=== PATIENT | male | born 1940 | race Caucasian/White ===

== ENCOUNTER 2017-03-20 13:59 | Emergency (ER) | payer MEDICARE ==
[~2017-03-20] VITALS: Ht 172.7 cm; Wt 65.0 kg
[~2017-03-20 13:59] MED LIST: ACET1CAP18 PO; ALLE10TA10 PO; ATOR20TA15 PO; CLON.1 PO; COLL30T TOPICAL; DILA100C PO; FERR325T PO; HYDR25TA35 PO; KEPP10002 PO; LISI-515 PO; LORA-392 PO; MAGN400T2 PO; MAGNSOL PO; METO50TA PO; SERT-129 PO; TRIPOIN TOPICAL
[2017-03-20 14:00] VITALS: BP 192/86; PULSE 89; RESP 16; TEMP 98.1; O2SAT 98
--- NOTE | 2017-03-20 14:49 | PD ---
HPI Chief Complaint: Fall Time Seen by Provider: 14:34 Travel History International Travel<30 days: No Contact w/Intl Traveler<30days: No Traveled to known affect area: No History of Present Illness HPI 76-year-old male here for evaluation for right ankle pain status post fall prior to arrival. The injury occurred when the patient was transferring from his wheelchair to a bed and fell from a seated position to the floor because the wheelchair was not locked. Patient denies head injury. He denies loss of consciousness. He does have a history of dementia and is on Plavix. He is reporting right ankle pain. He denies headache, visual changes, chest pain, shortness of breath, abdominal pain. Symptom severity is mild. No alleviating factors PFSH Past Medical History Hx Anticoagulant Therapy: Yes (Plavix 75mg Daily) Arthritis: Yes (bilateral hands) Asthma: No Autoimmune Disease: No Anxiety: Yes Depression: Yes Heart Rhythm Problems: No Cancer: No Cardiovascular Problems: Yes High Cholesterol: Yes Chemotherapy: No Chest Pain: No Congestive Heart Failure: No COPD: No Cerebrovascular Accident: No Diabetes: Yes Diminished Hearing: Yes Endocrine: Yes GERD: Yes Genitourinary: No Headaches: Yes Hiatal Hernia: No Hypertension: Yes Immune Disorder: No Implanted Vascular Access Dvce: Yes Kidney Stones: No Musculoskeletal: No Neurologic: Yes Psychiatric: No Reproductive: No Respiratory: No Migraines: No Radiation Therapy: No Renal Failure: No Seizures: Yes ( st in 2011) Sickle Cell Disease: No Sleep Apnea: Yes Thyroid Disease: No Ulcer: No Past Surgical History Abdominal Surgery: Yes (appendectomy) AICD: No Appendectomy: Yes Arteriovenous Shunt: No Body Medical Devices: cardiac stents Cardiac Surgery: Yes (stent) Coronary Stent: Yes (X1) Ear Surgery: No Endocrine Surgery: No Eye Surgery: No Genitourinary Surgery: No Gynecologic Surgery: No Insulin Pump: No Joint Replacement: No Neurologic Surgery: Yes (CRANIOTOMY WITH SHUNT ) Oral Surgery: No Pacemaker: No Thoracic Surgery: No Tonsillectomy: Yes Other Surgery: Yes Social History Alcohol Use: No Tobacco Use: No Substance Use: No Allergies-Medications (Allergen,Severity, Reaction): Coded Allergies: Sulfa (Sulfonamide Antibiotics) (Unverified Allergy, Severe, 03/20/17) penicillin G (Unverified Allergy, Severe, RASHES, 11/3/17) Reported Meds & Prescriptions Reported Meds & Active Scripts Active Reported Plavix (Clopidogrel Bisulfate) 75 Mg Tab 75 Mg PO DAILY Sertraline (Sertraline HCl) 100 Mg Tab 100 Mg PO BID Metoprolol Tartrate 50 Mg Tab 50 Mg PO BID Magnesium Oxide 400 Mg Tab 400 Mg PO DIRECTED Allergy (Loratadine) 10 Mg Tab 10 Mg PO HS PRN Lisinopril 20 Mg Tab 20 Mg PO BID Keppra (Levetiracetam) 1,000 Mg Tab 1,000 Mg PO Q8HR PRN Dilantin (Phenytoin Extended) 100 Mg Cap 200 Mg PO BID Eq Magnesium Citrate (Magnesium Citrate) 1.745 Gm/30 Ml Lizzette 1.745 Gm PO PRN PRN Atorvastatin (Atorvastatin Calcium) 20 Mg Tab 20 Mg PO HS Review of Systems Except as stated in HPI: all other systems reviewed are Neg Physical Exam Narrative GENERAL: Well-nourished, well-developed patient. SKIN: Focused skin assessment warm/dry. No areas of ecchymosis HEAD: Normocephalic. Atraumatic EYES: No scleral icterus. No injection or drainage. NECK: Supple, trachea midline. No JVD or lymphadenopathy. No midline cervical spine tenderness CARDIOVASCULAR: Regular rate and rhythm without murmurs, gallops, or rubs. RESPIRATORY: Breath sounds equal bilaterally. No accessory muscle use. GASTROINTESTINAL: Abdomen soft, non-tender, nondistended. MUSCULOSKELETAL: No cyanosis, or edema. Right lower extremity: Tenderness to the lateral medial aspect. No swelling. No deformity. No areas of ecchymosis. 2+ distal pulses. Brisk cap refill. Full range of motion of the hip, knee. Reported tenderness with range of motion of the ankle BACK: Nontender without obvious deformity. No CVA tenderness. Data Data Last Documented VS Vital Signs Date Time Temp Pulse Resp B/P (MAP) Pulse Ox O2 Delivery O2 Flow Rate FiO2 03/20/17 15:10 59 18 172/77 (108) 96 Room Air 03/20/17 14:[address] Brain W/O Iv Contrast(Rout) (03/20/17 ) Ankle, Complete ([id number]) (03/20/17 ) MDM Medical Decision Making Medical Screen Exam Complete: Yes Emergency Medical Condition: Yes Differential Diagnosis Ankle fracture versus sprain versus ICH Narrative Course 76-year-old male here for evaluation of right ankle pain status post fall while transferring from his wheelchair to his bed. He reports no head injury or loss of consciousness. Patient does have a history of dementia and is on Plavix. CT scan of the brain, x-ray of the right ankle ordered and pending CT brain: Negative for acute findings X-ray right ankle: Negative for fracture dislocation Diagnostic studies discussed with patient and family. Return precautions discussed. Patient and family verbalizes understanding and agrees to plan Diagnosis Primary Impression: Ankle sprain Qualified Codes: S93.401A - Sprain of unspecified ligament of right ankle, initial encounter Referrals: Primary Care Physician Additional Instructions: Take [id number] Tylenol as needed for pain. Follow-up with her primary doctor. Return to emergency department if he developed new or worsening symptoms Disposition: 01 DISCHARGE HOME Condition: Stable Fabiola Hobbs Mar 20, 2017 14:49
[2017-03-20 15:10] VITALS: BP 172/77; PULSE 59; RESP 18; O2SAT 96
[2017-03-20] MEDS ORDERED: PLAV75TA29 PO (15:21)
--- NOTE | 2017-03-20 15:27 | RADRPT ---
EXAM DATE/TIME: 03/20/2017 15:07 [facility] COMPARISON: CT BRAIN W/O CONTRAST, March 31, 2016, 20:02. INDICATIONS : Trauma. Fall. RADIATION DOSE: 62.67 CTDIvol (mGy) MEDICAL HISTORY : Seizures. Diabetes mellitus type 2. Cardiovascular diseaseHypertension. SURGICAL HISTORY : Craniotomy. Coronary artery stent.Appendectomy. ENCOUNTER: Initial ACUITY: 1 day PAIN SCALE: 0/10 LOCATION: cranial TECHNIQUE: Multiple contiguous axial images were obtained of the head. Using automated exposure control and adj ustment of the mA and/or kV according to patient size, radiation dose was kept as low as reasonably a chievable to obtain optimal diagnostic quality images. DICOM format image data is available electro nically for review and comparison. FINDINGS: CEREBRUM: Mild central cerebral atrophy is stable. No evidence of midline shift, mass lesion, hemorrhage or acu te infarction. No extra-axial fluid collections are seen. POSTERIOR FOSSA: Encephalomalacia is again noted within the right cerebellar hemisphere. The brainstem is intact. The 4th ventricle is midline. The cerebellopontine angle is unremarkable. EXTRACRANIAL: The visualized portion of the orbits is intact. SKULL: Right occipital craniectomy is stable. No evidence of skull fracture. CONCLUSION: 1. Stable encephalomalacia involving the right cerebellar hemisphere. 2. Mild stable central cerebral atrophy. 3. No acute infarct, acute hemorrhage, mass effect or extra-axial fluid collections. Edmond Kauffman MD on March 20, 2017 at 15:23 Board Certified Radiologist. This report was verified electronically.
--- NOTE | 2017-03-20 15:38 | RADRPT ---
EXAM DATE/TIME: 03/20/2017 15:17 [facility] COMPARISON: No previous studies available for comparison. INDICATIONS : Right ankle pain after patient fell from wheelchair today MEDICAL HISTORY : None. SURGICAL HISTORY : None. ENCOUNTER: Initial ACUITY: 1 day PAIN SCORE: 5/10 LOCATION: Right entire ankle FINDINGS: Moderate vascular calcifications are evident. There is disuse osteopenia. There is no evidence for fracture. CONCLUSION: Negative for fracture. Mike Grimes MD FACR on March 20, 2017 at 15:36 Board Certified Radiologist. This report was verified electronically.
[2017-03-20 17:59] VITALS: BP 162/74
== END 2017-03-20 18:00 | disposition home or self-care (01) ==
LOC: PHEFT 13:59
DX: S93.401A Sprain of unspecified ligament of right ankle, initial encounter (principal); I10 Essential (primary) hypertension; W05.0XXA Fall from non-moving wheelchair, initial encounter; Y93.89 Activity, other specified
CPT/HCPCS: 70450; 73610; 99284

== ENCOUNTER 2018-03-04 13:52 | Inpatient (IN) ==
[2018-03-04] MEDS ORDERED: Sodium Chlor 0.9% Inj 500 ML IV.SIG SCH ×2 (16:00→17:00)
--- NOTE | 2018-03-04 16:00 | ED ---
HPI General Chief complaint: Nausea/Vomiting/Diarrhea Stated complaint: fever x thursday-n/v/d dark urine Time Seen by Provider: 03/04/18 15:15 Source: patient Mode of arrival: ambulatory Limitations: no limitations History of Present Illness HPI narrative: Patient is a 77-year-old male brought in by due to concerns for nausea and vomiting. Per , patient was running a fever over the weekend , as high as 101. She says that is improved, but he continued to vomit. She says that she is concerned he may be dehydrated. She reports that he has become more weak and less responsive, so she brought him in. Patient is awake, he has no complaints. Per , he never complains about anything. Severity is moderate. Related Data Home Medications Medication Instructions Recorded Confirmed atorvastatin 20 mg PO DAILY 03/04/18 03/04/18 clopidogrel 75 mg PO DAILY 03/04/18 03/04/18 levetiracetam 1,000 mg PO TID 03/04/18 03/04/18 lisinopril 20 mg PO BID 03/04/18 03/04/18 metoprolol tartrate 50 mg PO BID 03/04/18 03/04/18 phenytoin sodium extended 100 mg PO DAILY 03/04/18 03/04/18 sertraline 100 mg PO BID 03/04/18 03/04/18 Allergies Allergy/AdvReac Type Severity Reaction Status Date / Time penicillin G Allergy Severe RASHES Verified 03/04/18 14:00 Sulfa (Sulfonamide Allergy Severe Rash Verified 03/04/18 14:00 Antibiotics) Review of Systems ROS Unobtainable ROS Unobtainable: unobtainable due to mental status PMFSH Medical History Medical History AVM (arteriovenous malformation) (Acute) CAD (coronary artery disease) (Acute) Depression (Acute) HTN (hypertension) (Acute) High cholesterol (Acute) History of brain tumor (Acute) History of seizure (Acute) Surgical History Surgical History History of appendectomy (Acute) History of coronary artery stent placement (Acute) History of tonsillectomy (Acute) Family History Family History Mother Family history of heart disease Social History Social History Substance History: No History of Abuse Smoking Status: Unknown if ever smoked How Often Do You Have a Drink Containing Alcohol: Never Recent Travel in [facility] within the Last 8 Weeks: No Recent Out of Country Travel within the Last 8 Weeks: No Immunization History Tetanus Immunization: Unsure Exam Narrative Exam Narrative: GENERAL: Awake and alert, no acute distress. SKIN: Focused skin assessment warm/dry. No wounds or signs of infection. HEAD: Atraumatic. Normocephalic. EYES: Pupils equal and round. No scleral icterus. ENT: Mucous membranes pink and moist. NECK: Trachea midline. No JVD. CARDIOVASCULAR: Regular rate and rhythm. No murmur appreciated. RESPIRATORY: No accessory muscle use. Clear to auscultation. Breath sounds equal bilaterally. GASTROINTESTINAL: Abdomen soft, non-tender, nondistended. MUSCULOSKELETAL: No obvious deformities. No clubbing. No cyanosis. No edema. NEUROLOGICAL: Awake and alert. No obvious cranial nerve deficits. Motor grossly within normal limits. Course Initial Documented Vital Signs Temperature 99.6 F 03/04/18 13:56 Pulse Rate 70 03/04/18 13:56 Respiratory Rate 18 03/04/18 13:56 Blood Pressure 171/77 H 03/04/18 13:56 Pulse Oximetry 96 03/04/18 13:56 Last Documented Vital Signs Temperature 98.2 F 03/07/18 04:40 Pulse Rate 81 03/07/18 05:08 Respiratory Rate 18 03/07/18 04:40 Blood Pressure 189/81 H 03/07/18 05:08 Pulse Oximetry 96 03/07/18 05:08 Medical Decision Making [facility] Narrative Medical decision making narrative: Patient is a 77-year-old male who comes in due to vomiting and diarrhea. reports fever over the weekend, currently is afebrile. IV established, labs sent. Labs concerning for elevated lipase, AST, ALT, bilirubin. CT abdomen pelvis performed shows possible cholecystitis. Patient given antibiotics. Given IV fluids. Given Zofran. Patient did become more alert with medications. Concern is patient may need ERCP, he will be transferred to the main hospital for admission. Medical Screen Exam Complete: Yes Emergency Medical Condition: Yes Differential Diagnosis Differential Diagnosis: Cholecystitis versus pancreatitis versus dehydration versus obstruction versus electrolyte abnormality Medical Records Medical records reviewed: Yes I reviewed the patient's medical records. Lab Data Lab results reviewed: Yes I reviewed the patient's lab results. Result diagrams: 03/07/18 05:45 03/07/18 05:45 Lab Results 03/04/18 03/04/18 03/04/18 Range/Units 16:17 16:17 16:17 CBC w Diff WBC (4.0-11.0) th/mm3 RBC (4.50-5.90) mil/mm3 Hgb (13.0-17.0) gm/dL Hct (39.0-51.0) % MCV (80.0-100.0) fL MCH (27.0-34.0) pg MCHC (32.0-36.0) % RDW (11.6-17.2) % Plt Count (150-450) th/mm3 MPV (7.0-11.0) fL Prelim Diff (Auto) Neut % (Auto) (16.0-70.0) % Lymph % (Auto) (9.0-44.0) % [place] % (Auto) (0.0-8.0) % Eos % (Auto) (0.0-4.0) % Baso % (Auto) (0.0-2.0) % Neut # (Auto) (1.8-7.7) th/mm3 Lymph # (Auto) (1.0-4.8) th/mm3 [place] # (Auto) (0.0-0.9) th/mm3 Eos # (Auto) (0.0-0.4) th/mm3 Baso # (Auto) (0.0-0.2) th/mm3 WBC Differential Diff Scan Differential Comment Platelet Estimate (Normal) Platelet Morphology (Normal) PT 13.2 H (9.8-11.6) sec INR 1.3 Ratio APTT 38.5 H (24.3-30.1) sec Sodium (136-145) meq/L Potassium (3.5-5.1) meq/L Chloride (98-107) meq/L Carbon Dioxide (21.0-32.0) meq/L Anion Gap (5-15) meq/L BUN (7-18) mg/dL Creatinine (0.60-1.30) mg/dL Estimated GFR (>89) mL/min POC Glucose (68-110) mg/dl Random Glucose (74-106) mg/dL Lactic Acid 0.9 (0.4-2.0) mmol/L Calcium (8.5-10.1) mg/dL Magnesium (1.5-2.5) mg/dL Total Bilirubin (0.2-1.0) mg/dL AST (15-37) U/L ALT (12-78) U/L Alkaline Phosphatase (45-117) U/L Ammonia (11-32) mcmol/L Total Creatine Kinase 64 (39-308) U/L Troponin I 0.02 (0.02-0.05) ng/mL Total Protein (6.4-8.2) g/dL Albumin (3.4-5.0) g/dL Lipase (73-393) U/L CA 19-9 Antigen (0.0-35.0) U/mL Urine Color (Yellw/Straw) Urine Clarity (Clear) Urine pH (5.0-8.5) Ur Specific [place] (1.002-1.035) Urine Protein (Neg-Trace) mg/dL Urine Glucose (UA) (Negative) mg/dL Urine Ketones (Negative) mg/dL Urine Occult Blood (Negative) Urine Nitrate (Negative) Urine Bilirubin (Negative) Urine Ictotest (Negative) Urine Urobilinogen (Less than 2) mg/dL Ur Leukocyte Esterase (Negative) Urine RBC (0-3) /hpf Urine WBC (0-5) /hpf Urine Bacteria (None) /hpf Hyaline Casts (0-3) /lpf Urine Mucus (Occasional) /lpf Micro UA Comment Ur Microscopic Review Urine Culture Comments Phenytoin (10.0-20.0) mcg/mL 03/04/18 03/04/18 03/04/18 Range/Units 16:17 16:17 16:30 CBC w Diff Slide review pending WBC 9.5 (4.0-11.0) th/mm3 RBC 3.59 L (4.50-5.90) mil/mm3 Hgb 10.3 L (13.0-17.0) gm/dL Hct 31.0 L (39.0-51.0) % MCV 86.4 (80.0-100.0) fL MCH 28.8 (27.0-34.0) pg MCHC 33.4 (32.0-36.0) % RDW 14.1 (11.6-17.2) % Plt Count 209 (150-450) th/mm3 MPV 8.9 (7.0-11.0) fL Prelim Diff (Auto) Neut % (Auto) 82.5 H (16.0-70.0) % Lymph % (Auto) 9.4 (9.0-44.0) % [place] % (Auto) 6.9 (0.0-8.0) % Eos % (Auto) 0.9 (0.0-4.0) % Baso % (Auto) 0.3 (0.0-2.0) % Neut # (Auto) 7.8 H (1.8-7.7) th/mm3 Lymph # (Auto) 0.9 L (1.0-4.8) th/mm3 [place] # (Auto) 0.7 (0.0-0.9) th/mm3 Eos # (Auto) 0.1 (0.0-0.4) th/mm3 Baso # (Auto) 0.0 (0.0-0.2) th/mm3 WBC Differential . Diff Scan Auto diff confirmed Differential Comment . Platelet Estimate Normal (Normal) Platelet Morphology Normal (Normal) PT (9.8-11.6) sec INR Ratio APTT (24.3-30.1) sec Sodium 135 L (136-145) meq/L Potassium 3.2 L (3.5-5.1) meq/L Chloride 99 (98-107) meq/L Carbon Dioxide 26.7 (21.0-32.0) meq/L Anion Gap 9 (5-15) meq/L BUN 14 (7-18) mg/dL Creatinine 0.93 (0.60-1.30) mg/dL Estimated GFR 79 L (>89) mL/min POC Glucose (68-110) mg/dl Random Glucose 416 H (74-106) mg/dL Lactic Acid (0.4-2.0) mmol/L Calcium 7.9 L (8.5-10.1) mg/dL Magnesium 2.0 (1.5-2.5) mg/dL Total Bilirubin 1.9 H (0.2-1.0) mg/dL AST 130 H (15-37) U/L ALT 154 H (12-78) U/L Alkaline Phosphatase 872 H (45-117) U/L Ammonia (11-32) mcmol/L Total Creatine Kinase (39-308) U/L Troponin I (0.02-0.05) ng/mL Total Protein 6.4 (6.4-8.2) g/dL Albumin 1.9 L (3.4-5.0) g/dL Lipase 1635 H (73-393) U/L CA 19-9 Antigen (0.0-35.0) U/mL Urine Color Dark-yellow (Yellw/Straw) Urine Clarity Clear (Clear) Urine pH 6.5 (5.0-8.5) Ur Specific [place] 1.025 (1.002-1.035) Urine Protein 300 or greater H (Neg-Trace) mg/dL Urine Glucose (UA) 1000 or greater H (Negative) mg/dL Urine Ketones Negative (Negative) mg/dL Urine Occult Blood Moderate H (Negative) Urine Nitrate Negative (Negative) Urine Bilirubin Moderate H (Negative) Urine Ictotest Positive H (Negative) Urine Urobilinogen 1.0 (Less than 2) mg/dL Ur Leukocyte Esterase Negative (Negative) Urine RBC 4-15 H (0-3) /hpf Urine WBC 0-5 (0-5) /hpf Urine Bacteria Few H (None) /hpf Hyaline Casts 0-3 (0-3) /lpf Urine Mucus Few H (Occasional) /lpf Micro UA Comment Cath-culture ind Ur Microscopic Review Microscopic reviewed Urine Culture Comments Cath-cult indicated Phenytoin (10.0-20.0) mcg/mL 03/04/18 03/05/18 03/05/18 Range/Units 19:10 06:00 06:00 CBC w Diff WBC 8.6 (4.0-11.0) th/mm3 RBC 3.33 L (4.50-5.90) mil/mm3 Hgb 9.6 L (13.0-17.0) gm/dL Hct 29.7 L (39.0-51.0) % MCV 89.1 (80.0-100.0) fL MCH 28.9 (27.0-34.0) pg MCHC 32.4 (32.0-36.0) % RDW 14.4 (11.6-17.2) % Plt Count 175 (150-450) th/mm3 MPV 8.4 (7.0-11.0) fL Prelim Diff (Auto) Neut % (Auto) 81.0 H (16.0-70.0) % Lymph % (Auto) 10.5 (9.0-44.0) % [place] % (Auto) 7.2 (0.0-8.0) % Eos % (Auto) 1.0 (0.0-4.0) % Baso % (Auto) 0.3 (0.0-2.0) % Neut # (Auto) 7.0 (1.8-7.7) th/mm3 Lymph # (Auto) 0.9 L (1.0-4.8) th/mm3 [place] # (Auto) 0.6 (0.0-0.9) th/mm3 Eos # (Auto) 0.1 (0.0-0.4) th/mm3 Baso # (Auto) 0.0 (0.0-0.2) th/mm3 WBC Differential . Diff Scan Differential Comment Auto diff final Platelet Estimate (Normal) Platelet Morphology (Normal) PT (9.8-11.6) sec INR Ratio APTT (24.3-30.1) sec Sodium 141 (136-145) meq/L Potassium 3.3 L (3.5-5.1) meq/L Chloride 106 (98-107) meq/L Carbon Dioxide 29.9 (21.0-32.0) meq/L Anion Gap 5 (5-15) meq/L BUN 10 (7-18) mg/dL Creatinine 0.67 (0.60-1.30) mg/dL Estimated GFR Greater than 89 (>89) mL/min POC Glucose 307 H (68-110) mg/dl Random Glucose 215 H D (74-106) mg/dL Lactic Acid (0.4-2.0) mmol/L Calcium 7.9 L (8.5-10.1) mg/dL Magnesium (1.5-2.5) mg/dL Total Bilirubin 1.5 H (0.2-1.0) mg/dL AST 94 H (15-37) U/L ALT 122 H (12-78) U/L Alkaline Phosphatase 755 H (45-117) U/L Ammonia (11-32) mcmol/L Total Creatine Kinase (39-308) U/L Troponin I (0.02-0.05) ng/mL Total Protein 5.7 L D (6.4-8.2) g/dL Albumin 1.8 L (3.4-5.0) g/dL Lipase (73-393) U/L CA 19-9 Antigen (0.0-35.0) U/mL Urine Color (Yellw/Straw) Urine Clarity (Clear) Urine pH (5.0-8.5) Ur Specific [place] (1.002-1.035) Urine Protein (Neg-Trace) mg/dL Urine Glucose (UA) (Negative) mg/dL Urine Ketones (Negative) mg/dL Urine Occult Blood (Negative) Urine Nitrate (Negative) Urine Bilirubin (Negative) Urine Ictotest (Negative) Urine Urobilinogen (Less than 2) mg/dL Ur Leukocyte Esterase (Negative) Urine RBC (0-3) /hpf Urine WBC (0-5) /hpf Urine Bacteria (None) /hpf Hyaline Casts (0-3) /lpf Urine Mucus (Occasional) /lpf Micro UA Comment Ur Microscopic Review Urine Culture Comments Phenytoin (10.0-20.0) mcg/mL 03/06/18 03/06/18 03/06/18 Range/Units 07:32 07:32 19:13 CBC w Diff WBC 10.5 (4.0-11.0) th/mm3 RBC 3.18 L (4.50-5.90) mil/mm3 Hgb 9.4 L (13.0-17.0) gm/dL Hct 28.2 L (39.0-51.0) % MCV 88.9 (80.0-100.0) fL MCH 29.5 (27.0-34.0) pg MCHC 33.2 (32.0-36.0) % RDW 14.5 (11.6-17.2) % Plt Count 194 (150-450) th/mm3 MPV 8.3 (7.0-11.0) fL Prelim Diff (Auto) Neut % (Auto) (16.0-70.0) % Lymph % (Auto) (9.0-44.0) % [place] % (Auto) (0.0-8.0) % Eos % (Auto) (0.0-4.0) % Baso % (Auto) (0.0-2.0) % Neut # (Auto) (1.8-7.7) th/mm3 Lymph # (Auto) (1.0-4.8) th/mm3 [place] # (Auto) (0.0-0.9) th/mm3 Eos # (Auto) (0.0-0.4) th/mm3 Baso # (Auto) (0.0-0.2) th/mm3 WBC Differential Diff Scan Differential Comment Platelet Estimate (Normal) Platelet Morphology (Normal) PT (9.8-11.6) sec INR Ratio APTT (24.3-30.1) sec Sodium 142 (136-145) meq/L Potassium 2.9 L* (3.5-5.1) meq/L Chloride 107 (98-107) meq/L Carbon Dioxide 24.8 (21.0-32.0) meq/L Anion Gap 10 (5-15) meq/L BUN 8 (7-18) mg/dL Creatinine 0.49 L (0.60-1.30) mg/dL Estimated GFR Greater than 89 (>89) mL/min POC Glucose (68-110) mg/dl Random Glucose 145 H (74-106) mg/dL Lactic Acid (0.4-2.0) mmol/L Calcium 7.7 L (8.5-10.1) mg/dL Magnesium (1.5-2.5) mg/dL Total Bilirubin 1.3 H (0.2-1.0) mg/dL AST 93 H (15-37) U/L ALT 110 H (12-78) U/L Alkaline Phosphatase 892 H (45-117) U/L Ammonia (11-32) mcmol/L Total Creatine Kinase (39-308) U/L Troponin I (0.02-0.05) ng/mL Total Protein 5.7 L (6.4-8.2) g/dL Albumin 1.7 L (3.4-5.0) g/dL Lipase 503 H (73-393) U/L CA 19-9 Antigen 173.5 H (0.0-35.0) U/mL Urine Color (Yellw/Straw) Urine Clarity (Clear) Urine pH (5.0-8.5) Ur Specific [place] (1.002-1.035) Urine Protein (Neg-Trace) mg/dL Urine Glucose (UA) (Negative) mg/dL Urine Ketones (Negative) mg/dL Urine Occult Blood (Negative) Urine Nitrate (Negative) Urine Bilirubin (Negative) Urine Ictotest (Negative) Urine Urobilinogen (Less than 2) mg/dL Ur Leukocyte Esterase (Negative) Urine RBC (0-3) /hpf Urine WBC (0-5) /hpf Urine Bacteria (None) /hpf Hyaline Casts (0-3) /lpf Urine Mucus (Occasional) /lpf Micro UA Comment Ur Microscopic Review Urine Culture Comments Phenytoin (10.0-20.0) mcg/mL 03/07/18 03/07/18 03/07/18 Range/Units 04:55 05:45 05:45 CBC w Diff WBC 7.4 (4.0-11.0) th/mm3 RBC 3.22 L (4.50-5.90) mil/mm3 Hgb 9.5 L (13.0-17.0) gm/dL Hct 28.7 L (39.0-51.0) % MCV 89.1 (80.0-100.0) fL MCH 29.4 (27.0-34.0) pg MCHC 33.0 (32.0-36.0) % RDW 14.2 (11.6-17.2) % Plt Count 200 (150-450) th/mm3 MPV 8.0 (7.0-11.0) fL Prelim Diff (Auto) Slide review pending Neut % (Auto) 80.2 H (16.0-70.0) % Lymph % (Auto) 10.2 (9.0-44.0) % [place] % (Auto) 7.3 (0.0-8.0) % Eos % (Auto) 2.0 (0.0-4.0) % Baso % (Auto) 0.3 (0.0-2.0) % Neut # (Auto) 5.9 (1.8-7.7) th/mm3 Lymph # (Auto) 0.8 L (1.0-4.8) th/mm3 [place] # (Auto) 0.5 (0.0-0.9) th/mm3 Eos # (Auto) 0.2 (0.0-0.4) th/mm3 Baso # (Auto) 0.0 (0.0-0.2) th/mm3 WBC Differential . Diff Scan Auto diff confirmed Differential Comment . Platelet Estimate Normal (Normal) Platelet Morphology Normal (Normal) PT (9.8-11.6) sec INR Ratio APTT (24.3-30.1) sec Sodium 141 (136-145) meq/L Potassium 2.9 L* (3.5-5.1) meq/L Chloride 107 (98-107) meq/L Carbon Dioxide 23.2 (21.0-32.0) meq/L Anion Gap 11 (5-15) meq/L BUN 8 (7-18) mg/dL Creatinine 0.75 (0.60-1.30) mg/dL Estimated GFR Greater than 89 (>89) mL/min POC Glucose 207 H (68-110) mg/dl Random Glucose 225 H (74-106) mg/dL Lactic Acid (0.4-2.0) mmol/L Calcium 7.5 L (8.5-10.1) mg/dL Magnesium 1.7 (1.5-2.5) mg/dL Total Bilirubin 1.0 (0.2-1.0) mg/dL AST 95 H (15-37) U/L ALT 100 H (12-78) U/L Alkaline Phosphatase 950 H (45-117) U/L Ammonia (11-32) mcmol/L Total Creatine Kinase 40 (39-308) U/L Troponin I (0.02-0.05) ng/mL Total Protein 5.6 L (6.4-8.2) g/dL Albumin 1.7 L (3.4-5.0) g/dL Lipase (73-393) U/L CA 19-9 Antigen (0.0-35.0) U/mL Urine Color (Yellw/Straw) Urine Clarity (Clear) Urine pH (5.0-8.5) Ur Specific [place] (1.002-1.035) Urine Protein (Neg-Trace) mg/dL Urine Glucose (UA) (Negative) mg/dL Urine Ketones (Negative) mg/dL Urine Occult Blood (Negative) Urine Nitrate (Negative) Urine Bilirubin (Negative) Urine Ictotest (Negative) Urine Urobilinogen (Less than 2) mg/dL Ur Leukocyte Esterase (Negative) Urine RBC (0-3) /hpf Urine WBC (0-5) /hpf Urine Bacteria (None) /hpf Hyaline Casts (0-3) /lpf Urine Mucus (Occasional) /lpf Micro UA Comment Ur Microscopic Review Urine Culture Comments Phenytoin 3.0 L (10.0-20.0) mcg/mL 03/07/18 Range/Units 05:45 CBC w Diff WBC (4.0-11.0) th/mm3 RBC (4.50-5.90) mil/mm3 Hgb (13.0-17.0) gm/dL Hct (39.0-51.0) % MCV (80.0-100.0) fL MCH (27.0-34.0) pg MCHC (32.0-36.0) % RDW (11.6-17.2) % Plt Count (150-450) th/mm3 MPV (7.0-11.0) fL Prelim Diff (Auto) Neut % (Auto) (16.0-70.0) % Lymph % (Auto) (9.0-44.0) % [place] % (Auto) (0.0-8.0) % Eos % (Auto) (0.0-4.0) % Baso % (Auto) (0.0-2.0) % Neut # (Auto) (1.8-7.7) th/mm3 Lymph # (Auto) (1.0-4.8) th/mm3 [place] # (Auto) (0.0-0.9) th/mm3 Eos # (Auto) (0.0-0.4) th/mm3 Baso # (Auto) (0.0-0.2) th/mm3 WBC Differential Diff Scan Differential Comment Platelet Estimate (Normal) Platelet Morphology (Normal) PT (9.8-11.6) sec INR Ratio APTT (24.3-30.1) sec Sodium (136-145) meq/L Potassium (3.5-5.1) meq/L Chloride (98-107) meq/L Carbon Dioxide (21.0-32.0) meq/L Anion Gap (5-15) meq/L BUN (7-18) mg/dL Creatinine (0.60-1.30) mg/dL Estimated GFR (>89) mL/min POC Glucose (68-110) mg/dl Random Glucose (74-106) mg/dL Lactic Acid (0.4-2.0) mmol/L Calcium (8.5-10.1) mg/dL Magnesium (1.5-2.5) mg/dL Total Bilirubin (0.2-1.0) mg/dL AST (15-37) U/L ALT (12-78) U/L Alkaline Phosphatase (45-117) U/L Ammonia 44 H (11-32) mcmol/L Total Creatine Kinase (39-308) U/L Troponin I (0.02-0.05) ng/mL Total Protein (6.4-8.2) g/dL Albumin (3.4-5.0) g/dL Lipase (73-393) U/L CA 19-9 Antigen (0.0-35.0) U/mL Urine Color (Yellw/Straw) Urine Clarity (Clear) Urine pH (5.0-8.5) Ur Specific [place] (1.002-1.035) Urine Protein (Neg-Trace) mg/dL Urine Glucose (UA) (Negative) mg/dL Urine Ketones (Negative) mg/dL Urine Occult Blood (Negative) Urine Nitrate (Negative) Urine Bilirubin (Negative) Urine Ictotest (Negative) Urine Urobilinogen (Less than 2) mg/dL Ur Leukocyte Esterase (Negative) Urine RBC (0-3) /hpf Urine WBC (0-5) /hpf Urine Bacteria (None) /hpf Hyaline Casts (0-3) /lpf Urine Mucus (Occasional) /lpf Micro UA Comment Ur Microscopic Review Urine Culture Comments Phenytoin (10.0-20.0) mcg/mL Imaging Data Radiologist's impression: Chest X-Ray 03/04/18 15:28 CONCLUSION: Negative examination. Head CT 03/04/18 15:28 CONCLUSION: 1. No acute findings. . Abdomen/Pelvis CT 03/04/18 16:53 CONCLUSION: 1. Mural thickening of the gallbladder. Questionable mild inflammatory changes around the gallbladder and pancreas. 2. Small hiatal hernia. 3. No bowel obstruction, free fluid or free air. Byrd catheter in bladder. Cholangiopancreatography MRI 03/05/18 00:00 CONCLUSION: 1. Abnormal gallbladder with wall thickening, pericholecystic inflammation, and possibly trace pericholecystic fluid, findings concerning for cholecystitis. There is sludge within the gallbladder. 2. Acute pancreatitis. Discharge Plan Discharge Disposition Patient Disposition: 30 Still Patient Discharge Condition Condition: Stable Discharge Details Diagnosis: Gallstone pancreatitis Physicians Team ED Provider: Maranda Millan Primary Care Provider: Dada Mazariegos Attending Provider: Gerald Wilson Other Providers: Tamra Piña ; Mayo Martinez ; [facility],Insurance ; Albaro Coley Discharge Interventions Interventions: ED Discharge Assessment Last Done: 03/04/18 23:30 Vital Signs Last Done: 03/04/18 23:30 Status ED Status: Left Department Discharge Information Discharge Date/Time: 03/04/18 23:31
[2018-03-04 16:39] LABS: Chloride 99 meq/L (98-107); Potassium 3.2 meq/L (3.5-5.1); Sodium 135 meq/L (136-145)
[2018-03-04 16:41] LABS: Baso % (Auto) 0.3 % (0.0-2.0); Eos # (Auto) 0.1 th/mm3 (0.0-0.4); Eos % (Auto) 0.9 % (0.0-4.0); Hemoglobin 10.3 gm/dL (13.0-17.0); Lymph # (Auto) 0.9 th/mm3 (1.0-4.8); Lymph % (Auto) 9.4 % (9.0-44.0); Mean Corpuscular HGB Conc 33.4 % (32.0-36.0); Mean Corpuscular Hemoglobin 28.8 pg (27.0-34.0); Mean Corpuscular Volume 86.4 fL (80.0-100.0); Mean Platelet Volume 8.9 fL (7.0-11.0); Mono # (Auto) 0.7 th/mm3 (0.0-0.9); Mono % (Auto) 6.9 % (0.0-8.0); Neut # (Auto) 7.8 th/mm3 (1.8-7.7); Neut % (Auto) 82.5 % (16.0-70.0); Platelet Count 209 th/mm3 (150-450); Red Blood Count 3.59 mil/mm3 (4.50-5.90); Red Cell Distribution Width 14.1 % (11.6-17.2); White Blood Count 9.5 th/mm3 (4.0-11.0)
--- NOTE | 2018-03-04 16:41 | CT ---
EXAM DATE: 03/04/2018 3:50 PM EDT AGE/SEX: 77 years / Male INDICATIONS: Altered mental status today. General weakness, fever, nausea, vomiting and diarrhea x 1 week. CLINICAL DATA: This is the patient's initial encounter. Patient reports that signs and symptoms have been present for 1 week and indicates a pain score of 0/10. MEDICAL/SURGICAL HISTORY: Seizures. Hypertension. Cardiovascular disease. Brain tumor. Coronary artery stent. Appendectomy. Brain tumor removed. RADIATION DOSE: 56.87 CTDI (mGy) COMPARISON: [facility], CT BRAIN W/O CONTRAST, 03/20/2017. . TECHNIQUE: CT of the head without contrast. Using automated exposure control and adjustment of the mA and/or kV according to patient size, radiation dose was kept as low as reasonably achievable to ob tain optimal diagnostic quality images. DICOM format image data is available electronically for revi ew and comparison. FINDINGS: Patient has had previous right occipital craniectomy with encephalomalacia and dystrophic calcificati on of the right cerebellar hemisphere. There is no evidence of intracranial hemorrhage, acute infarct , or mass. Remote right frontal insult with encephalomalacia seen. There is mild prominence of the CS F spaces. No fractures. CONCLUSION: 1. No acute findings. . Electronically signed by: Ehsan Canseco MD 03/04/2018 4:40 PM EDT
[2018-03-04 16:42] LABS: Albumin 1.9 g/dL (3.4-5.0); Anion Gap 9 meq/L (5-15); Calcium 7.9 mg/dL (8.5-10.1); Carbon Dioxide 26.7 meq/L (21.0-32.0)
[2018-03-04 16:44] LABS: Activated Partial Thrombo Time 38.5 sec (24.3-30.1); INR 1.3 Ratio; Prothrombin Time 13.2 sec (9.8-11.6)
[2018-03-04 16:46] LABS: Alanine Aminotransferase 154 U/L (12-78); Aspartate Aminotransferase 130 U/L (15-37); Blood Urea Nitrogen 14 mg/dL (7-18); Glomerular Filtration Rate 79 mL/min (>89); Glucose,Random 416 mg/dL (74-106)
[2018-03-04 16:46] LABS: Bilirubin,Urine Moderate (Negative); Clarity,Urine Clear (Clear); Leukocyte Esterase,Urine Negative (Negative); Nitrite,Urine Negative (Negative); PH,Urine 6.5 (5.0-8.5); Specific Gravity,Urine 1.025 (1.002-1.035)
[2018-03-04 16:48] LABS: Troponin I 0.02 ng/mL (0.02-0.05)
[2018-03-04 16:49] LABS: Color,Urine Dark-Yellow (Yellw/Straw)
[2018-03-04 16:51] LABS: Ictotest,Urine Positive (Negative)
[2018-03-04 16:51] LABS: Alkaline Phosphatase 872 U/L (45-117); Lipase 1635 U/L (73-393); Total Protein 6.4 g/dL (6.4-8.2)
[2018-03-04 16:53] LABS: WBC,Urine 0-5 /hpf (0-5)
[2018-03-04 16:55] LABS: Bacteria,Urine Few /hpf; Hyaline Casts,Urine 0-3 /lpf (0-3); Mucus,Urine Few /lpf (Occasional)
--- NOTE | 2018-03-04 17:02 | XR ---
EXAM DATE: 03/04/2018 3:28 PM EDT AGE/SEX: 77 years / Male INDICATIONS: Weakness, fever, nausea, and vomiting. CLINICAL DATA: This is the patient's initial encounter. Patient reports that signs and symptoms have been present for 1 week and indicates a pain score of 0/10. MEDICAL/SURGICAL HISTORY: . Seizures. Hypertension. Cardiovascular disease. Brain tumor. . Cor onary artery stent. Appendectomy. Brain tumor removed. COMPARISON: No prior exams available for comparison. FINDINGS: A single AP view of the chest demonstrates the lungs to be symmetrically aerated without evidence of mass, infiltrate or effusion. The cardiomediastinal contours are unremarkable. Osseous structures a re intact. CONCLUSION: Negative examination. Electronically signed by: Quinten Hwang MD 03/04/2018 5:01 PM EDT
[2018-03-04 17:38] LABS: Platelet Estimate Normal (Normal); Platelet Morphology Normal (Normal)
--- NOTE | 2018-03-04 18:54 | CT ---
EXAM DATE: 03/04/2018 6:14 PM EDT AGE/SEX: 77 years / Male INDICATIONS: General weakness. Fever. Nausea, vomiting and diarrhea. CLINICAL DATA: This is the patient's initial encounter. Patient reports that signs and symptoms have been present for 1 week and indicates a pain score of 0/10. MEDICAL/SURGICAL HISTORY: Seizures. Cardiovascular disease. Hypertension. Brain tumor. James endectomy. Coronary artery stent. Brain tumor removed. ORAL CONTRAST: No oral contrast ingested. RADIATION DOSE: 11.17 CTDI (mGy) COMPARISON: [facility] – [place] ABDOMEN & PELVIS W CONTRAST, 03/25/2015. . TECHNIQUE: Multiple contiguous axial images were obtained through the abdomen and pelvis following b olus infusion of 90 ml Omnipaque 350 (iohexol) nonionic water-soluble contrast as a single exam dos e. No oral contrast ingested. Using automated exposure control and adjustment of the mA and/or kV ac cording to patient size, radiation dose was kept as low as reasonably achievable to obtain optimal di agnostic quality images. DICOM format image data is available electronically for review and comparis on. FINDINGS: There is minimal basilar atelectasis in the lungs. Small hiatal hernia. No acute findings in the live r, spleen, adrenals, kidneys. There is mural thickening of the gallbladder with questionable mild pericholecystic inflammatory guillen ges. There is also some mild infiltration of fat around the pancreas most characteristic of a mild pa ncreatitis. No free fluid or free air. No bowel obstruction. Byrd catheter present in bladder. CONCLUSION: 1. Mural thickening of the gallbladder. Questionable mild inflammatory changes around the gallbladde r and pancreas. 2. Small hiatal hernia. 3. No bowel obstruction, free fluid or free air. Byrd catheter in bladder. Electronically signed by: Ashkan German MD 03/04/2018 6:53 PM EDT
[2018-03-04] MEDS ORDERED: Bisacodyl 10 MG Supp RECTAL PRN (22:17)
[2018-03-04] MEDS: Sod Chloride 0.9% Inj 1,000 ML IV.CONT SCH (23:01)
[2018-03-04] MEDS: levETIRAcetam 500 MG Tablet PO SCH (23:02)
--- NOTE | 2018-03-05 03:48 | P.HPIM ---
History of Present Illness Service: [facility] Primary Care Physician: Dada Mazariegos MD Chief Complaint: Nausea/vomiting/diarrhea History of Present Illness: Mr. Pena is a 77 y/o male with a history of cerebellar AVM s/p right suboccipital craniectomy for resection of cerebellar mass on 03/30/15, seizures , hypertension, CAD, depression, and hyperlipidemia who presented to the ER in [place] for nausea, diarrhea, vomiting, and fevers for 6 days. The patient was found to have findings suspicious for gallstone pancreatitis and was transferred to [facility] under the hospitalist service for further evaluation and management. . Inpatient Certification: I certify that the inpatient services were ordered in accordance with Medicare regulations governing the order. This includes certification that hospital inpatient services are reasonable and necessary and in the case of services not specified as inpatient-only under 42 CFR 419.22(n), that they are appropriately provided as inpatient services in accordance to with the 2-midnight benchmark under 43 CFR 412.3(e) Estimated Total Length of Stay (Days): 3 Plans for Post Hospital Care: Home Review of Systems unobtainable due to mental condition PMFSH - History History Provided By: Patient - Medical History Medical History: Medical History (Last Updated 03/05/18 @ 04:37 by CONCEPCIÓN Gray) AVM (arteriovenous malformation) CAD (coronary artery disease) Depression HTN (hypertension) High cholesterol History of brain tumor History of seizure - Surgical History Surgical History: Surgical History (Last Reviewed 03/05/18 @ 04:31 by CONCEPCIÓN Gray) History of appendectomy History of coronary artery stent placement History of tonsillectomy - Family History Family History: Family History (Last Updated 03/05/18 @ 04:37 by CONCEPCIÓN Gray) Mother Family history of heart disease - Tobacco History Smoking Status: Unknown if ever smoked - Alcohol History How Often Do You Have a Drink Containing Alcohol: Never - Substance Use History Substance History: No History of Abuse - Travel History Recent Travel in the [place] Within the Last 8 Weeks: No Recent Travel Out of the Country Within the Last 8 Weeks: No - Immunization History Tetanus Immunization: Unsure Medications and Allergies Active Medications: Active Medications Bisacodyl (Dulcolax Supp) 10 mg RECTAL DAILY PRN PRN Reason: SEVERE CONSITIPATION Clopidogrel Bisulfate (Plavix) 75 mg PO DAILY [facility] Sodium Chloride (Ns Inj) 500 mls @ 0 mls/hr IV.SIG BOLUS GINA Last Infusion: 03/04/18 17:31 Dose: Infused Sodium Chloride (Ns Inj) 500 mls @ 0 mls/hr IV.SIG BOLUS [facility] Last Infusion: 03/04/18 20:08 Dose: Infused Sodium Chloride (Ns Inj) 1,000 mls @ 84 mls/hr IV.CONT .[id number] [facility] Last Admin: 03/04/18 23:01 Dose: 84 mls/hr Lactulose (Lactulose Liq) 30 ml PO DAILY PRN PRN Reason: SEVERE CONSITIPATION Levetiracetam (Keppra) 1,000 mg PO TID [facility] Last Admin: 03/04/18 23:02 Dose: 1,000 mg Lisinopril (Prinivil) 20 mg PO BID [facility] Metoprolol Tartrate (Lopressor) 50 mg PO BID [facility] Ondansetron HCl (Zofran Inj) 4 mg IV.PUSH Q6H PRN PRN Reason: NAUSEA OR VOMITING Phenytoin Sodium (Dilantin) 100 mg PO DAILY [facility] Sennosides (Senokot) 17.2 mg PO Q12H PRN PRN Reason: Moderate Constipation Sertraline HCl (Zoloft) 100 mg PO BID [facility] Sodium Chloride (Ns Flush) 2 ml IV.FLUSH PRN PRN PRN Reason: FLUSH AFTER USING IV ACCESS Allergies Allergy/AdvReac Type Severity Reaction Status Date / Time penicillin G Allergy Severe RASHES Verified 03/04/18 14:00 Sulfa (Sulfonamide Allergy Severe Rash Verified 03/04/18 14:00 Antibiotics) Home Medications Medication Instructions Recorded Confirmed Type atorvastatin 20 mg PO DAILY 03/04/18 03/04/18 History clopidogrel 75 mg PO DAILY 03/04/18 03/04/18 History levetiracetam 1,000 mg PO TID 03/04/18 03/04/18 History lisinopril 20 mg PO BID 03/04/18 03/04/18 History metoprolol tartrate 50 mg PO BID 03/04/18 03/04/18 History phenytoin sodium extended 100 mg PO DAILY 03/04/18 03/04/18 History sertraline 100 mg PO BID 03/04/18 03/04/18 History Exam Vital signs: Vital Signs 03/04/18 13:56 03/04/18 18:00 03/04/18 20:51 Temperature 99.6 F Pulse Rate 70 71 73 Respiratory Rate 18 15 15 Blood Pressure 171/77 H 158/72 H 161/73 H Pulse Oximetry 96 99 98 03/04/18 23:30 03/05/18 00:56 Temperature 98.3 F Pulse Rate 78 79 Respiratory Rate 16 17 Blood Pressure 184/76 H 178/82 H Pulse Oximetry 100 96 Intake & Output 03/04/18 03/04/18 03/05/18 06:59 18:59 06:59 Intake Total 500 / 500 700 / 700 Balance 500 / 500 700 / 700 Weight 71.4 kg Intake: IV 500 / 500 700 / 700 NS Inj 500 ML @ Wide Open IV. 500 / 500 500 / 500 SIG BOLUS GINA Rx#:[id number] Rocephin Inj 1,000 MG In NS Inj 100 / 100 100 ML @ 200 mls/hr IV.SIG ONCE ONE Rx#:[id number] Flagyl 500 MG Inj 100 ML @ 100 100 / 100 mls/hr IV.SIG ONCE ONE Rx#: [id number] Other: Date of Last Bowel Movement 03/05/18 Narrative: GENERAL: This is an elderly male patient, in no apparent distress. SKIN: No rashes or lesions. Cool and dry. Jaundice noted. HEAD: Normocephalic. EYES: No injection or drainage. ENT: Nose without bleeding, purulent drainage. NECK: Trachea midline. No JVD. CARDIOVASCULAR: Regular rate and rhythm without murmurs, gallops, or rubs. RESPIRATORY: Clear to auscultation. Breath sounds equal bilaterally. No wheezes , rales, or rhonchi. GASTROINTESTINAL: Normal bowel sounds. Abdomen soft, non-tender, nondistended. No guarding. MUSCULOSKELETAL: Extremities without clubbing, cyanosis. NEUROLOGICAL: Awakened for exam and then alert. Follows commands. Confused ( chronic per EMR review) . Results - Labs CBC & Chem 7: 03/04/18 16:17 03/04/18 16:17 Labs: Short CBC 03/04/18 Range/Units 16:17 WBC 9.5 (4.0-11.0) th/mm3 Hgb 10.3 L (13.0-17.0) gm/dL Hct 31.0 L (39.0-51.0) % Plt Count 209 (150-450) th/mm3 BMP 03/04/18 16:17 Sodium 135 L Potassium 3.2 L Chloride 99 Carbon Dioxide 26.7 BUN 14 Creatinine 0.93 Calcium 7.9 L Cardiac Enzymes 03/04/18 Range/Units 16:17 Total Creatine Kinase 64 (39-308) U/L Troponin I 0.02 (0.02-0.05) ng/mL Liver Function 03/04/18 Range/Units 16:17 Total Bilirubin 1.9 H (0.2-1.0) mg/dL AST 130 H (15-37) U/L ALT 154 H (12-78) U/L Alkaline Phosphatase 872 H (45-117) U/L Albumin 1.9 L (3.4-5.0) g/dL Urine 03/04/18 Range/Units 16:30 Urine Color Dark-yellow (Yellw/Straw) Urine Clarity Clear (Clear) Urine pH 6.5 (5.0-8.5) Ur Specific [place] 1.025 (1.002-1.035) Urine Protein 300 or greater H (Neg-Trace) mg/dL Urine Glucose (UA) 1000 or greater H (Negative) mg/dL - Imaging Impressions Chest X-Ray 03/04/18 15:28 CONCLUSION: Negative examination. Head CT 03/04/18 15:28 CONCLUSION: 1. No acute findings. . Abdomen/Pelvis CT 03/04/18 16:53 CONCLUSION: 1. Mural thickening of the gallbladder. Questionable mild inflammatory changes around the gallbladder and pancreas. 2. Small hiatal hernia. 3. No bowel obstruction, free fluid or free air. Byrd catheter in bladder. Caprini VTE Risk Assessment Caprini VTE Risk Assessment: Moderate/High Risk (score >= 2) Caprini Risk Assessment Model: Point Value = 1 Point Value = 2 Point Value = 3 Point Value = 5 Age 41-60 Minor surgery BMI > 25 kg/m2 Swollen legs Varicose veins or History of unexplained or recurrent spontaneous Oral contraceptives or hormone replacement Sepsis (< 1 month) Serious lung disease, including pneumonia (< 1 month) Abnormal pulmonary function Acute myocardial infarction Congestive heart failure (< 1 month) History of inflammatory bowel disease Medical patient at bed rest Age 61-74 Arthroscopic surgery Major open surgery (> 45 min) Laparoscopic surgery (> 45 min) Malignancy Confined to bed (> 72 hours) Immobilizing plaster cast Central venous access Age >= 75 History of VTE Family history of VTE Factor V Leiden Prothrombin [id number] Lupus anticoagulant Anticardiolipin antibodies Elevated serum homocysteine Heparin-induced thrombocytopenia Other congenital or acquired thrombophilia Stroke (< 1 month) Elective arthroplasty Hip, pelvis, or leg fracture Acute spinal cord injury (< 1 month) Prophylaxis Regimen: Total Risk Factor Score Risk Level Prophylaxis Regimen 0-1 Low Early ambulation 2 Moderate Order ONE of the following: *Sequential Compression Device (SCD) *Heparin 5000 units SQ BID 3-4 Higher Order ONE of the following medications: *Heparin 5000 units SQ TID *Enoxaparin/Lovenox 40 mg SQ daily (WT < 150 kg, CrCl > 30 mL/min) *Enoxaparin/Lovenox 30 mg SQ daily (WT < 150 kg, CrCl > 10-29 mL/min) *Enoxaparin/Lovenox 30 mg SQ BID (WT < 150 kg, CrCl > 30 mL/min) AND/OR *Sequential Compression Device (SCD) 5 or more Highest Order ONE of the following medications: *Heparin 5000 units SQ TID (Preferred with Epidurals) *Enoxaparin/Lovenox 40 mg SQ daily (WT < 150 kg, CrCl > 30 mL/min) *Enoxaparin/Lovenox 30 mg SQ daily (WT < 150 kg, CrCl > 10-29 mL/min) *Enoxaparin/Lovenox 30 mg SQ BID (WT < 150 kg, CrCl > 30 mL/min) AND *Sequential Compression Device (SCD) Assessment and Plan - Plan Mr. Pena is a 77 y/o male with a history of cerebellar AVM s/p right suboccipital craniectomy for resection of cerebellar mass on 03/30/15, seizures , hypertension, CAD, depression, and hyperlipidemia who presented to the ER in [place] for nausea, diarrhea, vomiting, and fevers for 6 days. The patient was found to have findings suspicious for gallstone pancreatitis and was transferred to [facility] under the hospitalist service for further evaluation and management. Suspected gallstone pancreatitis -Abdomen/pelvis CT shows mural thickening of gallbladder, mild inflammatory changes around gallbladder and pancreas, no bowel obstruction -T bili 1.9, AST 130, ALT 154, alkaline phosphatase 872, lipase 1635 -Consult gastroenterology for possible ERCP -N.p.o. -Gentle IV fluid hydration with normal saline at 84 cc/h -Zofran 4 milligrams IV push every 6 hours as needed for nausea or vomiting Seizures -Continue home antiepileptics Keppra and Dilantin when able to take p.o. Hypokalemia -Replace potassium, repeat labs and monitor potassium levels, and replace further if needed History of coronary artery disease with stents -Resume home metoprolol -hold Plavix for now -resume after ERCP History of hypertension -Resume home lisinopril -Monitor trends in blood pressure readings and adjust treatments as needed DVT prophylaxis -SCDs Discussed Condition With: Dr. Walker . H&P: Quality - VTE Deep Vein Thrombosis/Pulmonary Embolism Present on Admission: No
[2018-03-05 07:24] LABS: Baso % (Auto) 0.3 % (0.0-2.0); Eos # (Auto) 0.1 th/mm3 (0.0-0.4); Hematocrit 29.7 % (39.0-51.0); Hemoglobin 9.6 gm/dL (13.0-17.0); Lymph # (Auto) 0.9 th/mm3 (1.0-4.8); Lymph % (Auto) 10.5 % (9.0-44.0); Mean Corpuscular HGB Conc 32.4 % (32.0-36.0); Mean Corpuscular Hemoglobin 28.9 pg (27.0-34.0); Mean Corpuscular Volume 89.1 fL (80.0-100.0); Mean Platelet Volume 8.4 fL (7.0-11.0); Mono # (Auto) 0.6 th/mm3 (0.0-0.9); Mono % (Auto) 7.2 % (0.0-8.0); Platelet Count 175 th/mm3 (150-450); Red Blood Count 3.33 mil/mm3 (4.50-5.90); Red Cell Distribution Width 14.4 % (11.6-17.2); White Blood Count 8.6 th/mm3 (4.0-11.0)
[2018-03-05 08:04] LABS: Alanine Aminotransferase 122 U/L (12-78); Albumin 1.8 g/dL (3.4-5.0); Anion Gap 5 meq/L (5-15); Blood Urea Nitrogen 10 mg/dL (7-18); Calcium 7.9 mg/dL (8.5-10.1); Carbon Dioxide 29.9 meq/L (21.0-32.0); Chloride 106 meq/L (98-107); Glomerular Filtration Rate Greater Than 89 mL/min (>89); Glucose,Random 215 mg/dL (74-106); Potassium 3.3 meq/L (3.5-5.1); Sodium 141 meq/L (136-145)
[2018-03-05 08:16] LABS: Alkaline Phosphatase 755 U/L (45-117); Aspartate Aminotransferase 94 U/L (15-37); Total Protein 5.7 g/dL (6.4-8.2)
--- NOTE | 2018-03-05 09:47 | MR ---
EXAM DATE: 03/05/2018 8:38 AM EDT AGE/SEX: 77 years / Male INDICATIONS: . Weakness with fever and nausea/vomiting. CLINICAL DATA: This is the patient's subsequent encounter. Patient reports that signs and symptoms h ave been present for 3 days and indicates a pain score of 3/10. MEDICAL/SURGICAL HISTORY: Seizures. Hypertension. Appendectomy. Tonsillectomy. cardiac stent, brain tumor removed COMPARISON: [facility], CT ABDOMEN & PELVIS W CONTRAST, 03/04/2018. . TECHNIQUE: Multiplanar, multisequence images of the abdomen were obtained without contrast including dedicated cholangiographic images. FINDINGS: The gallbladder is abnormal. There is wall thickening and induration of the pericholecystic fat. Ther e is layering sludge within the gallbladder. There is no evidence for biliary ductal dilatation. Live r, kidneys, spleen are unremarkable. Hiatal hernia is present. There is mild increased T2 signal with in the substance of the pancreas with peripancreatic fluid and stranding characteristic of pancreatit is. There is trace fluid in the hepatorenal spaces. CONCLUSION: 1. Abnormal gallbladder with wall thickening, pericholecystic inflammation, and possibly trace peric holecystic fluid, findings concerning for cholecystitis. There is sludge within the gallbladder. 2. Acute pancreatitis. Electronically signed by: Ehsan Canseco MD 03/05/2018 9:46 AM EDT
[2018-03-05] MEDS: Phenytoin Sodium 100 MG Capsule PO SCH (10:14)
[2018-03-05] MEDS: Lisinopril 20 MG Tablet PO SCH ×2 (10:14→21:01)
[2018-03-05] MEDS: Sertraline 100 MG Tablet PO SCH ×2 (10:14→21:01)
[2018-03-05] MEDS: Metoprolol Tartrate 50 MG Tablet PO SCH ×2 (10:14→21:01)
[2018-03-05] MEDS: levETIRAcetam 500 MG Tablet PO SCH ×3 (10:14→17:49)
[2018-03-05] MEDS: Sod Chloride 0.9% Inj 1,000 ML IV.CONT SCH (10:17)
--- NOTE | 2018-03-05 11:36 | P.CONGI ---
History of Present Illness Consult date: 03/05/18 Consult reason: Gallstone pancreatitis Chief complaint: pancreatitis, cholecystitis History of Present Illness: This patient is a 77-year-old male with a history of cerebellar AVMs status post craniectomy for resection of a mass in 2014. Patient also has significant history of seizures, hypertension, coronary artery disease, depression and hyperlipidemia. Surgical history includes appendectomy, coronary artery stent placement and tonsillectomy. Patient is pleasant and cooperative unable to provide history for consultation. Call placed to Pedro Pena patient's son, unable to contact at this time. Patient was brought to [facility] emergency room in [place] on 03/04/2018 for complaints of nausea, diarrhea, vomiting and fever times 1 week. Patient was transferred to [facility] in [place] for further evaluation of possible gallstone pancreatitis. Upon consultation patient denies any present abdominal pain or tenderness. There is no reported further vomiting noted. Our service has been consulted to evaluate patient for possible gallstone pancreatitis. Upon admission to ER WBC 9.5 hemoglobin 10.3 hematocrit 31.0 platelet count 209 INR 1.3 total bilirubin 1.9 AST 130 ALT 154 with an alk phos of 872 and lipase level of 1635. <Rafia Echeverria - Last Filed: 03/05/18 11:38> Review of Systems All other systems reviewed negative except as stated in HPI <Rafia Echeverria - Last Filed: 03/05/18 11:38> PMFSH - History History Provided By: Patient - Medical History Medical History: Medical History (Last Updated 03/05/18 @ 04:37 by CONCEPCIÓN Gray) AVM (arteriovenous malformation) CAD (coronary artery disease) Depression HTN (hypertension) High cholesterol History of brain tumor History of seizure - Surgical History Surgical History: Surgical History (Last Reviewed 03/05/18 @ 04:31 by CONCEPCIÓN Gray) History of appendectomy History of coronary artery stent placement History of tonsillectomy - Family History Family History: Family History (Last Updated 03/05/18 @ 04:37 by CONCEPCIÓN Gray) Mother Family history of heart disease - Tobacco History Smoking Status: Unknown if ever smoked - Alcohol History How Often Do You Have a Drink Containing Alcohol: Never - Substance Use History Substance History: No History of Abuse - Travel History Recent Travel in the [facility] Within the Last 8 Weeks: No Recent Travel Out of the Country Within the Last 8 Weeks: No - Immunization History Tetanus Immunization: Unsure <Rafia Echeverria - Last Filed: 03/05/18 11:38> - Medical History Medical History: Medical History (Last Updated 03/05/18 @ 04:37 by CONCEPCIÓN Gray) AVM (arteriovenous malformation) CAD (coronary artery disease) Depression HTN (hypertension) High cholesterol History of brain tumor History of seizure - Surgical History Surgical History: Surgical History (Last Reviewed 03/05/18 @ 04:31 by CONCEPCIÓN Gray) History of appendectomy History of coronary artery stent placement History of tonsillectomy - Family History Family History: Family History (Last Updated 03/05/18 @ 04:37 by CONCEPCIÓN Gray) Mother Family history of heart disease <Tamra Piña - Last Filed: 03/05/18 15:49> Medications and Allergies Active Medications: Active Medications Bisacodyl (Dulcolax Supp) 10 mg RECTAL DAILY PRN PRN Reason: SEVERE CONSITIPATION Clopidogrel Bisulfate (Plavix) 75 mg PO DAILY [facility] Enalaprilat (Vasotec Inj) 1.25 mg IV.PUSH Q6H PRN PRN Reason: BLOOD PRESSURE MANAGEMENT Sodium Chloride (Ns Inj) 500 mls @ 0 mls/hr IV.SIG BOLUS [facility] Last Infusion: 03/04/18 17:31 Dose: Infused Sodium Chloride (Ns Inj) 500 mls @ 0 mls/hr IV.SIG BOLUS [facility] Last Infusion: 03/04/18 20:08 Dose: Infused Sodium Chloride (Ns Inj) 1,000 mls @ 84 mls/hr IV.CONT .[id number] [facility] Last Admin: 03/05/18 10:17 Dose: 84 mls/hr Lactulose (Lactulose Liq) 30 ml PO DAILY PRN PRN Reason: SEVERE CONSITIPATION Levetiracetam (Keppra) 1,000 mg PO TID [facility] Last Admin: 03/05/18 10:14 Dose: 1,000 mg Lisinopril (Prinivil) 20 mg PO BID [facility] Last Admin: 03/05/18 10:14 Dose: 20 mg Metoprolol Tartrate (Lopressor) 50 mg PO BID [facility] Last Admin: 03/05/18 10:14 Dose: 50 mg Ondansetron HCl (Zofran Inj) 4 mg IV.PUSH Q6H PRN PRN Reason: NAUSEA OR VOMITING Phenytoin Sodium (Dilantin) 100 mg PO DAILY [facility] Last Admin: 03/05/18 10:14 Dose: 100 mg Sennosides (Senokot) 17.2 mg PO Q12H PRN PRN Reason: Moderate Constipation Sertraline HCl (Zoloft) 100 mg PO BID [facility] Last Admin: 03/05/18 10:14 Dose: 100 mg Sodium Chloride (Ns Flush) 2 ml IV.FLUSH PRN PRN PRN Reason: FLUSH AFTER USING IV ACCESS <Rafia Echeverria - Last Filed: 03/05/18 11:38> Active Medications: Active Medications Bisacodyl (Dulcolax Supp) 10 mg RECTAL DAILY PRN PRN Reason: SEVERE CONSITIPATION Clopidogrel Bisulfate (Plavix) 75 mg PO DAILY [facility] Enalaprilat (Vasotec Inj) 1.25 mg IV.PUSH Q6H PRN PRN Reason: BLOOD PRESSURE MANAGEMENT Sodium Chloride (Ns Inj) 500 mls @ 0 mls/hr IV.SIG BOLUS [facility] Last Infusion: 03/04/18 17:31 Dose: Infused Sodium Chloride (Ns Inj) 500 mls @ 0 mls/hr IV.SIG BOLUS [facility] Last Infusion: 03/04/18 20:08 Dose: Infused Sodium Chloride (Ns Inj) 1,000 mls @ 84 mls/hr IV.CONT .[id number] [facility] Last Admin: 03/05/18 10:17 Dose: 84 mls/hr Lactulose (Lactulose Liq) 30 ml PO DAILY PRN PRN Reason: SEVERE CONSITIPATION Levetiracetam (Keppra) 1,000 mg PO TID [facility] Last Admin: 03/05/18 13:04 Dose: 1,000 mg Lisinopril (Prinivil) 20 mg PO BID [facility] Last Admin: 03/05/18 10:14 Dose: 20 mg Metoprolol Tartrate (Lopressor) 50 mg PO BID [facility] Last Admin: 03/05/18 10:14 Dose: 50 mg Ondansetron HCl (Zofran Inj) 4 mg IV.PUSH Q6H PRN PRN Reason: NAUSEA OR VOMITING Phenytoin Sodium (Dilantin) 100 mg PO DAILY [facility] Last Admin: 03/05/18 10:14 Dose: 100 mg Sennosides (Senokot) 17.2 mg PO Q12H PRN PRN Reason: Moderate Constipation Sertraline HCl (Zoloft) 100 mg PO BID [facility] Last Admin: 03/05/18 10:14 Dose: 100 mg Sodium Chloride (Ns Flush) 2 ml IV.FLUSH PRN PRN PRN Reason: FLUSH AFTER USING IV ACCESS <Tamra Piña - Last Filed: 03/05/18 15:49> Allergies Allergy/AdvReac Type Severity Reaction Status Date / Time penicillin G Allergy Severe RASHES Verified 03/04/18 14:00 Sulfa (Sulfonamide Allergy Severe Rash Verified 03/04/18 14:00 Antibiotics) Home Medications Medication Instructions Recorded Confirmed Type atorvastatin 20 mg PO DAILY 03/04/18 03/04/18 History clopidogrel 75 mg PO DAILY 03/04/18 03/04/18 History levetiracetam 1,000 mg PO TID 03/04/18 03/04/18 History lisinopril 20 mg PO BID 03/04/18 03/04/18 History metoprolol tartrate 50 mg PO BID 03/04/18 03/04/18 History phenytoin sodium extended 100 mg PO DAILY 03/04/18 03/04/18 History sertraline 100 mg PO BID 03/04/18 03/04/18 History Exam Vital signs: Vital Signs 03/04/18 13:56 03/04/18 18:00 03/04/18 20:51 Temperature 99.6 F Pulse Rate 70 71 73 Respiratory Rate 18 15 15 Blood Pressure 171/77 H 158/72 H 161/73 H Pulse Oximetry 96 99 98 03/04/18 23:30 03/05/18 00:56 03/05/18 04:00 Temperature 98.3 F 98.0 F Pulse Rate 78 79 84 Respiratory Rate 16 17 18 Blood Pressure 184/76 H 178/82 H 172/79 H Pulse Oximetry 100 96 97 03/05/18 08:00 Temperature 98.7 F Pulse Rate 80 Respiratory Rate 17 Blood Pressure 160/74 H Pulse Oximetry 96 Intake & Output 03/04/18 03/05/18 03/05/18 18:59 06:59 18:59 Intake Total 500 / 500 700 / 700 1000 / 1000 Output Total 925 / 925 Balance 500 / 500 -225 / -225 1000 / 1000 Weight 71.4 kg 72.5 kg Intake: IV 500 / 500 700 / 700 1000 / 1000 NS Inj 1,000 ML @ 84 mls/hr IV. 1000 / 1000 CONT .[id number] [facility] Rx#: [id number] NS Inj 500 ML @ Wide Open IV. 500 / 500 500 / 500 SIG BOLUS [facility] Rx#:[id number] Rocephin Inj 1,000 MG In NS Inj 100 / 100 100 ML @ 200 mls/hr IV.SIG ONCE ONE Rx#:[id number] Flagyl 500 MG Inj 100 ML @ 100 100 / 100 mls/hr IV.SIG ONCE ONE Rx#: [id number] Oral 0 / 0 Output: Urine 925 / 925 Other: Date of Last Bowel Movement 03/05/18 # Bowel Movements 2 - Constitutional no acute distress - Routine HEENT Exam Head: Present: normocephalic - Routine Neck Exam Present: supple - Routine Respiratory Exam Present: CTA bilaterally. Absent: accessory muscle use - Routine Abdominal Exam Present: soft, normoactive bowel sounds. Absent: tenderness, distended, guarding, firm - Routine Extremities Exam Present: full ROM - Routine Skin Exam Present: dry, warm - Routine Neurological Exam Present: alert <Echeverria,Rafia - Last Filed: 03/05/18 11:38> Vital signs: Vital Signs 03/04/18 18:00 03/04/18 20:51 03/04/18 23:30 Temperature Pulse Rate 71 73 78 Respiratory Rate 15 15 16 Blood Pressure 158/72 H 161/73 H 184/76 H Pulse Oximetry 99 98 100 03/05/18 00:56 03/05/18 04:00 03/05/18 08:00 Temperature 98.3 F 98.0 F 98.7 F Pulse Rate 79 84 80 Respiratory Rate 17 18 17 Blood Pressure 178/82 H 172/79 H 160/74 H Pulse Oximetry 96 97 96 03/05/18 12:00 Temperature 98.8 F Pulse Rate 73 Respiratory Rate 14 Blood Pressure 142/76 H Pulse Oximetry 98 Intake & Output 03/04/18 03/05/18 03/05/18 18:59 06:59 18:59 Intake Total 500 / 500 700 / 700 1000 / 1000 Output Total 925 / 925 300 / 300 Balance 500 / 500 -225 / -225 700 / 700 Weight 71.4 kg 72.5 kg Intake: IV 500 / 500 700 / 700 1000 / 1000 NS Inj 1,000 ML @ 84 mls/hr IV. 1000 / 1000 CONT .[id number] [facility] Rx#: [id number] NS Inj 500 ML @ Wide Open IV. 500 / 500 500 / 500 SIG BOLUS [facility] Rx#:[id number] Rocephin Inj 1,000 MG In NS Inj 100 / 100 100 ML @ 200 mls/hr IV.SIG ONCE ONE Rx#:[id number] Flagyl 500 MG Inj 100 ML @ 100 100 / 100 mls/hr IV.SIG ONCE ONE Rx#: [id number] Oral 0 / 0 Output: Urine 925 / 925 Urine Amount (Catheter) 300 / 300 Indwelling Urethral Catheter 300 / 300 Other: Date of Last Bowel Movement 03/05/18 # Bowel Movements 2 <Tamra Piña - Last Filed: 03/05/18 15:49> Results - Labs CBC & Chem 7: 03/05/18 06:00 03/05/18 06:00 Labs: Laboratory Results - last 24 hr 03/04/18 03/04/18 03/04/18 16:17 16:17 16:17 CBC w Diff WBC RBC Hgb Hct MCV MCH MCHC RDW Plt Count MPV Neut % (Auto) Lymph % (Auto) [place] % (Auto) Eos % (Auto) Baso % (Auto) Neut # (Auto) Lymph # (Auto) [place] # (Auto) Eos # (Auto) Baso # (Auto) WBC Differential Diff Scan Differential Comment Platelet Estimate Platelet Morphology PT 13.2 H INR 1.3 APTT 38.5 H Sodium Potassium Chloride Carbon Dioxide Anion Gap BUN Creatinine Estimated GFR POC Glucose Random Glucose Lactic Acid 0.9 Calcium Magnesium Total Bilirubin AST ALT Alkaline Phosphatase Total Creatine Kinase 64 Troponin I 0.02 Total Protein Albumin Lipase Urine Color Urine Clarity Urine pH Ur Specific [place] Urine Protein Urine Glucose (UA) Urine Ketones Urine Occult Blood Urine Nitrate Urine Bilirubin Urine Ictotest Urine Urobilinogen Ur Leukocyte Esterase Urine RBC Urine WBC Urine Bacteria Hyaline Casts Urine Mucus Micro UA Comment Ur Microscopic Review Urine Culture Comments 03/04/18 03/04/18 03/04/18 16:17 16:17 16:30 CBC w Diff Slide review pending WBC 9.5 RBC 3.59 L Hgb 10.3 L Hct 31.0 L MCV 86.4 MCH 28.8 MCHC 33.4 RDW 14.1 Plt Count 209 MPV 8.9 Neut % (Auto) 82.5 H Lymph % (Auto) 9.4 [place] % (Auto) 6.9 Eos % (Auto) 0.9 Baso % (Auto) 0.3 Neut # (Auto) 7.8 H Lymph # (Auto) 0.9 L [place] # (Auto) 0.7 Eos # (Auto) 0.1 Baso # (Auto) 0.0 WBC Differential . Diff Scan Auto diff confirmed Differential Comment . Platelet Estimate Normal Platelet Morphology Normal PT INR APTT Sodium 135 L Potassium 3.2 L Chloride 99 Carbon Dioxide 26.7 Anion Gap 9 BUN 14 Creatinine 0.93 Estimated GFR 79 L POC Glucose Random Glucose 416 H Lactic Acid Calcium 7.9 L Magnesium 2.0 Total Bilirubin 1.9 H AST 130 H ALT 154 H Alkaline Phosphatase 872 H Total Creatine Kinase Troponin I Total Protein 6.4 Albumin 1.9 L Lipase 1635 H Urine Color Dark-yellow Urine Clarity Clear Urine pH 6.5 Ur Specific [place] 1.025 Urine Protein 300 or greater H Urine Glucose (UA) 1000 or greater H Urine Ketones Negative Urine Occult Blood Moderate H Urine Nitrate Negative Urine Bilirubin Moderate H Urine Ictotest Positive H Urine Urobilinogen 1.0 Ur Leukocyte Esterase Negative Urine RBC 4-15 H Urine WBC 0-5 Urine Bacteria Few H Hyaline Casts 0-3 Urine Mucus Few H Micro UA Comment Cath-culture ind Ur Microscopic Review Microscopic reviewed Urine Culture Comments Cath-cult indicated 03/04/18 03/05/18 03/05/18 19:10 06:00 06:00 CBC w Diff WBC 8.6 RBC 3.33 L Hgb 9.6 L Hct 29.7 L MCV 89.1 MCH 28.9 MCHC 32.4 RDW 14.4 Plt Count 175 MPV 8.4 Neut % (Auto) 81.0 H Lymph % (Auto) 10.5 [place] % (Auto) 7.2 Eos % (Auto) 1.0 Baso % (Auto) 0.3 Neut # (Auto) 7.0 Lymph # (Auto) 0.9 L [place] # (Auto) 0.6 Eos # (Auto) 0.1 Baso # (Auto) 0.0 WBC Differential . Diff Scan Differential Comment Auto diff final Platelet Estimate Platelet Morphology PT INR APTT Sodium 141 Potassium 3.3 L Chloride 106 Carbon Dioxide 29.9 Anion Gap 5 BUN 10 Creatinine 0.67 Estimated GFR Greater than 89 POC Glucose 307 H Random Glucose 215 H D Lactic Acid Calcium 7.9 L Magnesium Total Bilirubin 1.5 H AST 94 H ALT 122 H Alkaline Phosphatase 755 H Total Creatine Kinase Troponin I Total Protein 5.7 L D Albumin 1.8 L Lipase Urine Color Urine Clarity Urine pH Ur Specific [place] Urine Protein Urine Glucose (UA) Urine Ketones Urine Occult Blood Urine Nitrate Urine Bilirubin Urine Ictotest Urine Urobilinogen Ur Leukocyte Esterase Urine RBC Urine WBC Urine Bacteria Hyaline Casts Urine Mucus Micro UA Comment Ur Microscopic Review Urine Culture Comments - Imaging Impressions Chest X-Ray 03/04/18 15:28 CONCLUSION: Negative examination. Head CT 03/04/18 15:28 CONCLUSION: 1. No acute findings. . Abdomen/Pelvis CT 03/04/18 16:53 CONCLUSION: 1. Mural thickening of the gallbladder. Questionable mild inflammatory changes around the gallbladder and pancreas. 2. Small hiatal hernia. 3. No bowel obstruction, free fluid or free air. Byrd catheter in bladder. Cholangiopancreatography MRI 03/05/18 00:00 CONCLUSION: 1. Abnormal gallbladder with wall thickening, pericholecystic inflammation, and possibly trace pericholecystic fluid, findings concerning for cholecystitis. There is sludge within the gallbladder. 2. Acute pancreatitis. <Rafia Echeverria - Last Filed: 03/05/18 11:38> - Labs CBC & Chem 7: 03/05/18 06:00 03/05/18 06:00 Labs: Laboratory Results - last 24 hr 03/04/18 03/04/18 03/04/18 16:17 16:17 16:17 CBC w Diff WBC RBC Hgb Hct MCV MCH MCHC RDW Plt Count MPV Neut % (Auto) Lymph % (Auto) [place] % (Auto) Eos % (Auto) Baso % (Auto) Neut # (Auto) Lymph # (Auto) [place] # (Auto) Eos # (Auto) Baso # (Auto) WBC Differential Diff Scan Differential Comment Platelet Estimate Platelet Morphology PT 13.2 H INR 1.3 APTT 38.5 H Sodium Potassium Chloride Carbon Dioxide Anion Gap BUN Creatinine Estimated GFR POC Glucose Random Glucose Lactic Acid 0.9 Calcium Magnesium Total Bilirubin AST ALT Alkaline Phosphatase Total Creatine Kinase 64 Troponin I 0.02 Total Protein Albumin Lipase Urine Color Urine Clarity Urine pH Ur Specific [place] Urine Protein Urine Glucose (UA) Urine Ketones Urine Occult Blood Urine Nitrate Urine Bilirubin Urine Ictotest Urine Urobilinogen Ur Leukocyte Esterase Urine RBC Urine WBC Urine Bacteria Hyaline Casts Urine Mucus Micro UA Comment Ur Microscopic Review Urine Culture Comments 03/04/18 03/04/18 03/04/18 16:17 16:17 16:30 CBC w Diff Slide review pending WBC 9.5 RBC 3.59 L Hgb 10.3 L Hct 31.0 L MCV 86.4 MCH 28.8 MCHC 33.4 RDW 14.1 Plt Count 209 MPV 8.9 Neut % (Auto) 82.5 H Lymph % (Auto) 9.4 [place] % (Auto) 6.9 Eos % (Auto) 0.9 Baso % (Auto) 0.3 Neut # (Auto) 7.8 H Lymph # (Auto) 0.9 L [place] # (Auto) 0.7 Eos # (Auto) 0.1 Baso # (Auto) 0.0 WBC Differential . Diff Scan Auto diff confirmed Differential Comment . Platelet Estimate Normal Platelet Morphology Normal PT INR APTT Sodium 135 L Potassium 3.2 L Chloride 99 Carbon Dioxide 26.7 Anion Gap 9 BUN 14 Creatinine 0.93 Estimated GFR 79 L POC Glucose Random Glucose 416 H Lactic Acid Calcium 7.9 L Magnesium 2.0 Total Bilirubin 1.9 H AST 130 H ALT 154 H Alkaline Phosphatase 872 H Total Creatine Kinase Troponin I Total Protein 6.4 Albumin 1.9 L Lipase 1635 H Urine Color Dark-yellow Urine Clarity Clear Urine pH 6.5 Ur Specific [place] 1.025 Urine Protein 300 or greater H Urine Glucose (UA) 1000 or greater H Urine Ketones Negative Urine Occult Blood Moderate H Urine Nitrate Negative Urine Bilirubin Moderate H Urine Ictotest Positive H Urine Urobilinogen 1.0 Ur Leukocyte Esterase Negative Urine RBC 4-15 H Urine WBC 0-5 Urine Bacteria Few H Hyaline Casts 0-3 Urine Mucus Few H Micro UA Comment Cath-culture ind Ur Microscopic Review Microscopic reviewed Urine Culture Comments Cath-cult indicated 03/04/18 03/05/18 03/05/18 19:10 06:00 06:00 CBC w Diff WBC 8.6 RBC 3.33 L Hgb 9.6 L Hct 29.7 L MCV 89.1 MCH 28.9 MCHC 32.4 RDW 14.4 Plt Count 175 MPV 8.4 Neut % (Auto) 81.0 H Lymph % (Auto) 10.5 [place] % (Auto) 7.2 Eos % (Auto) 1.0 Baso % (Auto) 0.3 Neut # (Auto) 7.0 Lymph # (Auto) 0.9 L [place] # (Auto) 0.6 Eos # (Auto) 0.1 Baso # (Auto) 0.0 WBC Differential . Diff Scan Differential Comment Auto diff final Platelet Estimate Platelet Morphology PT INR APTT Sodium 141 Potassium 3.3 L Chloride 106 Carbon Dioxide 29.9 Anion Gap 5 BUN 10 Creatinine 0.67 Estimated GFR Greater than 89 POC Glucose 307 H Random Glucose 215 H D Lactic Acid Calcium 7.9 L Magnesium Total Bilirubin 1.5 H AST 94 H ALT 122 H Alkaline Phosphatase 755 H Total Creatine Kinase Troponin I Total Protein 5.7 L D Albumin 1.8 L Lipase Urine Color Urine Clarity Urine pH Ur Specific [place] Urine Protein Urine Glucose (UA) Urine Ketones Urine Occult Blood Urine Nitrate Urine Bilirubin Urine Ictotest Urine Urobilinogen Ur Leukocyte Esterase Urine RBC Urine WBC Urine Bacteria Hyaline Casts Urine Mucus Micro UA Comment Ur Microscopic Review Urine Culture Comments - Imaging Impressions Chest X-Ray 03/04/18 15:28 CONCLUSION: Negative examination. Head CT 03/04/18 15:28 CONCLUSION: 1. No acute findings. . Abdomen/Pelvis CT 03/04/18 16:53 CONCLUSION: 1. Mural thickening of the gallbladder. Questionable mild inflammatory changes around the gallbladder and pancreas. 2. Small hiatal hernia. 3. No bowel obstruction, free fluid or free air. Byrd catheter in bladder. Cholangiopancreatography MRI 03/05/18 00:00 CONCLUSION: 1. Abnormal gallbladder with wall thickening, pericholecystic inflammation, and possibly trace pericholecystic fluid, findings concerning for cholecystitis. There is sludge within the gallbladder. 2. Acute pancreatitis. <Tamra Piña - Last Filed: 03/05/18 15:49> Assessment and Plan (1) Gallstone pancreatitis Status: Acute Code(s): K85.10 - Biliary acute pancreatitis without necrosis or infection - Plan This patient is a 77-year-old male with a history of cerebellar AVMs status post craniectomy for resection of a mass in 2014. Patient also has significant history of seizures, hypertension, coronary artery disease, depression and hyperlipidemia. Surgical history includes appendectomy, coronary artery stent placement and tonsillectomy. Patient is pleasant and cooperative unable to provide history for consultation. Call placed to Pedro Pena patient's son, unable to contact at this time. Patient was brought to [facility] emergency room in [place] on 03/04/2018 for complaints of nausea, diarrhea, vomiting and fever times 1 week. Patient was transferred to [facility] in [place] for further evaluation of possible gallstone pancreatitis. Upon consultation patient denies any present abdominal pain or tenderness. There is no reported further vomiting noted. Our service has been consulted to evaluate patient for possible gallstone pancreatitis. Upon admission to ER WBC 9.5 hemoglobin 10.3 hematocrit 31.0 platelet count 209 INR 1.3 total bilirubin 1.9 AST 130 ALT 154 with an alk phos of 872 and lipase level of 1635. Gallstone pancreatitis Patient transferred to [facility] ER from [place] to ER due to nausea, vomiting, diarrhea and fever for 6 days. (03/04) CT abdomen and pelvis revealed --> There is minimal basilar atelectasis in the lungs. Small hiatal hernia. No acute findings in the liver, spleen, adrenals, kidneys. There is mural thickening of the gallbladder with questionable mild pericholecystic inflammatory changes. There is also some mild infiltration of fat around the pancreas most characteristic of a mild pancreatitis. No free fluid or free air. No bowel obstruction. Byrd catheter present in bladder. Mural thickening of the gallbladder. Questionable mild inflammatory changes around the gallbladder and pancreas. Small hiatal hernia. No bowel obstruction, free fluid or free air. Byrd catheter in bladder. 03/05/2018 MRCP findings as follows--> Abnormal gallbladder with wall thickening , pericholecystic inflammation, and possibly trace pericholecystic fluid, findings concerning for cholecystitis. There is sludge within the gallbladder. Acute pancreatitis. Hemoglobin 9.6 hematocrit 29.7 total bilirubin 1.5 AST 94 ALT 122 alk phos 755. Based on the above findings we will await general surgery evaluation and recommendations. Plan -N.p.o. -General surgery consulted -Continue to monitor labs -Analgesia and antiemetics as per attending -Supportive care -Further recommendations to follow based on patient status and findings This patient has been seen by myself and Dr. Piña and this note is written on her behalf - Attending Attestation Dr. Piña <Rafia Echeverria - Last Filed: 03/05/18 11:38> (1) Gallstone pancreatitis Status: Acute Code(s): K85.10 - Biliary acute pancreatitis without necrosis or infection - Attending Attestation seen, examined agree with above surgical consult appreciated mrcp noted-no cbd stone , if worsening lfts may need ercp <Tamra Piña - Last Filed: 03/05/18 15:49>
--- NOTE | 2018-03-05 12:47 | P.PNADD ---
Addendum to Inpatient Note Reason for Addendum: Additional Documentation Additional information: Patient seen and examined. Demented, difficult to obtain any information. No nausea, no vomiting, no abdominal pain. Went for MRCP. Family at bedside. Patient resides at home with , he is wheelchair-bound and requires assistance with all ADLs. request full code at this time. Updated on status. Dr. Martinez evaluated this morning, based on MRCP, possible surgery on Thursday.
--- NOTE | 2018-03-05 13:46 | MB ---
cc: Mayo Martinez MD DATE: 03/05/2018 REASON FOR CONSULTATION: Gallstone pancreatitis. HISTORY OF PRESENT ILLNESS: Mr. Pena is a pleasant 77-year-old demented gentleman who presented to the emergency department last evening with complaints of abdominal pain, nausea, vomiting, diarrhea. Apparently, this started the day before. He was brought to the emergency department in [place] for these symptoms. Workup revealed essentially gallstone pancreatitis. He was transferred to [facility] for further workup and care. The patient is demented and does not answer all questions appropriately. I asked him if he had any previous gallbladder problems and he said no. I asked him if he had any previous pancreatitis and he said no. Overall, the majority of his medical history was obtained from the medical record as he is unable to provide the details of his medical history. PAST MEDICAL HISTORY: Includes coronary artery disease, depression, brain tumor, history of a seizure disorder. PAST SURGICAL HISTORY: Includes appendectomy, coronary artery stent placement. MEDICATIONS: His medication list is extensive, but most importantly includes Plavix. ALLERGIES: HE HAS ALLERGIES TO PENICILLIN AND SULFA. SOCIAL HISTORY: He denies alcohol or cigarette use. REVIEW OF SYSTEMS: Unobtainable secondary to confusion and dementia. PHYSICAL EXAMINATION: VITAL SIGNS: Temperature 98, pulse 80, blood pressure 190/80, respiratory rate 20. GENERAL: This is a pleasant elderly gentleman watching TV who appears to be only oriented to himself. HEENT: Sclerae are white. Oropharynx is clear and moist. NECK: Supple. No masses. LUNGS: Clear to auscultation bilaterally. HEART: S1, S2. No murmur. ABDOMEN: Soft, nontender, nondistended. No rebound or guarding. Negative Ponce sign. No abdominal wall hernias. EXTREMITIES: Free range of motion x 4. NEUROLOGIC: Alert and oriented x 3. LABORATORY DATA: White blood cell count 9, hemoglobin 10, platelet count 209. INR is 1.3. Electrolytes are within normal limits except for hypokalemia at 3.2. He has an elevated glucose at 400. He has an elevated total bilirubin of 1.9, AST 130, ALT 150, alkaline phosphatase 872 and lipase 1635. IMAGING DATA: The patient had a CT scan of the abdomen and pelvis which shows a little pancreatitis, mild cholecystitis. He had an MRCP which shows gallbladder wall thickening, pericholecystic inflammation with some sludge. Also, acute pancreatitis with inflammation and fluid around the pancreas. IMPRESSION: Probable gallstone pancreatitis. PLAN: At this point, I have recommended observation. The patient needs medical management with antibiotic therapy. We will need to await resolution of his pancreatitis as well as stopping his anticoagulation before considering surgical intervention. Would consider elective cholecystectomy early next week if the patient's clinical condition improves and he is off his anticoagulation for several days. We will follow up over the weekend to ensure that the patient's liver functions and pancreatic enzymes return to normal. At that point, if he is clinically doing well, we will schedule him for a cholecystectomy. If the patient develops septic cholecystitis, he may require a cholecystostomy tube. MD ANGELLA Jacob/abigail , 12:49 PM , 12:57 PM
[2018-03-06] MEDS: Sod Chloride 0.9% Inj 1,000 ML IV.CONT SCH ×2 (00:41→11:28)
[2018-03-06 08:44] LABS: Hematocrit 28.2 % (39.0-51.0); Hemoglobin 9.4 gm/dL (13.0-17.0); Mean Corpuscular HGB Conc 33.2 % (32.0-36.0); Mean Corpuscular Hemoglobin 29.5 pg (27.0-34.0); Mean Corpuscular Volume 88.9 fL (80.0-100.0); Mean Platelet Volume 8.3 fL (7.0-11.0); Platelet Count 194 th/mm3 (150-450); Red Blood Count 3.18 mil/mm3 (4.50-5.90); Red Cell Distribution Width 14.5 % (11.6-17.2); White Blood Count 10.5 th/mm3 (4.0-11.0)
[2018-03-06] MEDS: levETIRAcetam 500 MG Tablet PO SCH ×3 (08:49→17:10)
[2018-03-06] MEDS: Metoprolol Tartrate 50 MG Tablet PO SCH ×2 (08:50→20:31)
[2018-03-06] MEDS: Sertraline 100 MG Tablet PO SCH ×2 (08:50→20:31)
[2018-03-06] MEDS: Phenytoin Sodium 100 MG Capsule PO SCH (08:50)
[2018-03-06] MEDS: Lisinopril 20 MG Tablet PO SCH ×2 (08:50→20:30)
[2018-03-06 09:08] LABS: Alanine Aminotransferase 110 U/L (12-78); Albumin 1.7 g/dL (3.4-5.0); Anion Gap 10 meq/L (5-15); Aspartate Aminotransferase 93 U/L (15-37); Blood Urea Nitrogen 8 mg/dL (7-18); Calcium 7.7 mg/dL (8.5-10.1); Carbon Dioxide 24.8 meq/L (21.0-32.0); Chloride 107 meq/L (98-107); Glomerular Filtration Rate Greater Than 89 mL/min (>89); Glucose,Random 145 mg/dL (74-106); Lipase 503 U/L (73-393); Sodium 142 meq/L (136-145)
[2018-03-06 09:12] LABS: Alkaline Phosphatase 892 U/L (45-117); Total Protein 5.7 g/dL (6.4-8.2)
[2018-03-06 09:14] LABS: Potassium 2.9 meq/L (3.5-5.1)
[2018-03-06] MEDS: Piperacil/Tazo 3.375 GM Premix 50 ML IV.SIG SCH ×3 (09:27→20:31)
[2018-03-06] MEDS ORDERED: Potassium Chlor 20 mEq Premix 20 MEQ/100 ML PIGGYBACK IV.SIG ONE (10:39)
[2018-03-06] MEDS ORDERED: Potassium Chloride 25 MEQ Effervescent Tablet PO ONE (10:40)
--- NOTE | 2018-03-06 11:54 | P.PN ---
Subjective Interval history: Follow-up for suspected gallstones/cholecystitis-patient awake, oriented to self. Demented, pleasant. No abdominal pain, just vomited. Fever last night, 100.1. Difficult to obtain ROS. No family at bedside. Physical Exam Vital signs: Vital Signs 03/05/18 12:00 03/05/18 16:00 03/05/18 20:00 Temperature 98.8 F 99.6 F 100.1 F H Pulse Rate 73 73 82 Respiratory Rate 14 15 16 Blood Pressure 142/76 H 160/76 H 190/72 H Pulse Oximetry 98 96 95 03/06/18 00:00 03/06/18 04:00 03/06/18 08:00 Temperature 100.2 F H 98.7 F 98.8 F Pulse Rate 68 74 81 Respiratory Rate 19 18 20 Blood Pressure 190/82 H 182/80 H 192/82 H Pulse Oximetry 94 L 94 L 99 03/06/18 09:35 Temperature Pulse Rate Respiratory Rate Blood Pressure 179/81 H Pulse Oximetry Intake & Output 03/05/18 03/06/18 03/06/18 18:59 06:59 18:59 Intake Total 1000 / 1000 1100 / 1100 150 / 150 Output Total 300 / 300 450 / 450 Balance 700 / 700 650 / 650 150 / 150 Weight 83.2 kg Intake: IV 1000 / 1000 1000 / 1000 150 / 150 NS Inj 1,000 ML @ 84 mls/hr IV. 1000 / 1000 1000 / 1000 CONT .[id number] GINA Rx#: [id number] Zosyn 3.375 GM Premix 50 ML @ 50 / 50 100 mls/hr IV.SIG Q6H GINA Rx#: [id number] Flagyl 500 MG Inj 100 ML @ 100 100 / 100 mls/hr IV.SIG Q8H GINA Rx#: [id number] Oral 100 / 100 Output: Urine Amount (Catheter) 300 / 300 450 / 450 Indwelling Urethral Catheter 300 / 300 450 / 450 Other: # Voids 3 Date of Last Bowel Movement 03/05/18 # Bowel Movements 1 Narrative: GENERAL: This is an elderly male patient, in no apparent distress. SKIN: No rashes or lesions. Cool and dry. Slight jaundice noted. HEAD: Normocephalic. EYES: No injection or drainage. ENT: Nose without bleeding, purulent drainage. NECK: Trachea midline. No JVD. CARDIOVASCULAR: Regular rate and rhythm without murmurs, gallops, or rubs. RESPIRATORY: Clear to auscultation. Breath sounds equal bilaterally. No wheezes , rales, or rhonchi. GASTROINTESTINAL: Normal bowel sounds. Abdomen soft, non-tender, nondistended. No guarding. MUSCULOSKELETAL: Extremities without clubbing, cyanosis. NEUROLOGICAL: Patient awake, oriented to self. At times jumbled, difficult to understand. Follow simple commands. Pleasantly demented. . - Urinary Catheter Management Indwelling Urethral Catheter Cath placed during this visit: yes, but has since been removed by the nurse Reason for continuing: Continue criteria not met Insertion date: 03/04/18 Insertion time: 16:20 Removal date: 03/05/18 Removal time: 11:14 Results - Labs CBC & Chem 7: 03/06/18 07:32 03/06/18 07:32 Laboratory Results - last 24 hr 03/06/18 03/06/18 07:32 07:32 WBC 10.5 RBC 3.18 L Hgb 9.4 L Hct 28.2 L MCV 88.9 MCH 29.5 MCHC 33.2 RDW 14.5 Plt Count 194 MPV 8.3 Sodium 142 Potassium 2.9 L* Chloride 107 Carbon Dioxide 24.8 Anion Gap 10 BUN 8 Creatinine 0.49 L Estimated GFR Greater than 89 Random Glucose 145 H Calcium 7.7 L Total Bilirubin 1.3 H AST 93 H ALT 110 H Alkaline Phosphatase 892 H Total Protein 5.7 L Albumin 1.7 L Lipase 503 H Microbiology 03/04/18 16:30 Catheterized Urine Urine Culture - Preliminary No growth in 24 hours Assessment and Plan - Assessment (1) Gallstone pancreatitis Code(s): K85.10 - Biliary acute pancreatitis without necrosis or infection Status: Acute - Plan Mr. Pena is a 77 y/o male with a history of cerebellar AVM s/p right suboccipital craniectomy for resection of cerebellar mass on 03/30/15, seizures , hypertension, CAD, depression, and hyperlipidemia who presented to the ER in [place] for nausea, diarrhea, vomiting, and fevers for 6 days. The patient was found to have findings suspicious for gallstone pancreatitis and was transferred to [facility] under the hospitalist service for further evaluation and management. Suspected gallstone pancreatitis -Abdomen/pelvis CT shows mural thickening of gallbladder, mild inflammatory changes around gallbladder and pancreas, no bowel obstruction -MRCP 03/05/2018, findings normal gallbladder with wall thickening, pericholecystic inflammation, possibly trace pericholecystic fluids, findings concerning for cholecystitis. There is large within the gallbladder. Acute pancreatitis -Lipase trending down, 503. T bili 1.3. AST 93, ALT 110, alkaline phosphatase 892. -Appreciate GI input. -N.p.o. -Change IV fluids to D5 and half of 50 Zofran 4 milligrams IV push every 6 hours as needed for nausea or vomiting -Patient will be started on Zosyn 3.3751 g IV every 6 as well as Flagyl 500 mg IV every 8 -Repeat CMP and lipase in the morning -We will wait for further surgical recommendations Seizures -Continue home antiepileptics Keppra and Dilantin when able to take p.o. Hypokalemia -Potassium 2.9 today, IV and p.o. History of coronary artery disease with stents -Continue metoprolol -hold Plavix for now History of hypertension -Continue lisinopril -Blood pressure noted elevated, cont. Vasotec PRN -Will add Hydralazine 10 mg po TID Will add heparin 5000 units subcu for DVT prophylaxis Repeat labs in the morning D/W patient's --would like to avoid surgery if at all possible, she prefers conservative management at this time. Code Status: Full code d/w yesterday, full code for now. She is POA Discussed Condition With: RN, pt. Discharge Planning: Not ready for dc yet.
[2018-03-06] MEDS: hydrALAZINE 10 MG Tablet PO SCH ×2 (14:11→18:53)
[2018-03-06] MEDS ORDERED: Dextrose 5%/NaCl 0.45% Inj 1,000 ML IV.CONT SCH (15:00)
--- NOTE | 2018-03-06 15:10 | P.PNGI ---
Subjective Interval history: Resting in the bed feels like he is doing somewhat better at his bedside denies any nausea vomiting or abdominal pain. No obvious bleeding noted hemoglobin 9.4 monitoring bilirubin and LFTs which do show gradual trending down Physical Exam Vital signs: Vital Signs 03/05/18 16:00 03/05/18 20:00 03/06/18 00:00 Temperature 99.6 F 100.1 F H 100.2 F H Pulse Rate 73 82 68 Respiratory Rate 15 16 19 Blood Pressure 160/76 H 190/72 H 190/82 H Pulse Oximetry 96 95 94 L 03/06/18 04:00 03/06/18 08:00 03/06/18 09:35 Temperature 98.7 F 98.8 F Pulse Rate 74 81 Respiratory Rate 18 20 Blood Pressure 182/80 H 192/82 H 179/81 H Pulse Oximetry 94 L 99 Intake & Output 03/05/18 03/06/18 03/06/18 18:59 06:59 18:59 Intake Total 1000 / 1000 1100 / 1100 150 / 150 Output Total 300 / 300 450 / 450 Balance 700 / 700 650 / 650 150 / 150 Weight 83.2 kg Intake: IV 1000 / 1000 1000 / 1000 150 / 150 NS Inj 1,000 ML @ 84 mls/hr IV. 1000 / 1000 1000 / 1000 CONT .[id number] GINA Rx#: [id number] Zosyn 3.375 GM Premix 50 ML @ 50 / 50 100 mls/hr IV.SIG Q6H GINA Rx#: [id number] Flagyl 500 MG Inj 100 ML @ 100 100 / 100 mls/hr IV.SIG Q8H GINA Rx#: [id number] Oral 100 / 100 Output: Urine Amount (Catheter) 300 / 300 450 / 450 Indwelling Urethral Catheter 300 / 300 450 / 450 Other: # Voids 3 Date of Last Bowel Movement 03/05/18 # Bowel Movements 1 - Constitutional no acute distress, cooperative (Answer simple questions but does have dementia, poor historian) - Routine HEENT Exam Head: Present: normocephalic (Pale) ENT: Present: mucous membranes dry - Routine Neck Exam Present: supple - Routine Respiratory Exam Present: accessory muscle use (Even, unlabored at rest) - Routine Cardiovascular Exam Present: S1, S2 - Routine Abdominal Exam Present: normoactive bowel sounds (Soft bowel sounds round nontender nondistended) - Urinary Catheter Management Indwelling Urethral Catheter Cath placed during this visit: yes, but has since been removed by the nurse Reason for continuing: Continue criteria not met Insertion date: 03/04/18 Insertion time: 16:20 Removal date: 03/05/18 Removal time: 11:14 Results - Labs CBC & Chem 7: 03/06/18 07:32 03/06/18 07:32 Laboratory Results - last 24 hr 03/06/18 03/06/18 07:32 07:32 WBC 10.5 RBC 3.18 L Hgb 9.4 L Hct 28.2 L MCV 88.9 MCH 29.5 MCHC 33.2 RDW 14.5 Plt Count 194 MPV 8.3 Sodium 142 Potassium 2.9 L* Chloride 107 Carbon Dioxide 24.8 Anion Gap 10 BUN 8 Creatinine 0.49 L Estimated GFR Greater than 89 Random Glucose 145 H Calcium 7.7 L Total Bilirubin 1.3 H AST 93 H ALT 110 H Alkaline Phosphatase 892 H Total Protein 5.7 L Albumin 1.7 L Lipase 503 H Microbiology 03/04/18 16:30 Catheterized Urine Urine Culture - Preliminary No growth in 24 hours Assessment and Plan (1) Gallstone pancreatitis Status: Acute Code(s): K85.10 - Biliary acute pancreatitis without necrosis or infection - Plan This patient is a 77-year-old male with a history of cerebellar AVMs status post craniectomy for resection of a mass in 2014. Patient also has significant history of seizures, hypertension, coronary artery disease, depression and hyperlipidemia. Surgical history includes appendectomy, coronary artery stent placement and tonsillectomy. Patient is pleasant and cooperative unable to provide history for consultation. Call placed to Pedro Pena patient's son, unable to contact at this time. Patient was brought to [place] emergency room in [place] on 03/04/2018 for complaints of nausea, diarrhea, vomiting and fever times 1 week. Patient was transferred to [facility] in [place] for further evaluation of possible gallstone pancreatitis. Upon consultation patient denies any present abdominal pain or tenderness. There is no reported further vomiting noted. Our service has been consulted to evaluate patient for possible gallstone pancreatitis. Upon admission to ER WBC 9.5 hemoglobin 10.3 hematocrit 31.0 platelet count 209 INR 1.3 total bilirubin 1.9 AST 130 ALT 154 with an alk phos of 872 and lipase level of 1635. Gallstone pancreatitis Patient transferred to [facility] ER from [place] to ER due to nausea, vomiting, diarrhea and fever for 6 days. (03/04) CT abdomen and pelvis revealed --> There is minimal basilar atelectasis in the lungs. Small hiatal hernia. No acute findings in the liver, spleen, adrenals, kidneys. There is mural thickening of the gallbladder with questionable mild pericholecystic inflammatory changes. There is also some mild infiltration of fat around the pancreas most characteristic of a mild pancreatitis. No free fluid or free air. No bowel obstruction. Byrd catheter present in bladder. Mural thickening of the gallbladder. Questionable mild inflammatory changes around the gallbladder and pancreas. Small hiatal hernia. No bowel obstruction, free fluid or free air. Byrd catheter in bladder. 03/05/2018 MRCP findings as follows--> Abnormal gallbladder with wall thickening , pericholecystic inflammation, and possibly trace pericholecystic fluid, findings concerning for cholecystitis. There is sludge within the gallbladder. Acute pancreatitis. Hemoglobin 9.6 hematocrit 29.7 total bilirubin 1.5 AST 94 ALT 122 alk phos 755. Based on the above findings we will await general surgery evaluation and recommendations. 03/06/2018 shows gradual trend down of bilirubin and LFTs. Bilirubin now 1.3, AST 93, ALT 110, hemoglobin 10.4. Byrd catheter still notes dark orange urine but adequate amounts. Patient is beginning to ask for liquids and feel appetite. We will trial clear liquids slow amounts as long as there is no nausea vomiting or increasing abdominal pain. Maintain IV hydration for now and if patient continues to improve may DC IV fluids tomorrow. Acute pancreatitis slow gradual improvement, first episode, check CA-19-9, rule out concern for cancer. Probably related to gallbladder sludge and inflammation. Will need follow-up outpatient with general surgery for possible cholecystectomy Plan Diet clear liquids slowly monitor for any acute nausea vomiting or abdominal pain Lab CA 199 Continue to monitor bilirubin as well as LFTs for trending down, consider ER CP if labs start to trend back up or any acute change in patient's condition noted IV fluids hydration, Byrd catheter for accurate I&O at least for the next 24 hours Pain meds per attending Supportive care, consider outpatient follow-up with general surgery for cholecystectomy Further recommendations to follow Patient was seen per myself and Dr. Arrieta, note was written on his behalf -
--- NOTE | 2018-03-06 19:40 | P.PN ---
Subjective Interval history: No further abdominal pain. Patient and inquiring about eating and surgery. Physical Exam Vital signs: Vital Signs 03/05/18 20:00 03/06/18 00:00 03/06/18 04:00 Temperature 100.1 F H 100.2 F H 98.7 F Pulse Rate 82 68 74 Respiratory Rate 16 19 18 Blood Pressure 190/72 H 190/82 H 182/80 H Pulse Oximetry 95 94 L 94 L 03/06/18 08:00 03/06/18 09:35 03/06/18 12:00 Temperature 98.8 F 98.8 F Pulse Rate 81 67 Respiratory Rate 20 20 Blood Pressure 192/82 H 179/81 H 190/85 H Pulse Oximetry 99 97 03/06/18 16:00 Temperature 98.5 F Pulse Rate Respiratory Rate 16 Blood Pressure 198/84 H Pulse Oximetry Intake & Output 03/06/18 03/06/18 03/07/18 06:59 18:59 06:59 Intake Total 1100 / 1100 1400 / 1400 Output Total 450 / 450 Balance 650 / 650 1400 / 1400 Weight 83.2 kg Intake: IV 1000 / 1000 1400 / 1400 NS Inj 1,000 ML @ 84 mls/hr IV. 1000 / 1000 1000 / 1000 CONT .[id number] GINA Rx#: [id number] Zosyn 3.375 GM Premix 50 ML @ 100 / 100 100 mls/hr IV.SIG Q6H GINA Rx#: [id number] KCl 20 mEq Premix Inj 20 meq In 100 / 100 100 ml @ 50 mls/hr IV.SIG ONCE ONE Rx#:[id number] Flagyl 500 MG Inj 100 ML @ 100 200 / 200 mls/hr IV.SIG Q8H GINA Rx#: [id number] Oral 100 / 100 Output: Urine Amount (Catheter) 450 / 450 Indwelling Urethral Catheter 450 / 450 - Routine Abdominal Exam Present: soft Comments: No tenderness. - Urinary Catheter Management Indwelling Urethral Catheter Cath placed during this visit: yes, but has since been removed by the nurse Reason for continuing: Continue criteria not met Insertion date: 03/04/18 Insertion time: 16:20 Removal date: 03/05/18 Removal time: 11:14 Results - Labs CBC & Chem 7: 03/06/18 07:32 03/06/18 07:32 Laboratory Results - last 24 hr 03/06/18 03/06/18 07:32 07:32 WBC 10.5 RBC 3.18 L Hgb 9.4 L Hct 28.2 L MCV 88.9 MCH 29.5 MCHC 33.2 RDW 14.5 Plt Count 194 MPV 8.3 Sodium 142 Potassium 2.9 L* Chloride 107 Carbon Dioxide 24.8 Anion Gap 10 BUN 8 Creatinine 0.49 L Estimated GFR Greater than 89 Random Glucose 145 H Calcium 7.7 L Total Bilirubin 1.3 H AST 93 H ALT 110 H Alkaline Phosphatase 892 H Total Protein 5.7 L Albumin 1.7 L Lipase 503 H Microbiology 03/04/18 16:30 Catheterized Urine Urine Culture - Preliminary No growth in 24 hours Assessment and Plan - Assessment (1) Gallstone pancreatitis Code(s): K85.10 - Biliary acute pancreatitis without necrosis or infection Status: Acute Plan: Laparoscopic cholecystectomy with possible IOC on Thursday or Thursday. Liquid diet started. - Plan Discussed Condition With: Patient - Attending Attestation I attest that I had a [id number] encounter with the patient on the same day, and personally performed and documented my assessment and findings in the medical record. The following services were provided during this hospital visit: Chart data review, vital sign assessments/reviewing monitor data Review of consultation notes if present Medication orders/review and/or management Ordering and/or reviewing lab tests Ordering and/or interpreting/reviewing x-rays and/or diagnostic studies Care of the patient and discussion of the patient with the care team Documentation time To help prompt me to consider important information that might be impacting today's encounter and assessment, Information from prior notes written by myself or my colleagues may have been "brought forward/copy and pasted" into today's note.
[2018-03-06] MEDS: Heparin - SQ 10,000 UNITS/ML Vial SQ SCH (20:31)
[2018-03-07] MEDS: Piperacil/Tazo 3.375 GM Premix 50 ML IV.SIG SCH ×4 (02:17→20:00)
--- NOTE | 2018-03-07 05:23 | P.PNADD ---
Addendum to Inpatient Note Additional information: S: Mohini called at 4:58, residents responded. This is a 77-year-old male with a past medical History of resection of cerebellar mass in 2015, CAD, depression and hyperlipidemia, who was found to be in a generalized tonic seizure that lasted for 5 minutes. Patient was unconscious, no bladder or bowel incontinence. Unsure if patient bit his tongue during the event. 1 mg of Ativan was given at that time. Patient seizure resolved was found to be postictal upon residents arrival. He is on Keppra 1000 mg p.o. 3 times daily and Dilantin 100 mg p.o. daily. Per medications review, medications have been given on time and daily since admission. No episodes of seizures has occurred since admission. Keppra and Dilantin level has not been checked since admission. In addition patient was found to be hypokalemic yesterday at 3.0, was replaced with 20 mEq of K-Lyte p.o. and 20 mEq of KCl IV. Repeat BMP to monitor status not present. Patient was admitted for pancreatitis, was being followed by surgery for possible cholecystectomy, Currently on a liquid diet. Has had some nausea and vomiting during his admission. O: Vital signs: Heart rate 81, pulse ox 96 on room air, blood pressure: 189/81. General: Elderly appearing man, laying in bed, postictal, not responsive to light touch. Eyes opening to sternal rub. HEENT: Eyes mydriatic, reactive to light. Unable to open patient's mouth to appreciate oral mucosa. CVS: Regular rate and rhythm, grade 3 out of 6 systolic murmur appreciated on the left sternal border, no radiation. 2+ radial pulses appreciated. Respiratory: Anterior auscultation, clear bilaterally. Abdomen: Soft, nondistended, bowel sounds present. No tenderness to palpation. Extremities: No pedal edema bilaterally, warm and well perfused. A/P: 77-year-old male with past medical history of craniectomy in 2015, seizures , on Keppra and Dilantin, admitted for pancreatitis with questionable cholecystectomy. Toneylianna called for witnessed generalized tonic seizure for 5 mins. Patient is post ictal s/p 1 mg of ativan. -EKG ordered. Rule out any cardiac abnormalities. Follow-up -CMP and magnesium ordered to rule out any electrolyte abnormalities. -Keppra and Dilantin level ordered. Follow-up -CK ordered due to seizure. Follow-up -CBC ordered. Follow-up -Serum glucose: 207. -Blood pressures high at 189/81, Vasotec as needed. -Ativan 1 mg as needed. -Consult to neurology. Appreciate recommendations. :
[2018-03-07 06:02] LABS: Baso % (Auto) 0.3 % (0.0-2.0); Eos # (Auto) 0.2 th/mm3 (0.0-0.4); Hematocrit 28.7 % (39.0-51.0); Hemoglobin 9.5 gm/dL (13.0-17.0); Lymph # (Auto) 0.8 th/mm3 (1.0-4.8); Lymph % (Auto) 10.2 % (9.0-44.0); Mean Corpuscular Hemoglobin 29.4 pg (27.0-34.0); Mean Corpuscular Volume 89.1 fL (80.0-100.0); Mono # (Auto) 0.5 th/mm3 (0.0-0.9); Mono % (Auto) 7.3 % (0.0-8.0); Neut # (Auto) 5.9 th/mm3 (1.8-7.7); Neut % (Auto) 80.2 % (16.0-70.0); Platelet Count 200 th/mm3 (150-450); Red Blood Count 3.22 mil/mm3 (4.50-5.90); Red Cell Distribution Width 14.2 % (11.6-17.2); White Blood Count 7.4 th/mm3 (4.0-11.0)
[2018-03-07 06:39] LABS: Platelet Estimate Normal (Normal); Platelet Morphology Normal (Normal)
[2018-03-07 07:01] LABS: Alanine Aminotransferase 100 U/L (12-78); Albumin 1.7 g/dL (3.4-5.0); Alkaline Phosphatase 950 U/L (45-117); Anion Gap 11 meq/L (5-15); Aspartate Aminotransferase 95 U/L (15-37); Blood Urea Nitrogen 8 mg/dL (7-18); Calcium 7.5 mg/dL (8.5-10.1); Carbon Dioxide 23.2 meq/L (21.0-32.0); Chloride 107 meq/L (98-107); Glomerular Filtration Rate Greater Than 89 mL/min (>89); Glucose,Random 225 mg/dL (74-106); Magnesium 1.7 mg/dL (1.5-2.5); Sodium 141 meq/L (136-145); Total Protein 5.6 g/dL (6.4-8.2)
[2018-03-07 07:13] LABS: Creatine Kinase 40 U/L (39-308); Potassium 2.9 meq/L (3.5-5.1)
[2018-03-07] MEDS: Sertraline 100 MG Tablet PO SCH ×2 (08:09→20:00)
[2018-03-07] MEDS: hydrALAZINE 10 MG Tablet PO SCH ×3 (08:09→17:56)
[2018-03-07] MEDS: Metoprolol Tartrate 50 MG Tablet PO SCH ×2 (08:09→20:00)
[2018-03-07] MEDS: Potassium Chlor 10 mEq Premix 10 MEQ/100 ML PIGGYBACK IV.SIG SCH ×3 (08:09→13:14)
[2018-03-07] MEDS: levETIRAcetam 500 MG Tablet PO SCH (08:10)
[2018-03-07] MEDS: Heparin - SQ 10,000 UNITS/ML Vial SQ SCH ×2 (08:10→20:00)
[2018-03-07] MEDS: Phenytoin Sodium 100 MG Capsule PO SCH (08:10)
[2018-03-07 09:13] LABS: Hematocrit 27.7 % (39.0-51.0); Hemoglobin 9.4 gm/dL (13.0-17.0); Mean Corpuscular HGB Conc 33.8 % (32.0-36.0); Mean Corpuscular Hemoglobin 29.9 pg (27.0-34.0); Mean Corpuscular Volume 88.5 fL (80.0-100.0); Mean Platelet Volume 8.5 fL (7.0-11.0); Platelet Count 196 th/mm3 (150-450); Red Blood Count 3.13 mil/mm3 (4.50-5.90); Red Cell Distribution Width 14.5 % (11.6-17.2); White Blood Count 7.6 th/mm3 (4.0-11.0)
[2018-03-07 09:49] LABS: Alanine Aminotransferase 101 U/L (12-78); Albumin 1.7 g/dL (3.4-5.0); Alkaline Phosphatase 927 U/L (45-117); Anion Gap 8 meq/L (5-15); Aspartate Aminotransferase 88 U/L (15-37); Blood Urea Nitrogen 8 mg/dL (7-18); Calcium 7.7 mg/dL (8.5-10.1); Carbon Dioxide 26.6 meq/L (21.0-32.0); Chloride 105 meq/L (98-107); Glomerular Filtration Rate Greater Than 89 mL/min (>89); Glucose,Random 232 mg/dL (74-106); Lipase 386 U/L (73-393); Magnesium 1.7 mg/dL (1.5-2.5); Sodium 140 meq/L (136-145); Total Protein 5.7 g/dL (6.4-8.2)
[2018-03-07 09:55] LABS: Potassium 2.9 meq/L (3.5-5.1)
[2018-03-07] MEDS: Sod Chloride 0.9% Inj 1,000 ML IV.CONT SCH (10:41)
--- NOTE | 2018-03-07 10:59 | P.CONNEU ---
History of Present Illness Service: Neurology Primary Care Provider: Dada Mazariegos MD Chief Complaint: Seizure History of Present Illness: 77-year-old male admitted for GI symptoms pancreatitis being seen by general surgery. He has a history of seizures and due to abdominal discomfort has been had reduced p.o. intake and has been able take his seizure medications. Apparently overnight he had a seizure has been confused given Ativan. Poor patient poor historian medical chart reviewed. Dilantin level found to be subtherapeutic. Apparently has a history of right cerebellar mass resection few years ago. Benign tissue suspect to be vascular malformation. Recent CT brain scan during this admission demonstrated encephalomalacia changes in the cerebellum and also apparently the right frontal region. Review of Systems All other systems reviewed negative except as stated in HPI PMFSH - History History Provided By: Patient - Medical History Medical History: Medical History (Last Reviewed 03/07/18 @ 08:01 by Maranda Millan MD) AVM (arteriovenous malformation) CAD (coronary artery disease) Depression HTN (hypertension) High cholesterol History of brain tumor History of seizure - Surgical History Surgical History: Surgical History (Last Reviewed 03/07/18 @ 08:01 by Maranda Millan MD) History of appendectomy History of coronary artery stent placement History of tonsillectomy - Family History Family History: Family History (Last Reviewed 03/07/18 @ 08:01 by Maranda Millan MD) Mother Family history of heart disease - Tobacco History Smoking Status: Unknown if ever smoked - Alcohol History How Often Do You Have a Drink Containing Alcohol: Never - Substance Use History Substance History: No History of Abuse - Travel History Recent Travel in the [place] Within the Last 8 Weeks: No Recent Travel Out of the Country Within the Last 8 Weeks: No - Immunization History Tetanus Immunization: Unsure Medications and Allergies Active Medications: Active Medications Bisacodyl (Dulcolax Supp) 10 mg RECTAL DAILY PRN PRN Reason: SEVERE CONSITIPATION Clopidogrel Bisulfate (Plavix) 75 mg PO DAILY GINA Last Admin: 03/07/18 08:11 Dose: 75 mg Diphenhydramine HCl (Benadryl) 25 mg PO Q6H PRN PRN Reason: RASH Enalaprilat (Vasotec Inj) 1.25 mg IV.PUSH Q6H PRN PRN Reason: BLOOD PRESSURE MANAGEMENT Last Admin: 03/07/18 06:30 Dose: 1.25 mg Heparin Sodium (Porcine) (Heparin Inj) 5,000 units SQ Q12HR [facility] Last Admin: 03/07/18 08:10 Dose: 5,000 units Hydralazine HCl (Apresoline) 10 mg PO TID [facility] Last Admin: 03/07/18 08:09 Dose: 10 mg Sodium Chloride (Ns Inj) 500 mls @ 0 mls/hr IV.SIG BOLUS GINA Last Infusion: 03/04/18 17:31 Dose: Infused Sodium Chloride (Ns Inj) 500 mls @ 0 mls/hr IV.SIG BOLUS GINA Last Infusion: 03/04/18 20:08 Dose: Infused Piperacillin/Tazobactam/Dextrose (Zosyn 3.375 Gm Premix) 50 mls @ 100 mls/hr IV.SIG Q6H [facility] Last Admin: 03/07/18 02:17 Dose: 100 mls/hr Metronidazole/Sodium Chloride (Flagyl 500 Mg Inj) 100 mls @ 100 mls/hr IV.SIG Q8H [facility] Last Admin: 03/07/18 08:09 Dose: 100 mls/hr Potassium Chloride (Kcl 10 Meq Premix Inj) 10 meq in 100 mls @ 100 mls/hr IV.SIG Q1H GINA Stop: 03/07/18 10:59 Last Admin: 03/07/18 10:35 Dose: 100 mls/hr Sodium Chloride (Ns Inj) 1,000 mls @ 50 mls/hr IV.CONT .Q20H [facility] Last Admin: 03/07/18 10:41 Dose: 50 mls/hr Lactulose (Lactulose Liq) 30 ml PO DAILY PRN PRN Reason: SEVERE CONSITIPATION Levetiracetam (Keppra) 1,000 mg PO TID [facility] Last Admin: 03/07/18 08:10 Dose: 1,000 mg Lisinopril (Prinivil) 20 mg PO BID [facility] Last Admin: 03/06/18 20:30 Dose: 20 mg Lorazepam (Ativan Inj) 1 mg IV.PUSH Q10M PRN PRN Reason: SEE LABEL COMMENTS Metoprolol Tartrate (Lopressor) 50 mg PO BID [facility] Last Admin: 03/07/18 08:09 Dose: 50 mg Ondansetron HCl (Zofran Inj) 4 mg IV.PUSH Q6H PRN PRN Reason: NAUSEA OR VOMITING Phenytoin Sodium (Dilantin) 100 mg PO BID [facility] Sennosides (Senokot) 17.2 mg PO Q12H PRN PRN Reason: Moderate Constipation Sertraline HCl (Zoloft) 100 mg PO BID [facility] Last Admin: 03/07/18 08:09 Dose: 100 mg Sodium Chloride (Ns Flush) 2 ml IV.FLUSH PRN PRN PRN Reason: FLUSH AFTER USING IV ACCESS Allergies Allergy/AdvReac Type Severity Reaction Status Date / Time penicillin G Allergy Severe RASHES Verified 03/04/18 14:00 Sulfa (Sulfonamide Allergy Severe Rash Verified 03/04/18 14:00 Antibiotics) Home Medications Medication Instructions Recorded Confirmed Type atorvastatin 20 mg PO DAILY 03/04/18 03/04/18 History clopidogrel 75 mg PO DAILY 03/04/18 03/04/18 History levetiracetam 1,000 mg PO TID 03/04/18 03/04/18 History lisinopril 20 mg PO BID 03/04/18 03/04/18 History metoprolol tartrate 50 mg PO BID 03/04/18 03/04/18 History phenytoin sodium extended 100 mg PO DAILY 03/04/18 03/04/18 History sertraline 100 mg PO BID 03/04/18 03/04/18 History Exam Vital signs: Vital Signs 03/06/18 12:00 03/06/18 16:00 03/06/18 20:00 Temperature 98.8 F 98.5 F 99.3 F Pulse Rate 67 76 Respiratory Rate 20 16 16 Blood Pressure 190/85 H 198/84 H 173/79 H Pulse Oximetry 97 97 03/07/18 00:00 03/07/18 04:00 03/07/18 04:40 Temperature 98.6 F 98.2 F Pulse Rate 63 61 94 H Respiratory Rate 16 18 Blood Pressure 196/80 H 179/81 H Pulse Oximetry 94 L 96 03/07/18 04:50 03/07/18 04:55 03/07/18 05:08 Temperature Pulse Rate 79 81 81 Respiratory Rate Blood Pressure 190/86 H 178/83 H 189/81 H Pulse Oximetry 95 98 96 03/07/18 08:00 Temperature 98.3 F Pulse Rate 72 Respiratory Rate 20 Blood Pressure 193/84 H Pulse Oximetry 98 Intake & Output 03/06/18 03/07/18 03/07/18 18:59 06:59 18:59 Intake Total 1400 / 1400 630 / 630 600 / 600 Output Total 300 / 300 Balance 1400 / 1400 330 / 330 600 / 600 Weight 83.2 kg Intake: IV 1400 / 1400 150 / 150 600 / 600 D5W/1/2 NS Inj 1,000 ML @ 50 500 / 500 mls/hr IV.CONT .Q20H [facility] Rx#: [id number] NS Inj 1,000 ML @ 84 mls/hr IV. 1000 / 1000 CONT .[id number] GINA Rx#: [id number] Zosyn 3.375 GM Premix 50 ML @ 100 / 100 50 / 50 100 mls/hr IV.SIG Q6H [facility] Rx#: [id number] KCl 10 mEq Premix Inj 10 meq In 100 / 100 100 ml @ 100 mls/hr IV.SIG Q1H [facility] Rx#:[id number] KCl 20 mEq Premix Inj 20 meq In 100 / 100 100 ml @ 50 mls/hr IV.SIG ONCE ONE Rx#:[id number] Flagyl 500 MG Inj 100 ML @ 100 200 / 200 100 / 100 mls/hr IV.SIG Q8H [facility] Rx#: [id number] Oral 480 / 480 Output: Urine 300 / 300 Other: # Incontinent Voids 1 # Incontinent Bowel Movements 1 Narrative: GENERAL: in NAD, SKIN: Warm and dry. HEAD: Atraumatic. Normocephalic. EYES: Pupils sluggishly reactive ENT: No nasal bleeding or discharge. Mucous membranes pink and moist. NECK: Trachea midline. No JVD. CARDIOVASCULAR: Regular rate and rhythm. RESPIRATORY: No accessory muscle use. GASTROINTESTINAL: Abdomen appears soft nontender MUSCULOSKELETAL: Extremities without clubbing, cyanosis, or edema. No obvious deformities. Neurology: Somnolent arousable occasionally follows simple motor request, right head tilt no gaze deviation no involuntary movements, sluggish reactive pupils, able raise left greater than right upper extremity withdraws lower extremities some atrophy reflex 1+ plantarflex her no clonus gait not assessed secondary fall risk sensory cerebellar exam limited due to lethargy PSYCHIATRIC: Calm. - Constitutional no acute distress Results - Labs CBC & Chem 7: 03/07/18 07:39 03/07/18 07:39 Labs: Laboratory Results - last 24 hr 03/06/18 03/07/18 03/07/18 19:13 04:55 05:45 WBC 7.4 RBC 3.22 L Hgb 9.5 L Hct 28.7 L MCV 89.1 MCH 29.4 MCHC 33.0 RDW 14.2 Plt Count 200 MPV 8.0 Prelim Diff (Auto) Slide review pending Neut % (Auto) 80.2 H Lymph % (Auto) 10.2 [place] % (Auto) 7.3 Eos % (Auto) 2.0 Baso % (Auto) 0.3 Neut # (Auto) 5.9 Lymph # (Auto) 0.8 L [place] # (Auto) 0.5 Eos # (Auto) 0.2 Baso # (Auto) 0.0 WBC Differential . Diff Scan Auto diff confirmed Differential Comment . Platelet Estimate Normal Platelet Morphology Normal Sodium Potassium Chloride Carbon Dioxide Anion Gap BUN Creatinine Estimated GFR POC Glucose 207 H Random Glucose Calcium Magnesium Total Bilirubin AST ALT Alkaline Phosphatase Ammonia Total Creatine Kinase Total Protein Albumin Lipase CA 19-9 Antigen 173.5 H Phenytoin 03/07/18 03/07/18 03/07/18 05:45 05:45 07:39 WBC 7.6 RBC 3.13 L Hgb 9.4 L Hct 27.7 L MCV 88.5 MCH 29.9 MCHC 33.8 RDW 14.5 Plt Count 196 MPV 8.5 Prelim Diff (Auto) Neut % (Auto) Lymph % (Auto) [place] % (Auto) Eos % (Auto) Baso % (Auto) Neut # (Auto) Lymph # (Auto) [place] # (Auto) Eos # (Auto) Baso # (Auto) WBC Differential Diff Scan Differential Comment Platelet Estimate Platelet Morphology Sodium 141 Potassium 2.9 L* Chloride 107 Carbon Dioxide 23.2 Anion Gap 11 BUN 8 Creatinine 0.75 Estimated GFR Greater than 89 POC Glucose Random Glucose 225 H Calcium 7.5 L Magnesium 1.7 Total Bilirubin 1.0 AST 95 H ALT 100 H Alkaline Phosphatase 950 H Ammonia 44 H Total Creatine Kinase 40 Total Protein 5.6 L Albumin 1.7 L Lipase CA 19-9 Antigen Phenytoin 3.0 L 03/07/18 07:39 WBC RBC Hgb Hct MCV MCH MCHC RDW Plt Count MPV Prelim Diff (Auto) Neut % (Auto) Lymph % (Auto) [place] % (Auto) Eos % (Auto) Baso % (Auto) Neut # (Auto) Lymph # (Auto) [place] # (Auto) Eos # (Auto) Baso # (Auto) WBC Differential Diff Scan Differential Comment Platelet Estimate Platelet Morphology Sodium 140 Potassium 2.9 L* Chloride 105 Carbon Dioxide 26.6 Anion Gap 8 BUN 8 Creatinine 0.77 Estimated GFR Greater than 89 POC Glucose Random Glucose 232 H Calcium 7.7 L Magnesium 1.7 Total Bilirubin 1.0 AST 88 H ALT 101 H Alkaline Phosphatase 927 H Ammonia Total Creatine Kinase Total Protein 5.7 L Albumin 1.7 L Lipase 386 CA 19-9 Antigen Phenytoin Review/Management - Diagnosis (1) Seizures Code(s): R56.9 - Unspecified convulsions Status: Acute Current Visit: Yes (2) Status post craniectomy Code(s): Z98.890 - Other specified postprocedural states Status: Acute Current Visit: Yes (3) Encephalopathy Code(s): G93.40 - Encephalopathy, unspecified Status: Acute Current Visit: Yes - Review/Management Plan: Breakthrough seizure secondary to subtherapeutic anticonvulsant levels related to poor p.o. intake Neuro examination compromised exam secondary lethargy which may be secondary to Ativan given overnight Recommendation EEG MRI brain if feasible Will change seizure meds to IV Discussed with RN Seizure fall precautions No driving
--- NOTE | 2018-03-07 10:59 | P.PN ---
Subjective Interval history: Follow-up for suspected gallstones/cholecystitis-patient seen and examined. Mohini called at 0500, patient was noted with the seizure, generalized tonic the last about 5 minutes. He received Ativan. He was found postictal. Patient is now examined, he is lethargic, opens to voice, oriented to self. No abdominal pain, no nausea, no vomiting. No fever last night. Blood pressure elevated, 180s to 190s. Physical Exam Vital signs: Vital Signs 03/06/18 12:00 03/06/18 16:00 03/06/18 20:00 Temperature 98.8 F 98.5 F 99.3 F Pulse Rate 67 76 Respiratory Rate 20 16 16 Blood Pressure 190/85 H 198/84 H 173/79 H Pulse Oximetry 97 97 03/07/18 00:00 03/07/18 04:00 03/07/18 04:40 Temperature 98.6 F 98.2 F Pulse Rate 63 61 94 H Respiratory Rate 16 18 Blood Pressure 196/80 H 179/81 H Pulse Oximetry 94 L 96 03/07/18 04:50 03/07/18 04:55 03/07/18 05:08 Temperature Pulse Rate 79 81 81 Respiratory Rate Blood Pressure 190/86 H 178/83 H 189/81 H Pulse Oximetry 95 98 96 03/07/18 08:00 Temperature 98.3 F Pulse Rate 72 Respiratory Rate 20 Blood Pressure 193/84 H Pulse Oximetry 98 Intake & Output 03/06/18 03/07/18 03/07/18 18:59 06:59 18:59 Intake Total 1400 / 1400 630 / 630 600 / 600 Output Total 300 / 300 Balance 1400 / 1400 330 / 330 600 / 600 Weight 83.2 kg Intake: IV 1400 / 1400 150 / 150 600 / 600 D5W/1/2 NS Inj 1,000 ML @ 50 500 / 500 mls/hr IV.CONT .Q20H [facility] Rx#: [id number] NS Inj 1,000 ML @ 84 mls/hr IV. 1000 / 1000 CONT .[id number] GINA Rx#: [id number] Zosyn 3.375 GM Premix 50 ML @ 100 / 100 50 / 50 100 mls/hr IV.SIG Q6H [facility] Rx#: [id number] KCl 10 mEq Premix Inj 10 meq In 100 / 100 100 ml @ 100 mls/hr IV.SIG Q1H [facility] Rx#:[id number] KCl 20 mEq Premix Inj 20 meq In 100 / 100 100 ml @ 50 mls/hr IV.SIG ONCE ONE Rx#:[id number] Flagyl 500 MG Inj 100 ML @ 100 200 / 200 100 / 100 mls/hr IV.SIG Q8H [facility] Rx#: [id number] Oral 480 / 480 Output: Urine 300 / 300 Other: # Incontinent Voids 1 # Incontinent Bowel Movements 1 Narrative: GENERAL: This is an elderly male patient, in no apparent distress. SKIN: No rashes or lesions. Cool and dry. Slight jaundice noted. Pale. HEAD: Normocephalic. EYES: No injection or drainage. ENT: Nose without bleeding, purulent drainage. NECK: Trachea midline. No JVD. CARDIOVASCULAR: Regular rate and rhythm without murmurs, gallops, or rubs. RESPIRATORY: Clear to auscultation. Breath sounds equal bilaterally. No wheezes , rales, or rhonchi. GASTROINTESTINAL: Normal bowel sounds. Abdomen soft, non-tender, nondistended. No guarding. MUSCULOSKELETAL: Extremities without clubbing, cyanosis. NEUROLOGICAL: Awakes to voice, lethargic. Oriented to self, provides name. Follow simple commands. No focal deficits. - Urinary Catheter Management Indwelling Urethral Catheter Cath placed during this visit: yes, but has since been removed by the nurse Reason for continuing: Not indwelling catheter Insertion date: 03/04/18 Insertion time: 16:20 Removal date: 03/05/18 Removal time: 11:14 Results - Labs CBC & Chem 7: 03/07/18 07:39 03/07/18 07:39 Laboratory Results - last 24 hr 03/06/18 03/07/18 03/07/18 19:13 04:55 05:45 WBC 7.4 RBC 3.22 L Hgb 9.5 L Hct 28.7 L MCV 89.1 MCH 29.4 MCHC 33.0 RDW 14.2 Plt Count 200 MPV 8.0 Prelim Diff (Auto) Slide review pending Neut % (Auto) 80.2 H Lymph % (Auto) 10.2 [place] % (Auto) 7.3 Eos % (Auto) 2.0 Baso % (Auto) 0.3 Neut # (Auto) 5.9 Lymph # (Auto) 0.8 L [place] # (Auto) 0.5 Eos # (Auto) 0.2 Baso # (Auto) 0.0 WBC Differential . Diff Scan Auto diff confirmed Differential Comment . Platelet Estimate Normal Platelet Morphology Normal Sodium Potassium Chloride Carbon Dioxide Anion Gap BUN Creatinine Estimated GFR POC Glucose 207 H Random Glucose Calcium Magnesium Total Bilirubin AST ALT Alkaline Phosphatase Ammonia Total Creatine Kinase Total Protein Albumin Lipase CA 19-9 Antigen 173.5 H Phenytoin 03/07/18 03/07/18 03/07/18 05:45 05:45 07:39 WBC 7.6 RBC 3.13 L Hgb 9.4 L Hct 27.7 L MCV 88.5 MCH 29.9 MCHC 33.8 RDW 14.5 Plt Count 196 MPV 8.5 Prelim Diff (Auto) Neut % (Auto) Lymph % (Auto) [place] % (Auto) Eos % (Auto) Baso % (Auto) Neut # (Auto) Lymph # (Auto) [place] # (Auto) Eos # (Auto) Baso # (Auto) WBC Differential Diff Scan Differential Comment Platelet Estimate Platelet Morphology Sodium 141 Potassium 2.9 L* Chloride 107 Carbon Dioxide 23.2 Anion Gap 11 BUN 8 Creatinine 0.75 Estimated GFR Greater than 89 POC Glucose Random Glucose 225 H Calcium 7.5 L Magnesium 1.7 Total Bilirubin 1.0 AST 95 H ALT 100 H Alkaline Phosphatase 950 H Ammonia 44 H Total Creatine Kinase 40 Total Protein 5.6 L Albumin 1.7 L Lipase CA 19-9 Antigen Phenytoin 3.0 L 03/07/18 07:39 WBC RBC Hgb Hct MCV MCH MCHC RDW Plt Count MPV Prelim Diff (Auto) Neut % (Auto) Lymph % (Auto) [place] % (Auto) Eos % (Auto) Baso % (Auto) Neut # (Auto) Lymph # (Auto) [place] # (Auto) Eos # (Auto) Baso # (Auto) WBC Differential Diff Scan Differential Comment Platelet Estimate Platelet Morphology Sodium 140 Potassium 2.9 L* Chloride 105 Carbon Dioxide 26.6 Anion Gap 8 BUN 8 Creatinine 0.77 Estimated GFR Greater than 89 POC Glucose Random Glucose 232 H Calcium 7.7 L Magnesium 1.7 Total Bilirubin 1.0 AST 88 H ALT 101 H Alkaline Phosphatase 927 H Ammonia Total Creatine Kinase Total Protein 5.7 L Albumin 1.7 L Lipase 386 CA 19-9 Antigen Phenytoin Microbiology 03/04/18 16:30 Catheterized Urine Urine Culture - Final No growth in 48 hours Assessment and Plan - Assessment (1) Gallstone pancreatitis Code(s): K85.10 - Biliary acute pancreatitis without necrosis or infection Status: Acute - Plan Mr. Pena is a 77 y/o male with a history of cerebellar AVM s/p right suboccipital craniectomy for resection of cerebellar mass on 03/30/15, seizures , hypertension, CAD, depression, and hyperlipidemia who presented to the ER in [place] for nausea, diarrhea, vomiting, and fevers for 6 days. The patient was found to have findings suspicious for gallstone pancreatitis and was transferred to [facility] under the hospitalist service for further evaluation and management. Suspected gallstone pancreatitis -Abdomen/pelvis CT shows mural thickening of gallbladder, mild inflammatory changes around gallbladder and pancreas, no bowel obstruction -MRCP 03/05/2018, findings normal gallbladder with wall thickening, pericholecystic inflammation, possibly trace pericholecystic fluids, findings concerning for cholecystitis. There is large within the gallbladder. Acute pancreatitis -LFTs continue to trend down. Lipase 386. -Appreciate GI input. Since first episode of pancreatitis, CVA 199 was ordered -173.5. Possible elevation due to sludge in gallbladder. Per GI, recommends supportive care,allow labs to trend down and surgery later. -Continue with clear liquid diet -Cautious hydration Zofran 4 milligrams IV push every 6 hours as needed for nausea or vomiting -Continue Zosyn 3.3751 g IV every 6 as well as Flagyl 500 mg IV every 8 -Follow labs in the morning -Surgery recommends lap kailee with possible IOC on Thursday or Thursday. -D/W yesterday, she would prefer conservative management. Seizures Halicat today, had seizure, approximately 5 minutes. Was given Ativan. Dilantin level subtherapeutic 3-he has been nauseous and vomiting. -Continue Keppra -level pending -We will increase Dilantin 100 mg p.o. twice daily, repeat Dilantin level in the morning Neurology consult pending Will order EEG CT of the head pending Continue with seizure precautions Hyperglycemia, no history of diabetes Blood glucose has been noted elevated initially 416 on BMP, today 232 We will order Accu-Cheks every 6, may need insulin Hemoglobin A1c will be ordered Hypokalemia -Potassium 2.9 today, will replace. Recheck this afternoon History of coronary artery disease with stents -Continue metoprolol -hold Plavix for now History of hypertension Blood pressure remains elevated -Continue lisinopril -cont. Vasotec PRN -Continue with hydralazine 10 mg po TID Heparin 5000 units subcu for DVT prophylaxis Repeat labs in the morning Repeat labs in the morning Code Status: Full code Discussed Condition With: RN, pt Discharge Planning: Not ready for dc yet.
[2018-03-07] MEDS ORDERED: Fosphenytoin Inj 1,000 MGPE in Sodium Chlor 0.9% Inj 50 ML IV.SIG ONE (12:00)
--- NOTE | 2018-03-07 12:18 | P.PNGS ---
Subjective Patient reports: feels better, pain is less (htn, labs improving seizure last night CT pending) Physical Exam Vital signs: Vital Signs 03/06/18 16:00 03/06/18 20:00 03/07/18 00:00 Temperature 98.5 F 99.3 F 98.6 F Pulse Rate 76 63 Respiratory Rate 16 16 16 Blood Pressure 198/84 H 173/79 H 196/80 H Pulse Oximetry 97 94 L 03/07/18 04:00 03/07/18 04:40 03/07/18 04:50 Temperature 98.2 F Pulse Rate 61 94 H 79 Respiratory Rate 18 Blood Pressure 179/81 H 190/86 H Pulse Oximetry 96 95 03/07/18 04:55 03/07/18 05:08 03/07/18 08:00 Temperature 98.3 F Pulse Rate 81 81 72 Respiratory Rate 20 Blood Pressure 178/83 H 189/81 H 193/84 H Pulse Oximetry 98 96 98 Intake & Output 03/06/18 03/07/18 03/07/18 18:59 06:59 18:59 Intake Total 1400 / 1400 630 / 630 600 / 600 Output Total 300 / 300 Balance 1400 / 1400 330 / 330 600 / 600 Weight 83.2 kg Intake: IV 1400 / 1400 150 / 150 600 / 600 D5W/1/2 NS Inj 1,000 ML @ 50 500 / 500 mls/hr IV.CONT .Q20H [facility] Rx#: [id number] NS Inj 1,000 ML @ 84 mls/hr IV. 1000 / 1000 CONT .[id number] [facility] Rx#: [id number] Zosyn 3.375 GM Premix 50 ML @ 100 / 100 50 / 50 100 mls/hr IV.SIG Q6H [facility] Rx#: [id number] KCl 10 mEq Premix Inj 10 meq In 100 / 100 100 ml @ 100 mls/hr IV.SIG Q1H [facility] Rx#:[id number] KCl 20 mEq Premix Inj 20 meq In 100 / 100 100 ml @ 50 mls/hr IV.SIG ONCE ONE Rx#:[id number] Flagyl 500 MG Inj 100 ML @ 100 200 / 200 100 / 100 mls/hr IV.SIG Q8H [facility] Rx#: [id number] Oral 480 / 480 Output: Urine 300 / 300 Other: # Incontinent Voids 1 # Incontinent Bowel Movements 1 - Routine Abdominal Exam Present: soft (non tender) - Urinary Catheter Management Indwelling Urethral Catheter Cath placed during this visit: yes, but has since been removed by the nurse Reason for continuing: Not indwelling catheter Insertion date: 03/04/18 Insertion time: 16:20 Removal date: 03/05/18 Removal time: 11:14 Results - Labs 03/07/18 07:39 03/07/18 07:39 Laboratory Results - last 24 hr 03/06/18 03/07/18 03/07/18 19:13 04:55 05:45 WBC 7.4 RBC 3.22 L Hgb 9.5 L Hct 28.7 L MCV 89.1 MCH 29.4 MCHC 33.0 RDW 14.2 Plt Count 200 MPV 8.0 Prelim Diff (Auto) Slide review pending Neut % (Auto) 80.2 H Lymph % (Auto) 10.2 [place] % (Auto) 7.3 Eos % (Auto) 2.0 Baso % (Auto) 0.3 Neut # (Auto) 5.9 Lymph # (Auto) 0.8 L [place] # (Auto) 0.5 Eos # (Auto) 0.2 Baso # (Auto) 0.0 WBC Differential . Diff Scan Auto diff confirmed Differential Comment . Platelet Estimate Normal Platelet Morphology Normal Sodium Potassium Chloride Carbon Dioxide Anion Gap BUN Creatinine Estimated GFR POC Glucose 207 H Random Glucose Calcium Magnesium Total Bilirubin AST ALT Alkaline Phosphatase Ammonia Total Creatine Kinase Total Protein Albumin Lipase CA 19-9 Antigen 173.5 H Phenytoin 03/07/18 03/07/18 03/07/18 05:45 05:45 07:39 WBC 7.6 RBC 3.13 L Hgb 9.4 L Hct 27.7 L MCV 88.5 MCH 29.9 MCHC 33.8 RDW 14.5 Plt Count 196 MPV 8.5 Prelim Diff (Auto) Neut % (Auto) Lymph % (Auto) [place] % (Auto) Eos % (Auto) Baso % (Auto) Neut # (Auto) Lymph # (Auto) [place] # (Auto) Eos # (Auto) Baso # (Auto) WBC Differential Diff Scan Differential Comment Platelet Estimate Platelet Morphology Sodium 141 Potassium 2.9 L* Chloride 107 Carbon Dioxide 23.2 Anion Gap 11 BUN 8 Creatinine 0.75 Estimated GFR Greater than 89 POC Glucose Random Glucose 225 H Calcium 7.5 L Magnesium 1.7 Total Bilirubin 1.0 AST 95 H ALT 100 H Alkaline Phosphatase 950 H Ammonia 44 H Total Creatine Kinase 40 Total Protein 5.6 L Albumin 1.7 L Lipase CA 19-9 Antigen Phenytoin 3.0 L 03/07/18 07:39 WBC RBC Hgb Hct MCV MCH MCHC RDW Plt Count MPV Prelim Diff (Auto) Neut % (Auto) Lymph % (Auto) [place] % (Auto) Eos % (Auto) Baso % (Auto) Neut # (Auto) Lymph # (Auto) [place] # (Auto) Eos # (Auto) Baso # (Auto) WBC Differential Diff Scan Differential Comment Platelet Estimate Platelet Morphology Sodium 140 Potassium 2.9 L* Chloride 105 Carbon Dioxide 26.6 Anion Gap 8 BUN 8 Creatinine 0.77 Estimated GFR Greater than 89 POC Glucose Random Glucose 232 H Calcium 7.7 L Magnesium 1.7 Total Bilirubin 1.0 AST 88 H ALT 101 H Alkaline Phosphatase 927 H Ammonia Total Creatine Kinase Total Protein 5.7 L Albumin 1.7 L Lipase 386 CA 19-9 Antigen Phenytoin - Imaging Imaging: ITS Impressions Chest X-Ray 03/04/18 15:28 CONCLUSION: Negative examination. Head CT 03/04/18 15:28 CONCLUSION: 1. No acute findings. . Abdomen/Pelvis CT 03/04/18 16:53 CONCLUSION: 1. Mural thickening of the gallbladder. Questionable mild inflammatory changes around the gallbladder and pancreas. 2. Small hiatal hernia. 3. No bowel obstruction, free fluid or free air. Byrd catheter in bladder. Cholangiopancreatography MRI 03/05/18 00:00 CONCLUSION: 1. Abnormal gallbladder with wall thickening, pericholecystic inflammation, and possibly trace pericholecystic fluid, findings concerning for cholecystitis. There is sludge within the gallbladder. 2. Acute pancreatitis. Assessment and Plan - Assessment (1) Gallstone pancreatitis Code(s): K85.10 - Biliary acute pancreatitis without necrosis or infection Status: Acute - Plan Code Status: gallstone pancreatitits seizure last night await CT head lipase better, tbil trending down PLAN OR early this week pending clearance from neuro continue to hold eliquis
--- NOTE | 2018-03-07 12:33 | MR ---
EXAM DATE: 03/07/2018 11:13 AM EDT AGE/SEX: 77 years / Male INDICATIONS: CVA. CLINICAL DATA: This is the patient's initial encounter. Patient reports that signs and symptoms have been present for 1 day and indicates a pain score of 0/10. MEDICAL/SURGICAL HISTORY: Seizures. Cardiovascular disease. Hypertension. Coronary artery chauncey nt. Appendectomy. Tonsillectomy. Brain tumor removal. COMPARISON: [facility], CT BRAIN W/O CONTRAST, 03/20/2017. . TECHNIQUE: Multiplanar, multisequence examination of the brain was performed without contrast. FINDINGS: Cerebrum: Postoperative features of right occipital craniotomy. Moderate diffuse cerebral atrophy. T he ventricles are slightly asymmetrical but stable from previous exam. No evidence of midline shift, mass lesion, hemorrhage or acute infarction. No extraaxial fluid collections are seen. The pituitar y gland and suprasellar cistern are normal in configuration. White Matter: Mild periventricular and focal deep white matter T2 prolongation. Posterior Fossa: Encephalomalacia in the right cerebellar hemisphere similar to previous exam. The 4t h ventricle is midline. The cerebellopontine angle is unremarkable. The cerebellar tonsils are norm al in position. Diffusion Imaging: No focal areas of restricted diffusion are seen. No evidence of acute infarction . Extracranial: The visualized portions of the orbits and paranasal sinuses are unremarkable. CONCLUSION: 1. Postoperative features of prior right occipital craniotomy and encephalomalacia in the right cere bellar hemisphere. 2. Senescent changes with mild periventricular ischemic white matter demyelination. 3. No acute abnormality. Specifically, no evidence for acute infarction. Electronically signed by: Nikhil Sawyer MD 03/07/2018 12:31 PM EDT
--- NOTE | 2018-03-07 12:48 | CT ---
EXAM DATE: 03/07/2018 12:23 PM EDT AGE/SEX: 77 years / Male INDICATIONS: Seizure CLINICAL DATA: This is the patient's initial encounter. Patient reports that signs and symptoms have been present for 1 day and indicates a pain score of 0/10. MEDICAL/SURGICAL HISTORY: Seizures. Hypertension. Appendectomy. Tonsillectomy. Coronary artery st ent, Brain tumor removed RADIATION DOSE: 38.15 CTDI (mGy) COMPARISON: [facility], CT HEAD W/O CONTRAST, 03/04/2018. . TECHNIQUE: CT of the head without contrast. Using automated exposure control and adjustment of the mA and/or kV according to patient size, radiation dose was kept as low as reasonably achievable to ob tain optimal diagnostic quality images. DICOM format image data is available electronically for revi ew and comparison. FINDINGS: Cerebrum: Moderate diffuse cerebral atrophy. The ventricles are asymmetrical but otherwise stable. N o evidence of midline shift, mass lesion, hemorrhage or acute infarction. No extraaxial fluid collec tions are seen. Posterior Fossa: Postoperative features of right occipital craniectomy with encephalomalacia in the right cerebellar hemisphere. The 4th ventricle is midline. The cerebellopontine angle is unremarkabl e. Extracranial: The visualized portion of the orbits is intact. Skull: The calvaria is intact. No evidence of skull fracture. CONCLUSION: 1. Stable postoperative features in the posterior fossa with evidence of malacia in the right cerebe llar hemisphere. 2. Senescent changes without acute abnormality. Specifically, no evidence for acute hemorrhage. . Electronically signed by: Nikhil Sawyer MD 03/07/2018 12:47 PM EDT
[2018-03-07] MEDS: Lisinopril 20 MG Tablet PO SCH ×2 (13:15→20:00)
--- NOTE | 2018-03-07 13:37 | P.PNGS ---
Subjective Patient reports: no new complaints, feels better, tolerating liquids well Physical Exam Vital signs: Vital Signs 03/06/18 16:00 03/06/18 20:00 03/07/18 00:00 Temperature 98.5 F 99.3 F 98.6 F Pulse Rate 76 63 Respiratory Rate 16 16 16 Blood Pressure 198/84 H 173/79 H 196/80 H Pulse Oximetry 97 94 L 03/07/18 04:00 03/07/18 04:40 03/07/18 04:50 Temperature 98.2 F Pulse Rate 61 94 H 79 Respiratory Rate 18 Blood Pressure 179/81 H 190/86 H Pulse Oximetry 96 95 03/07/18 04:55 03/07/18 05:08 03/07/18 08:00 Temperature 98.3 F Pulse Rate 81 81 72 Respiratory Rate 20 Blood Pressure 178/83 H 189/81 H 193/84 H Pulse Oximetry 98 96 98 03/07/18 12:00 Temperature 99.2 F Pulse Rate 78 Respiratory Rate 18 Blood Pressure 198/88 H Pulse Oximetry 97 Intake & Output 03/06/18 03/07/18 03/07/18 18:59 06:59 18:59 Intake Total 1400 / 1400 630 / 630 800 / 800 Output Total 300 / 300 Balance 1400 / 1400 330 / 330 800 / 800 Weight 83.2 kg Intake: IV 1400 / 1400 150 / 150 800 / 800 D5W/1/2 NS Inj 1,000 ML @ 50 500 / 500 mls/hr IV.CONT .Q20H IGNA Rx#: [id number] NS Inj 1,000 ML @ 84 mls/hr IV. 1000 / 1000 CONT .[id number] GINA Rx#: [id number] Zosyn 3.375 GM Premix 50 ML @ 100 / 100 50 / 50 100 mls/hr IV.SIG Q6H GINA Rx#: [id number] KCl 10 mEq Premix Inj 10 meq In 200 / 200 100 ml @ 100 mls/hr IV.SIG Q1H IGNA Rx#:[id number] KCl 20 mEq Premix Inj 20 meq In 100 / 100 100 ml @ 50 mls/hr IV.SIG ONCE ONE Rx#:[id number] Flagyl 500 MG Inj 100 ML @ 100 200 / 200 100 / 100 100 / 100 mls/hr IV.SIG Q8H GINA Rx#: [id number] Oral 480 / 480 Output: Urine 300 / 300 Other: # Incontinent Voids 1 # Incontinent Bowel Movements 1 - Routine Abdominal Exam Present: soft, normoactive bowel sounds - Urinary Catheter Management Indwelling Urethral Catheter Cath placed during this visit: yes, but has since been removed by the nurse Reason for continuing: Not indwelling catheter Insertion date: 03/04/18 Insertion time: 16:20 Removal date: 03/05/18 Removal time: 11:14 Results - Labs 03/07/18 07:39 03/07/18 07:39 Laboratory Results - last 24 hr 03/06/18 03/07/18 03/07/18 19:13 04:55 05:45 WBC 7.4 RBC 3.22 L Hgb 9.5 L Hct 28.7 L MCV 89.1 MCH 29.4 MCHC 33.0 RDW 14.2 Plt Count 200 MPV 8.0 Prelim Diff (Auto) Slide review pending Neut % (Auto) 80.2 H Lymph % (Auto) 10.2 Heard % (Auto) 7.3 Eos % (Auto) 2.0 Baso % (Auto) 0.3 Neut # (Auto) 5.9 Lymph # (Auto) 0.8 L Heard # (Auto) 0.5 Eos # (Auto) 0.2 Baso # (Auto) 0.0 WBC Differential . Diff Scan Auto diff confirmed Differential Comment . Platelet Estimate Normal Platelet Morphology Normal Sodium Potassium Chloride Carbon Dioxide Anion Gap BUN Creatinine Estimated GFR POC Glucose 207 H Random Glucose Calcium Magnesium Total Bilirubin AST ALT Alkaline Phosphatase Ammonia Total Creatine Kinase Total Protein Albumin Lipase CA 19-9 Antigen 173.5 H Phenytoin 03/07/18 03/07/18 03/07/18 05:45 05:45 07:39 WBC 7.6 RBC 3.13 L Hgb 9.4 L Hct 27.7 L MCV 88.5 MCH 29.9 MCHC 33.8 RDW 14.5 Plt Count 196 MPV 8.5 Prelim Diff (Auto) Neut % (Auto) Lymph % (Auto) Heard % (Auto) Eos % (Auto) Baso % (Auto) Neut # (Auto) Lymph # (Auto) Heard # (Auto) Eos # (Auto) Baso # (Auto) WBC Differential Diff Scan Differential Comment Platelet Estimate Platelet Morphology Sodium 141 Potassium 2.9 L* Chloride 107 Carbon Dioxide 23.2 Anion Gap 11 BUN 8 Creatinine 0.75 Estimated GFR Greater than 89 POC Glucose Random Glucose 225 H Calcium 7.5 L Magnesium 1.7 Total Bilirubin 1.0 AST 95 H ALT 100 H Alkaline Phosphatase 950 H Ammonia 44 H Total Creatine Kinase 40 Total Protein 5.6 L Albumin 1.7 L Lipase CA 19-9 Antigen Phenytoin 3.0 L 03/07/18 03/07/18 07:39 12:55 WBC RBC Hgb Hct MCV MCH MCHC RDW Plt Count MPV Prelim Diff (Auto) Neut % (Auto) Lymph % (Auto) Heard % (Auto) Eos % (Auto) Baso % (Auto) Neut # (Auto) Lymph # (Auto) Heard # (Auto) Eos # (Auto) Baso # (Auto) WBC Differential Diff Scan Differential Comment Platelet Estimate Platelet Morphology Sodium 140 Potassium 2.9 L* Chloride 105 Carbon Dioxide 26.6 Anion Gap 8 BUN 8 Creatinine 0.77 Estimated GFR Greater than 89 POC Glucose 241 H Random Glucose 232 H Calcium 7.7 L Magnesium 1.7 Total Bilirubin 1.0 AST 88 H ALT 101 H Alkaline Phosphatase 927 H Ammonia Total Creatine Kinase Total Protein 5.7 L Albumin 1.7 L Lipase 386 CA 19-9 Antigen Phenytoin - Imaging Imaging: ITS Impressions Chest X-Ray 03/04/18 15:28 CONCLUSION: Negative examination. Abdomen/Pelvis CT 03/04/18 16:53 CONCLUSION: 1. Mural thickening of the gallbladder. Questionable mild inflammatory changes around the gallbladder and pancreas. 2. Small hiatal hernia. 3. No bowel obstruction, free fluid or free air. Byrd catheter in bladder. Cholangiopancreatography MRI 03/05/18 00:00 CONCLUSION: 1. Abnormal gallbladder with wall thickening, pericholecystic inflammation, and possibly trace pericholecystic fluid, findings concerning for cholecystitis. There is sludge within the gallbladder. 2. Acute pancreatitis. Head CT 03/07/18 00:00 CONCLUSION: 1. Stable postoperative features in the posterior fossa with evidence of malacia in the right cerebellar hemisphere. 2. Senescent changes without acute abnormality. Specifically, no evidence for acute hemorrhage. . Head MRI 03/07/18 00:00 CONCLUSION: 1. Postoperative features of prior right occipital craniotomy and encephalomalacia in the right cerebellar hemisphere. 2. Senescent changes with mild periventricular ischemic white matter demyelination. 3. No acute abnormality. Specifically, no evidence for acute infarction. Assessment and Plan - Assessment (1) Gallstone pancreatitis Code(s): K85.10 - Biliary acute pancreatitis without necrosis or infection Status: Acute - Plan I had a discussion with /caregiver at bedside. She does not want him to have surgery unless absolutely necessary. She understands risks of observation. Will advance diet and recheck labs. If he has a second attack will reconsider surgery. CHICO KNOX MD FACS
--- NOTE | 2018-03-07 14:24 | P.PNGI ---
Subjective Interval history: Eyes closed resting this a.m. EEG being done at bedside no acute nausea vomiting or abdominal pain color pale Physical Exam Vital signs: Vital Signs 03/06/18 16:00 03/06/18 20:00 03/07/18 00:00 Temperature 98.5 F 99.3 F 98.6 F Pulse Rate 76 63 Respiratory Rate 16 16 16 Blood Pressure 198/84 H 173/79 H 196/80 H Pulse Oximetry 97 94 L 03/07/18 04:00 03/07/18 04:40 03/07/18 04:50 Temperature 98.2 F Pulse Rate 61 94 H 79 Respiratory Rate 18 Blood Pressure 179/81 H 190/86 H Pulse Oximetry 96 95 03/07/18 04:55 03/07/18 05:08 03/07/18 08:00 Temperature 98.3 F Pulse Rate 81 81 72 Respiratory Rate 20 Blood Pressure 178/83 H 189/81 H 193/84 H Pulse Oximetry 98 96 98 03/07/18 12:00 Temperature 99.2 F Pulse Rate 78 Respiratory Rate 18 Blood Pressure 198/88 H Pulse Oximetry 97 Intake & Output 03/06/18 03/07/18 03/07/18 18:59 06:59 18:59 Intake Total 1400 / 1400 630 / 630 800 / 800 Output Total 300 / 300 Balance 1400 / 1400 330 / 330 800 / 800 Weight 83.2 kg Intake: IV 1400 / 1400 150 / 150 800 / 800 D5W/1/2 NS Inj 1,000 ML @ 50 500 / 500 mls/hr IV.CONT .Q20H GINA Rx#: [id number] NS Inj 1,000 ML @ 84 mls/hr IV. 1000 / 1000 CONT .[id number] GINA Rx#: [id number] Zosyn 3.375 GM Premix 50 ML @ 100 / 100 50 / 50 100 mls/hr IV.SIG Q6H GINA Rx#: [id number] KCl 10 mEq Premix Inj 10 meq In 200 / 200 100 ml @ 100 mls/hr IV.SIG Q1H GINA Rx#:[id number] KCl 20 mEq Premix Inj 20 meq In 100 / 100 100 ml @ 50 mls/hr IV.SIG ONCE ONE Rx#:[id number] Flagyl 500 MG Inj 100 ML @ 100 200 / 200 100 / 100 100 / 100 mls/hr IV.SIG Q8H GINA Rx#: [id number] Oral 480 / 480 Output: Urine 300 / 300 Other: # Incontinent Voids 1 # Incontinent Bowel Movements 1 - Constitutional mild distress, obese, disheveled - Routine HEENT Exam ENT: Present: mucous membranes moist - Routine Respiratory Exam Present: accessory muscle use (Even, unlabored) - Routine Cardiovascular Exam Present: S1, S2 - Routine Abdominal Exam Present: soft (Round, soft bowel sounds obese, occasional right upper quadrant discomfort but waxes and waning) - Urinary Catheter Management Indwelling Urethral Catheter Cath placed during this visit: yes, but has since been removed by the nurse Reason for continuing: Not indwelling catheter Insertion date: 03/04/18 Insertion time: 16:20 Removal date: 03/05/18 Removal time: 11:14 Results - Labs CBC & Chem 7: 03/07/18 07:39 03/07/18 07:39 Laboratory Results - last 24 hr 03/06/18 03/07/18 03/07/18 19:13 04:55 05:45 WBC 7.4 RBC 3.22 L Hgb 9.5 L Hct 28.7 L MCV 89.1 MCH 29.4 MCHC 33.0 RDW 14.2 Plt Count 200 MPV 8.0 Prelim Diff (Auto) Slide review pending Neut % (Auto) 80.2 H Lymph % (Auto) 10.2 Island % (Auto) 7.3 Eos % (Auto) 2.0 Baso % (Auto) 0.3 Neut # (Auto) 5.9 Lymph # (Auto) 0.8 L Island # (Auto) 0.5 Eos # (Auto) 0.2 Baso # (Auto) 0.0 WBC Differential . Diff Scan Auto diff confirmed Differential Comment . Platelet Estimate Normal Platelet Morphology Normal Sodium Potassium Chloride Carbon Dioxide Anion Gap BUN Creatinine Estimated GFR POC Glucose 207 H Random Glucose Calcium Magnesium Total Bilirubin AST ALT Alkaline Phosphatase Ammonia Total Creatine Kinase Total Protein Albumin Lipase CA 19-9 Antigen 173.5 H Phenytoin 03/07/18 03/07/18 03/07/18 05:45 05:45 07:39 WBC 7.6 RBC 3.13 L Hgb 9.4 L Hct 27.7 L MCV 88.5 MCH 29.9 MCHC 33.8 RDW 14.5 Plt Count 196 MPV 8.5 Prelim Diff (Auto) Neut % (Auto) Lymph % (Auto) Island % (Auto) Eos % (Auto) Baso % (Auto) Neut # (Auto) Lymph # (Auto) [place] # (Auto) Eos # (Auto) Baso # (Auto) WBC Differential Diff Scan Differential Comment Platelet Estimate Platelet Morphology Sodium 141 Potassium 2.9 L* Chloride 107 Carbon Dioxide 23.2 Anion Gap 11 BUN 8 Creatinine 0.75 Estimated GFR Greater than 89 POC Glucose Random Glucose 225 H Calcium 7.5 L Magnesium 1.7 Total Bilirubin 1.0 AST 95 H ALT 100 H Alkaline Phosphatase 950 H Ammonia 44 H Total Creatine Kinase 40 Total Protein 5.6 L Albumin 1.7 L Lipase CA 19-9 Antigen Phenytoin 3.0 L 03/07/18 03/07/18 07:39 12:55 WBC RBC Hgb Hct MCV MCH MCHC RDW Plt Count MPV Prelim Diff (Auto) Neut % (Auto) Lymph % (Auto) Island % (Auto) Eos % (Auto) Baso % (Auto) Neut # (Auto) Lymph # (Auto) Island # (Auto) Eos # (Auto) Baso # (Auto) WBC Differential Diff Scan Differential Comment Platelet Estimate Platelet Morphology Sodium 140 Potassium 2.9 L* Chloride 105 Carbon Dioxide 26.6 Anion Gap 8 BUN 8 Creatinine 0.77 Estimated GFR Greater than 89 POC Glucose 241 H Random Glucose 232 H Calcium 7.7 L Magnesium 1.7 Total Bilirubin 1.0 AST 88 H ALT 101 H Alkaline Phosphatase 927 H Ammonia Total Creatine Kinase Total Protein 5.7 L Albumin 1.7 L Lipase 386 CA 19-9 Antigen Phenytoin Microbiology 03/04/18 16:30 Catheterized Urine Urine Culture - Final No growth in 48 hours - Imaging Impressions Head CT 03/07/18 00:00 CONCLUSION: 1. Stable postoperative features in the posterior fossa with evidence of malacia in the right cerebellar hemisphere. 2. Senescent changes without acute abnormality. Specifically, no evidence for acute hemorrhage. . Head MRI 03/07/18 00:00 CONCLUSION: 1. Postoperative features of prior right occipital craniotomy and encephalomalacia in the right cerebellar hemisphere. 2. Senescent changes with mild periventricular ischemic white matter demyelination. 3. No acute abnormality. Specifically, no evidence for acute infarction. 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 Patient also has significant history of seizures, hypertension, coronary artery disease, depression and hyperlipidemia. Surgical history includes appendectomy, coronary artery stent placement and tonsillectomy. Patient is pleasant and cooperative unable to provide history for consultation. Call placed to Pedro Pena patient's son, unable to contact at this time. Patient was brought to [facility] emergency room in [place] on 03/04/2018 for complaints of nausea, diarrhea, vomiting and fever times 1 week. Patient was transferred to [facility] in [place] for further evaluation of possible gallstone pancreatitis. Upon consultation patient denies any present abdominal pain or tenderness. There is no reported further vomiting noted. Our service has been consulted to evaluate patient for possible gallstone pancreatitis. Upon admission to ER WBC 9.5 hemoglobin 10.3 hematocrit 31.0 platelet count 209 INR 1.3 total bilirubin 1.9 AST 130 ALT 154 with an alk phos of 872 and lipase level of 1635. Gallstone pancreatitis Patient transferred to [facility] Er ER from [place] to ER due to nausea, vomiting, diarrhea and fever for 6 days. (03/04) CT abdomen and pelvis revealed --> There is minimal basilar atelectasis in the lungs. Small hiatal hernia. No acute findings in the liver, spleen, adrenals, kidneys. There is mural thickening of the gallbladder with questionable mild pericholecystic inflammatory changes. There is also some mild infiltration of fat around the pancreas most characteristic of a mild pancreatitis. No free fluid or free air. No bowel obstruction. Byrd catheter present in bladder. Mural thickening of the gallbladder. Questionable mild inflammatory changes around the gallbladder and pancreas. Small hiatal hernia. No bowel obstruction, free fluid or free air. Byrd catheter in bladder. 03/05/2018 MRCP findings as follows--> Abnormal gallbladder with wall thickening , pericholecystic inflammation, and possibly trace pericholecystic fluid, findings concerning for cholecystitis. There is sludge within the gallbladder. Acute pancreatitis. Hemoglobin 9.6 hematocrit 29.7 total bilirubin 1.5 AST 94 ALT 122 alk phos 755. Based on the above findings we will await general surgery evaluation and recommendations. 03/06/2018 shows gradual trend down of bilirubin and LFTs. Bilirubin now 1.3, AST 93, ALT 110, hemoglobin 10.4. Byrd catheter still notes dark orange urine but adequate amounts. Patient is beginning to ask for liquids and feel appetite. We will trial clear liquids slow amounts as long as there is no nausea vomiting or increasing abdominal pain. Maintain IV hydration for now and if patient continues to improve may DC IV fluids tomorrow. Acute pancreatitis slow gradual improvement, first episode, check CA-19-9, rule out concern for cancer. Probably related to gallbladder sludge and inflammation. Will need follow-up outpatient with general surgery for possible cholecystectomy 03/07/2018 patient has some altered mental status secondary to his dementia but is much more controlled when is in the room. EEG this morning labs show mild trending down of LFTs AST 88, ALT 101, alkaline phosphatase mildly elevated at 927, lipase 386, bilirubin 1 no obvious bleeding current hemoglobin stable at 9.4 no leukocytosis. Marked elevated CA 199 173.5, patient will need EUS as outpatient initially discussed follow-up with general surgery for evaluation of cholecystectomy. Plan Diet clear liquids , as tolerated advance Recheck CT scan in the a.m. Outpatient EUS, Recheck lipase level in a.m. Continue to monitor bilirubin as well as LFTs for trending down, consider ER CP if labs start to trend back up or any acute change in patient's condition noted IV fluids hydration Patient was seen per myself and Dr. Arrieta, note was written on his behalf -
[2018-03-07 14:29] LABS: Hemoglobin A1c 8.4 % (4.3-6.0)
[2018-03-07] MEDS ORDERED: Dextrose 50% in Water 50 ML Vial IV.PUSH PRN (17:21)
[2018-03-07 18:12] LABS: Potassium 3.6 meq/L (3.5-5.1)
[2018-03-07 18:21] LABS: Phenytoin (Dilantin) 11.7 mcg/mL (10.0-20.0)
[2018-03-07] MEDS: Insulin NovoLOG Aspart Correctional Sugar Inj SQ SCH (20:15)
[2018-03-07] MEDS ORDERED: Phenytoin Sodium 100 MG Capsule PO SCH (21:00)
[2018-03-07] MEDS: Fosphenytoin Inj 200 MGPE in Sodium Chlor 0.9% Inj 50 ML IV.SIG SCH (21:41)
--- NOTE | 2018-03-07 22:08 | ECG ---
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
[2018-03-08] MEDS: Piperacil/Tazo 3.375 GM Premix 50 ML IV.SIG SCH ×2 (03:57→13:02)
[2018-03-08 05:48] LABS: Hematocrit 27.3 % (39.0-51.0); Hemoglobin 9.3 gm/dL (13.0-17.0); Mean Corpuscular HGB Conc 34.1 % (32.0-36.0); Mean Corpuscular Hemoglobin 30.1 pg (27.0-34.0); Mean Corpuscular Volume 88.2 fL (80.0-100.0); Mean Platelet Volume 8.2 fL (7.0-11.0); Platelet Count 232 th/mm3 (150-450); Red Cell Distribution Width 14.5 % (11.6-17.2)
[2018-03-08 06:11] LABS: Albumin 1.7 g/dL (3.4-5.0); Anion Gap 10 meq/L (5-15); Aspartate Aminotransferase 55 U/L (15-37); Blood Urea Nitrogen 6 mg/dL (7-18); Calcium 7.7 mg/dL (8.5-10.1); Chloride 109 meq/L (98-107); Glomerular Filtration Rate Greater Than 89 mL/min (>89); Glucose,Random 133 mg/dL (74-106); Lipase 315 U/L (73-393); Potassium 3.1 meq/L (3.5-5.1); Sodium 143 meq/L (136-145)
[2018-03-08 06:12] LABS: Alanine Aminotransferase 84 U/L (12-78)
[2018-03-08 06:14] LABS: Alkaline Phosphatase 850 U/L (45-117); Total Protein 5.7 g/dL (6.4-8.2)
--- NOTE | 2018-03-08 06:29 | MG ---
cc: Albaro Coley MD EEG NUMBER: [id number] INTERPRETATION: A 5-6 Hz posterior rhythm with increased artifact occurring, left hemispheric channels myogenic artifact. Admixed delta activity, polyfrequencies 10-50 microvolts. Occasional nonspecific tiny sharp transients. Limited driving with photic stimulation. Single lead EKG showing sinus rhythm. INTERPRETATION: Mild encephalopathy, artifact. Clinical correlation. MD RHYS Moe/dena , 05:58 AM , 06:02 AM
--- NOTE | 2018-03-08 08:22 | P.PNNEU ---
Subjective Subjective Comments: No cp, no dyspnea, no ordaz, no focal weakness, no vision loss. No reported seizures Active Medications: Active Medications Bisacodyl (Dulcolax Supp) 10 mg RECTAL DAILY PRN PRN Reason: SEVERE CONSITIPATION Dextrose (D50w Vial) 50 ml IV.PUSH UNSCH PRN PRN Reason: PER HYPOGLYCEMIA PROTOCOL Diphenhydramine HCl (Benadryl) 25 mg PO Q6H PRN PRN Reason: RASH Enalaprilat (Vasotec Inj) 1.25 mg IV.PUSH Q6H PRN PRN Reason: BLOOD PRESSURE MANAGEMENT Last Admin: 03/08/18 04:25 Dose: 1.25 mg Glucagon (Glucagon Inj) 1 mg OTHER UNSCH PRN PRN Reason: for Hypoglycemia Protocol Heparin Sodium (Porcine) (Heparin Inj) 5,000 units SQ Q12HR GINA Last Admin: 03/07/18 20:00 Dose: 5,000 units Hydralazine HCl (Apresoline) 20 mg PO TID GINA Last Admin: 03/07/18 17:56 Dose: 20 mg Sodium Chloride (Ns Inj) 500 mls @ 0 mls/hr IV.SIG BOLUS GINA Last Infusion: 03/04/18 17:31 Dose: Infused Sodium Chloride (Ns Inj) 500 mls @ 0 mls/hr IV.SIG BOLUS GINA Last Infusion: 03/04/18 20:08 Dose: Infused Metronidazole/Sodium Chloride (Flagyl 500 Mg Inj) 100 mls @ 100 mls/hr IV.SIG Q8H G[facility] Last Infusion: 03/08/18 00:25 Dose: Infused Sodium Chloride (Ns Inj) 1,000 mls @ 50 mls/hr IV.CONT .Q20H GINA Last Admin: 03/07/18 10:41 Dose: 50 mls/hr Fosphenytoin Sodium 200 mgpe/ (Sodium Chloride) 54 mls @ 216 mls/hr IV.SIG Q12HR GINA Last Infusion: 03/07/18 21:56 Dose: Infused Levetiracetam 500 mg/ Sodium (Chloride) 105 mls @ 400 mls/hr IV.SIG Q12H GINA Last Infusion: 03/08/18 00:11 Dose: Infused Piperacillin/Tazobactam/Dextrose (Zosyn 3.375 Gm Premix) 50 mls @ 100 mls/hr IV.SIG Q6H GINA Last Infusion: 03/08/18 07:42 Dose: Infused Insulin Aspart (Novolog Insulin Correctional Sugar Inj) 0 unit SQ ACHS [facility]; Protocol Last Admin: 03/07/18 20:15 Dose: 7 unit Lactulose (Lactulose Liq) 30 ml PO DAILY PRN PRN Reason: SEVERE CONSITIPATION Lisinopril (Prinivil) 20 mg PO BID [facility] Last Admin: 03/07/18 20:00 Dose: 20 mg Lorazepam (Ativan Inj) 1 mg IV.PUSH Q10M PRN PRN Reason: SEE LABEL COMMENTS Metoprolol Tartrate (Lopressor) 50 mg PO BID [facility] Last Admin: 03/07/18 20:00 Dose: 50 mg Ondansetron HCl (Zofran Inj) 4 mg IV.PUSH Q6H PRN PRN Reason: NAUSEA OR VOMITING Sennosides (Senokot) 17.2 mg PO Q12H PRN PRN Reason: Moderate Constipation Sertraline HCl (Zoloft) 100 mg PO BID [facility] Last Admin: 03/07/18 20:00 Dose: 100 mg Sodium Chloride (Ns Flush) 2 ml IV.FLUSH PRN PRN PRN Reason: FLUSH AFTER USING IV ACCESS Allergies/Adverse Reactions: Allergies Allergy/AdvReac Type Severity Reaction Status Date / Time penicillin G Allergy Severe RASHES Verified 03/04/18 14:00 Sulfa (Sulfonamide Allergy Severe Rash Verified 03/04/18 14:00 Antibiotics) Review of Systems All other systems reviewed negative except as stated in HPI Physical Exam Vital signs: Vital Signs 03/07/18 12:00 03/07/18 16:00 03/07/18 19:52 Temperature 99.2 F 97.3 F L Pulse Rate 78 64 72 Respiratory Rate 18 18 Blood Pressure 198/88 H 197/89 H Pulse Oximetry 97 97 03/07/18 20:00 03/07/18 23:42 03/08/18 00:00 Temperature 97.9 F 98.2 F Pulse Rate 74 65 69 Respiratory Rate 17 17 Blood Pressure 159/70 H 159/74 H Pulse Oximetry 97 96 03/08/18 04:00 Temperature 98.9 F Pulse Rate 65 Respiratory Rate 17 Blood Pressure 184/81 H Pulse Oximetry 98 Intake & Output 03/07/18 03/08/18 03/08/18 18:59 06:59 18:59 Intake Total 1155 / 1155 789 / 789 100 / 100 Output Total 350 / 350 Balance 1155 / 1155 439 / 439 100 / 100 Weight 83.2 kg Intake: IV 1155 / 1155 309 / 309 100 / 100 D5W/1/2 NS Inj 1,000 ML @ 50 500 / 500 mls/hr IV.CONT .Q20H [facility]INA Rx#: [id number] Cerebyx Inj 200 MGPE In NS Inj 54 / 54 50 ML @ 216 mls/hr IV.SIG Q12HR [facility] Rx#:[id number] Zosyn 3.375 GM Premix 50 ML @ 50 / 50 50 / 50 50 / 50 100 mls/hr IV.SIG Q6H [facility] Rx#: [id number] KCl 10 mEq Premix Inj 10 meq In 300 / 300 100 ml @ 100 mls/hr IV.SIG Q1H [facility] Rx#:[id number] Keppra Inj 500 MG In NS Inj 100 105 / 105 105 / 105 ML @ 400 mls/hr IV.SIG Q12H [facility] Rx#:[id number] Flagyl 500 MG Inj 100 ML @ 100 200 / 200 100 / 100 mls/hr IV.SIG Q8H [facility] Rx#: [id number] Oral 480 / 480 Output: Urine 350 / 350 Other: Date of Last Bowel Movement 03/07/18 # Incontinent Bowel Movements 1 Narrative: GENERAL: in NAD, SKIN: Warm and dry. HEAD: Atraumatic. Normocephalic. EYES: Pupils sluggishly reactive ENT: No nasal bleeding or discharge. Mucous membranes pink and moist. NECK: Trachea midline. No JVD. CARDIOVASCULAR: Regular rate and rhythm. RESPIRATORY: No accessory muscle use. GASTROINTESTINAL: Abdomen soft nontender MUSCULOSKELETAL: Extremities without clubbing, cyanosis, or edema. No obvious deformities. Neurology: Alert, oriented to self only, follows, pleasant, smiles, visual cox full, sluggishly reactive pupils, no facial asymmetry, moving upper extremity to gravity, bilateral lower extremity weakness but able to raise to gravity, trace reflexes plantarflex response withdraws to tactile 4 extremity gait not examined secondary to fall risk PSYCHIATRIC: Calm. - Constitutional no acute distress - Routine HEENT Exam Head: Present: normocephalic - Urinary Catheter Management Indwelling Urethral Catheter Cath placed during this visit: yes, but has since been removed by the nurse Reason for continuing: Not indwelling catheter Insertion date: 03/04/18 Insertion time: 16:20 Removal date: 03/05/18 Removal time: 11:14 Objective Laboratory Results - last 24 hr 03/07/18 03/07/18 03/07/18 07:39 07:39 07:39 WBC 7.6 RBC 3.13 L Hgb 9.4 L Hct 27.7 L MCV 88.5 MCH 29.9 MCHC 33.8 RDW 14.5 Plt Count 196 MPV 8.5 Sodium 140 Potassium 2.9 L* Chloride 105 Carbon Dioxide 26.6 Anion Gap 8 BUN 8 Creatinine 0.77 Estimated GFR Greater than 89 POC Glucose Random Glucose 232 H Hemoglobin A1c 8.4 H Calcium 7.7 L Magnesium 1.7 Total Bilirubin 1.0 AST 88 H ALT 101 H Alkaline Phosphatase 927 H Total Protein 5.7 L Albumin 1.7 L Lipase 386 Phenytoin 03/07/18 03/07/18 03/07/18 12:55 17:30 17:51 WBC RBC Hgb Hct MCV MCH MCHC RDW Plt Count MPV Sodium Potassium 3.6 Chloride Carbon Dioxide Anion Gap BUN Creatinine Estimated GFR POC Glucose 241 H 261 H Random Glucose Hemoglobin A1c Calcium Magnesium Total Bilirubin AST ALT Alkaline Phosphatase Total Protein Albumin Lipase Phenytoin 11.7 03/07/18 03/07/18 03/08/18 20:03 23:56 05:20 WBC 9.0 RBC 3.10 L Hgb 9.3 L Hct 27.3 L MCV 88.2 MCH 30.1 MCHC 34.1 RDW 14.5 Plt Count 232 MPV 8.2 Sodium Potassium Chloride Carbon Dioxide Anion Gap BUN Creatinine Estimated GFR POC Glucose 309 H 137 H Random Glucose Hemoglobin A1c Calcium Magnesium Total Bilirubin AST ALT Alkaline Phosphatase Total Protein Albumin Lipase Phenytoin 03/08/18 05:20 WBC RBC Hgb Hct MCV MCH MCHC RDW Plt Count MPV Sodium 143 Potassium 3.1 L Chloride 109 H Carbon Dioxide 24.0 Anion Gap 10 BUN 6 L Creatinine 0.67 Estimated GFR Greater than 89 POC Glucose Random Glucose 133 H Hemoglobin A1c Calcium 7.7 L Magnesium Total Bilirubin 0.9 AST 55 H ALT 84 H Alkaline Phosphatase 850 H Total Protein 5.7 L Albumin 1.7 L Lipase 315 Phenytoin 11.0 Microbiology 03/04/18 16:30 Urine Culture - Final Catheterized Urine No growth in 48 hours Review/Management - Diagnosis (1) Seizures Code(s): R56.9 - Unspecified convulsions Status: Acute Current Visit: Yes (2) Status post craniectomy Code(s): Z98.890 - Other specified postprocedural states Status: Acute Current Visit: Yes (3) Encephalopathy Code(s): G93.40 - Encephalopathy, unspecified Status: Acute Current Visit: Yes - Review/Management Plan: Breakthrough seizure secondary to subtherapeutic anticonvulsant levels related to poor p.o. intake Neuro examination compromised exam secondary lethargy which may be secondary to Ativan given overnight Recommendation More alert and follows. Disoriented. Possible postictal encephalopathy versus underlying cognitive impairment Dilantin level therapeutic EEG; no seizure activity Seizure fall precautions No driving
[2018-03-08] MEDS: Metoprolol Tartrate 50 MG Tablet PO SCH ×2 (09:24→21:00)
[2018-03-08] MEDS: Heparin - SQ 10,000 UNITS/ML Vial SQ SCH ×2 (09:24→21:01)
[2018-03-08] MEDS: Insulin NovoLOG Aspart Correctional Sugar Inj SQ SCH ×4 (09:24→21:08)
[2018-03-08] MEDS: Sertraline 100 MG Tablet PO SCH ×2 (09:24→21:00)
[2018-03-08] MEDS: hydrALAZINE 10 MG Tablet PO SCH ×3 (09:24→17:40)
[2018-03-08] MEDS: Lisinopril 20 MG Tablet PO SCH ×2 (09:24→21:00)
--- NOTE | 2018-03-08 10:38 | CT ---
EXAM DATE: 03/08/2018 9:42 AM EDT AGE/SEX: 77 years / Male INDICATIONS: Abdominal pain. Evaluate for mass. CLINICAL DATA: This is the patient's initial encounter. Patient reports that signs and symptoms have been present for 1 day and indicates a pain score of 5/10. MEDICAL/SURGICAL HISTORY: Cardiovascular disease. Seizures. Hypertension. Brain tumor, arter iovenous malformation. Appendectomy. Coronary artery stent. ORAL CONTRAST: No oral contrast ingested. RADIATION DOSE: 14.71 CTDI (mGy) COMPARISON: [facility], CT ABDOMEN & PELVIS W CONTRAST, 03/04/2018. . TECHNIQUE: Multiple contiguous axial images were obtained through the abdomen and pelvis following b olus infusion of 95 ml Omnipaque 350 (iohexol) nonionic water-soluble contrast as a single exam dos e. No oral contrast ingested. Using automated exposure control and adjustment of the mA and/or kV ac cording to patient size, radiation dose was kept as low as reasonably achievable to obtain optimal di agnostic quality images. DICOM format image data is available electronically for review and comparis on. FINDINGS: LOWER LUNGS: Trace right pleural effusion with minimal by basilar airspace consolidation. Circumfere ntial thickening of the distal esophagus. LIVER: The liver has a homogeneous density without space-occupying lesion. There is no dilation of t he biliary tree. There is again diffuse gallbladder wall thickening with mild pericholecystic fluid s imilar to prior CT exam. SPLEEN: Homogeneous density without enlargement. PANCREAS: Unremarkable without mass or calcification. KIDNEYS: Kidneys demonstrate symmetrical enhancement and are symmetrical in size without evidence fo r radiopaque renal calculi or hydronephrosis. Subcentimeter hypodense lesions in the superior pole of the left kidney are too small to fully characterize. ADRENAL GLANDS: Unremarkable. AORTA: Xochitl-aneurysmal. BOWEL/MESENTERY: Small hiatal hernia. Bowel loops are stable in appearance without evidence for smal l bowel dilatation. No free fluid or drainable fluid collections. No free air. ABDOMINAL WALL: Intact. RETROPERITONEUM: No evidence of adenopathy in the retrocrural, para-aortic, or deep pelvic regions. BLADDER: Contours are smooth. REPRODUCTIVE: Nonspecific enlargement of the prostate gland. BONY STRUCTURES: Degenerative changes of the lumbar spine. CONCLUSION: 1. Stable CT examination in comparison to 03/04/2018. 2. Persistent abnormal appearance of the gallbladder as described on recent CT abdomen and MRCP repo rts. 3. Small hiatal hernia with mild circumferential distal esophageal wall thickening. 4. Trace right pleural effusion with bibasilar atelectasis. 5. Nonspecific prostate enlargement. Electronically signed by: Nikhil Sawyer MD 03/08/2018 10:37 AM EDT
--- NOTE | 2018-03-08 10:59 | P.PN ---
Subjective Interval history: Follow-up for suspected gallstones/cholecystitis-patient seen and examined. Patient awakes to voice, oriented to self. No complaint of pain. No nausea, no vomiting. Had repeat CT of the abdomen. No fever. Having diarrhea, loose brown. Physical Exam Vital signs: Vital Signs 03/07/18 12:00 03/07/18 16:00 03/07/18 19:52 Temperature 99.2 F 97.3 F L Pulse Rate 78 64 72 Respiratory Rate 18 18 Blood Pressure 198/88 H 197/89 H Pulse Oximetry 97 97 03/07/18 20:00 03/07/18 23:42 03/08/18 00:00 Temperature 97.9 F 98.2 F Pulse Rate 74 65 69 Respiratory Rate 17 17 Blood Pressure 159/70 H 159/74 H Pulse Oximetry 97 96 03/08/18 04:00 03/08/18 08:00 Temperature 98.9 F 97.8 F Pulse Rate 65 69 Respiratory Rate 17 19 Blood Pressure 184/81 H 178/77 H Pulse Oximetry 98 98 Intake & Output 03/07/18 03/08/18 03/08/18 18:59 06:59 18:59 Intake Total 1155 / 1155 789 / 789 750 / 750 Output Total 350 / 350 Balance 1155 / 1155 439 / 439 750 / 750 Weight 83.2 kg Intake: IV 1155 / 1155 309 / 309 750 / 750 D5W/1/2 NS Inj 1,000 ML @ 50 500 / 500 mls/hr IV.CONT .Q20H [facility] Rx#: [id number] NS Inj 1,000 ML @ 50 mls/hr IV. 650 / 650 CONT .Q20H [facility] Rx#:[id number] Cerebyx Inj 200 MGPE In NS Inj 54 / 54 50 ML @ 216 mls/hr IV.SIG Q12HR [facility] Rx#:[id number] Zosyn 3.375 GM Premix 50 ML @ 50 / 50 50 / 50 50 / 50 100 mls/hr IV.SIG Q6H [facility] Rx#: [id number] KCl 10 mEq Premix Inj 10 meq In 300 / 300 100 ml @ 100 mls/hr IV.SIG Q1H [facility] Rx#:[id number] Keppra Inj 500 MG In NS Inj 100 105 / 105 105 / 105 ML @ 400 mls/hr IV.SIG Q12H [facility] Rx#:[id number] Flagyl 500 MG Inj 100 ML @ 100 200 / 200 100 / 100 mls/hr IV.SIG Q8H [facility] Rx#: [id number] Oral 480 / 480 Output: Urine 350 / 350 Other: Date of Last Bowel Movement 03/07/18 # Incontinent Bowel Movements 1 Narrative: GENERAL: This is an elderly male patient, in no apparent distress. SKIN: No rashes or lesions. Cool and dry. Slight jaundice noted. Pale. HEAD: Normocephalic. EYES: No injection or drainage. ENT: Nose without bleeding, purulent drainage. NECK: Trachea midline. No JVD. CARDIOVASCULAR: Regular rate and rhythm without murmurs, gallops, or rubs. RESPIRATORY: Clear to auscultation. Breath sounds equal bilaterally. No wheezes , rales, or rhonchi. GASTROINTESTINAL: Normal bowel sounds. Abdomen soft, non-tender, nondistended. No guarding. MUSCULOSKELETAL: Extremities without clubbing, cyanosis. NEUROLOGICAL: More awake today, oriented to self, provides name. Follow simple commands. No focal deficits. - Urinary Catheter Management Indwelling Urethral Catheter Cath placed during this visit: yes, but has since been removed by the nurse Reason for continuing: Not indwelling catheter Insertion date: 03/04/18 Insertion time: 16:20 Removal date: 03/05/18 Removal time: 11:14 Results - Labs CBC & Chem 7: 03/08/18 05:20 03/08/18 05:20 Laboratory Results - last 24 hr 03/07/18 03/07/18 03/07/18 07:39 12:55 17:30 WBC RBC Hgb Hct MCV MCH MCHC RDW Plt Count MPV Sodium Potassium 3.6 Chloride Carbon Dioxide Anion Gap BUN Creatinine Estimated GFR POC Glucose 241 H Random Glucose Hemoglobin A1c 8.4 H Calcium Total Bilirubin AST ALT Alkaline Phosphatase Total Protein Albumin Lipase Phenytoin 11.7 03/07/18 03/07/18 03/07/18 17:51 20:03 23:56 WBC RBC Hgb Hct MCV MCH MCHC RDW Plt Count MPV Sodium Potassium Chloride Carbon Dioxide Anion Gap BUN Creatinine Estimated GFR POC Glucose 261 H 309 H 137 H Random Glucose Hemoglobin A1c Calcium Total Bilirubin AST ALT Alkaline Phosphatase Total Protein Albumin Lipase Phenytoin 03/08/18 03/08/18 03/08/18 05:20 05:20 08:19 WBC 9.0 RBC 3.10 L Hgb 9.3 L Hct 27.3 L MCV 88.2 MCH 30.1 MCHC 34.1 RDW 14.5 Plt Count 232 MPV 8.2 Sodium 143 Potassium 3.1 L Chloride 109 H Carbon Dioxide 24.0 Anion Gap 10 BUN 6 L Creatinine 0.67 Estimated GFR Greater than 89 POC Glucose 146 H Random Glucose 133 H Hemoglobin A1c Calcium 7.7 L Total Bilirubin 0.9 AST 55 H ALT 84 H Alkaline Phosphatase 850 H Total Protein 5.7 L Albumin 1.7 L Lipase 315 Phenytoin 11.0 Microbiology 03/04/18 16:30 Catheterized Urine Urine Culture - Final No growth in 48 hours - Imaging Impressions Head CT 03/07/18 00:00 CONCLUSION: 1. Stable postoperative features in the posterior fossa with evidence of malacia in the right cerebellar hemisphere. 2. Senescent changes without acute abnormality. Specifically, no evidence for acute hemorrhage. . Head MRI 03/07/18 00:00 CONCLUSION: 1. Postoperative features of prior right occipital craniotomy and encephalomalacia in the right cerebellar hemisphere. 2. Senescent changes with mild periventricular ischemic white matter demyelination. 3. No acute abnormality. Specifically, no evidence for acute infarction. Abdomen/Pelvis CT 03/08/18 08:00 CONCLUSION: 1. Stable CT examination in comparison to 03/04/2018. 2. Persistent abnormal appearance of the gallbladder as described on recent CT abdomen and MRCP reports. 3. Small hiatal hernia with mild circumferential distal esophageal wall thickening. 4. Trace right pleural effusion with bibasilar atelectasis. 5. Nonspecific prostate enlargement. Assessment and Plan - Assessment (1) Gallstone pancreatitis Code(s): K85.10 - Biliary acute pancreatitis without necrosis or infection Status: Acute (2) Hypokalemia Code(s): E87.6 - Hypokalemia Status: Acute (3) Diarrhea Code(s): R19.7 - Diarrhea, unspecified Status: Acute (4) Diet-controlled diabetes mellitus Code(s): E11.9 - Type 2 diabetes mellitus without complications Status: Chronic (5) Seizures Code(s): R56.9 - Unspecified convulsions Status: Chronic (6) Status post craniectomy Code(s): Z98.890 - Other specified postprocedural states Status: Chronic (7) Encephalopathy Code(s): G93.40 - Encephalopathy, unspecified Status: Acute - Plan Mr. Pena is a 77 y/o male with a history of cerebellar AVM s/p right suboccipital craniectomy for resection of cerebellar mass on 03/30/15, seizures , hypertension, CAD, depression, and hyperlipidemia who presented to the ER in [place] for nausea, diarrhea, vomiting, and fevers for 6 days. The patient was found to have findings suspicious for gallstone pancreatitis and was transferred to [facility] under the hospitalist service for further evaluation and management. Suspected gallstone pancreatitis -Abdomen/pelvis CT shows mural thickening of gallbladder, mild inflammatory changes around gallbladder and pancreas, no bowel obstruction -MRCP 03/05/2018, findings normal gallbladder with wall thickening, pericholecystic inflammation, possibly trace pericholecystic fluids, findings concerning for cholecystitis. There is large within the gallbladder. Acute pancreatitis -LFTs continue to trend down. Lipase 386. -Appreciate GI input. Since first episode of pancreatitis, CVA 199 was ordered -173.5. Possible elevation due to sludge in gallbladder. Per GI, recommends supportive care,allow labs to trend down and surgery later. -Continue with clear liquid diet -Cautious hydration Zofran 4 milligrams IV push every 6 hours as needed for nausea or vomiting -Continue Zosyn 3.3751 g IV every 6 as well as Flagyl 500 mg IV every 8 -Follow labs in the morning -Appreciate surgical input, has signed off. prefers medical management at this time. If symptoms recur, then will reconsider surgery LFTs and lipase trending down -Advance to full liquid Diarrhea, patient on antibiotics We will check stools for C. difficile We will stop Zosyn, continue Flagyl Seizures Halicat today, had seizure, approximately 5 minutes. Was given Ativan. Dilantin level subtherapeutic 3-he has been nauseous and vomiting. -Continue Keppra -level pending -Continue with Dilantin 200 mg IV twice daily -Continue Keppra 500 mg IV twice daily -Dilantin level trending up, 11 now Neurology consult pending EEG mild encephalopathy CT and brain MRI negative Continue with seizure precautions Hyperglycemia endorses history of diabetes, however he had been manage with diet Was on glyburide and metformin. Blood glucose has been noted elevated initially 416 on BMP, today 232 Hemoglobin A1c 8.4 Continue with Accu-Cheks before meals and at bedtime and insulin therapy as needed -We will continue to monitor, may need to be restarted on either glyburide or metformin, however patient's p.o. intake at this time is unpredictable. We will continue with subcu insulin for now. Hypokalemia -Potassium 3.1, replace History of coronary artery disease with stents -Continue metoprolol -Continue to hold Plavix for now. History of hypertension Blood pressure was elevated, it is slowly improving -Continue lisinopril -cont. Vasotec PRN -Continue with hydralazine 10 mg po TID Heparin 5000 units subcu for DVT prophylaxis PT and OT evaluation Repeat labs in the morning Follow-up on stool results Possible discharge Thursday if diarrhea resolved. Code Status: Full code Discussed Condition With: RN, patient and his , case management, Dr. Martinez Discharge Planning: Possible discharge if diarrhea resolves, Thursday. Home with caregiver (3) Diarrhea Qualifiers: Diarrhea type: unspecified type Qualified Code(s): R19.7 - Diarrhea, unspecified
[2018-03-08] MEDS: Fosphenytoin Inj 200 MGPE in Sodium Chlor 0.9% Inj 50 ML IV.SIG SCH ×2 (12:06→21:00)
[2018-03-08] MEDS: Sod Chloride 0.9% Inj 1,000 ML IV.CONT SCH (12:44)
--- NOTE | 2018-03-08 13:10 | P.PNGS ---
Subjective Patient reports: feels better, tolerating liquids well, afebrile (denies abd pain, tolerating diet. no N/V) Physical Exam Vital signs: Vital Signs 03/07/18 16:00 03/07/18 19:52 03/07/18 20:00 Temperature 97.3 F L 97.9 F Pulse Rate 64 72 74 Respiratory Rate 18 17 Blood Pressure 197/89 H 159/70 H Pulse Oximetry 97 97 03/07/18 23:42 03/08/18 00:00 03/08/18 04:00 Temperature 98.2 F 98.9 F Pulse Rate 65 69 65 Respiratory Rate 17 17 Blood Pressure 159/74 H 184/81 H Pulse Oximetry 96 98 03/08/18 08:00 03/08/18 12:00 Temperature 97.8 F 97.6 F Pulse Rate 69 67 Respiratory Rate 19 17 Blood Pressure 178/77 H 130/70 Pulse Oximetry 98 98 Intake & Output 03/07/18 03/08/18 03/08/18 18:59 06:59 18:59 Intake Total 1155 / 1155 789 / 789 904 / 904 Output Total 350 / 350 Balance 1155 / 1155 439 / 439 904 / 904 Weight 83.2 kg Intake: IV 1155 / 1155 309 / 309 904 / 904 D5W/1/2 NS Inj 1,000 ML @ 50 500 / 500 mls/hr IV.CONT .Q20H [facility] Rx#: [id number] NS Inj 1,000 ML @ 50 mls/hr IV. 650 / 650 CONT .Q20H [facility] Rx#:[id number] Cerebyx Inj 200 MGPE In NS Inj 54 / 54 54 / 54 50 ML @ 216 mls/hr IV.SIG Q12HR [facility] Rx#:[id number] Zosyn 3.375 GM Premix 50 ML @ 50 / 50 50 / 50 50 / 50 100 mls/hr IV.SIG Q6H [facility] Rx#: [id number] KCl 10 mEq Premix Inj 10 meq In 300 / 300 100 ml @ 100 mls/hr IV.SIG Q1H [facility] Rx#:[id number] Keppra Inj 500 MG In NS Inj 100 105 / 105 105 / 105 ML @ 400 mls/hr IV.SIG Q12H [facility] Rx#:[id number] Flagyl 500 MG Inj 100 ML @ 100 200 / 200 100 / 100 100 / 100 mls/hr IV.SIG Q8H [facility] Rx#: [id number] Oral 480 / 480 Output: Urine 350 / 350 Other: Date of Last Bowel Movement 03/07/18 # Incontinent Bowel Movements 1 - Routine Abdominal Exam Present: soft, normoactive bowel sounds - Urinary Catheter Management Indwelling Urethral Catheter Cath placed during this visit: yes, but has since been removed by the nurse Reason for continuing: Not indwelling catheter Insertion date: 03/04/18 Insertion time: 16:20 Removal date: 03/05/18 Removal time: 11:14 Results - Labs 03/08/18 05:20 03/08/18 05:20 Laboratory Results - last 24 hr 03/07/18 03/07/18 03/07/18 07:39 17:30 17:51 WBC RBC Hgb Hct MCV MCH MCHC RDW Plt Count MPV Sodium Potassium 3.6 Chloride Carbon Dioxide Anion Gap BUN Creatinine Estimated GFR POC Glucose 261 H Random Glucose Hemoglobin A1c 8.4 H Calcium Total Bilirubin AST ALT Alkaline Phosphatase Total Protein Albumin Lipase Phenytoin 11.7 03/07/18 03/07/18 03/08/18 20:03 23:56 05:20 WBC 9.0 RBC 3.10 L Hgb 9.3 L Hct 27.3 L MCV 88.2 MCH 30.1 MCHC 34.1 RDW 14.5 Plt Count 232 MPV 8.2 Sodium Potassium Chloride Carbon Dioxide Anion Gap BUN Creatinine Estimated GFR POC Glucose 309 H 137 H Random Glucose Hemoglobin A1c Calcium Total Bilirubin AST ALT Alkaline Phosphatase Total Protein Albumin Lipase Phenytoin 03/08/18 03/08/18 03/08/18 05:20 08:19 12:09 WBC RBC Hgb Hct MCV MCH MCHC RDW Plt Count MPV Sodium 143 Potassium 3.1 L Chloride 109 H Carbon Dioxide 24.0 Anion Gap 10 BUN 6 L Creatinine 0.67 Estimated GFR Greater than 89 POC Glucose 146 H 208 H Random Glucose 133 H Hemoglobin A1c Calcium 7.7 L Total Bilirubin 0.9 AST 55 H ALT 84 H Alkaline Phosphatase 850 H Total Protein 5.7 L Albumin 1.7 L Lipase 315 Phenytoin 11.0 - Imaging Imaging: ITS Impressions Chest X-Ray 03/04/18 15:28 CONCLUSION: Negative examination. Cholangiopancreatography MRI 03/05/18 00:00 CONCLUSION: 1. Abnormal gallbladder with wall thickening, pericholecystic inflammation, and possibly trace pericholecystic fluid, findings concerning for cholecystitis. There is sludge within the gallbladder. 2. Acute pancreatitis. Head CT 03/07/18 00:00 CONCLUSION: 1. Stable postoperative features in the posterior fossa with evidence of malacia in the right cerebellar hemisphere. 2. Senescent changes without acute abnormality. Specifically, no evidence for acute hemorrhage. . Head MRI 03/07/18 00:00 CONCLUSION: 1. Postoperative features of prior right occipital craniotomy and encephalomalacia in the right cerebellar hemisphere. 2. Senescent changes with mild periventricular ischemic white matter demyelination. 3. No acute abnormality. Specifically, no evidence for acute infarction. Abdomen/Pelvis CT 03/08/18 08:00 CONCLUSION: 1. Stable CT examination in comparison to 03/04/2018. 2. Persistent abnormal appearance of the gallbladder as described on recent CT abdomen and MRCP reports. 3. Small hiatal hernia with mild circumferential distal esophageal wall thickening. 4. Trace right pleural effusion with bibasilar atelectasis. 5. Nonspecific prostate enlargement. Assessment and Plan - Assessment (1) Gallstone pancreatitis Code(s): K85.10 - Biliary acute pancreatitis without necrosis or infection Status: Acute - Plan I had a discussion with /caregiver at bedside. She does not want him to have surgery unless absolutely necessary. She understands risks of observation. Will advance diet and recheck labs. If he has a second attack will reconsider surgery. LAbs and clinical exam have improved. Will continue medical management. Will sign off, please call if condition worsens or patient's wants him to have surgery. FU in office prn CHICO KNOX MD FACS
--- NOTE | 2018-03-08 16:34 | P.PNGI ---
Subjective Interval history: Patient laying supine in bed, awake alert oriented x2. Denies any discomfort, tolerating p.o. intake well per spouse <Rafia Echeverria - Last Filed: 03/08/18 16:26> Physical Exam Vital signs: Vital Signs 03/07/18 19:52 03/07/18 20:00 03/07/18 23:42 Temperature 97.9 F Pulse Rate 72 74 65 Respiratory Rate 17 Blood Pressure 159/70 H Pulse Oximetry 97 03/08/18 00:00 03/08/18 04:00 03/08/18 08:00 Temperature 98.2 F 98.9 F 97.8 F Pulse Rate 69 65 69 Respiratory Rate 17 17 19 Blood Pressure 159/74 H 184/81 H 178/77 H Pulse Oximetry 96 98 98 03/08/18 12:00 Temperature 97.6 F Pulse Rate 67 Respiratory Rate 17 Blood Pressure 130/70 Pulse Oximetry 98 Intake & Output 03/07/18 03/08/18 03/08/18 18:59 06:59 18:59 Intake Total 1155 / 1155 789 / 789 1059 / 1059 Output Total 350 / 350 Balance 1155 / 1155 439 / 439 1059 / 1059 Weight 83.2 kg Intake: IV 1155 / 1155 309 / 309 1059 / 1059 D5W/1/2 NS Inj 1,000 ML @ 50 500 / 500 mls/hr IV.CONT .Q20H [facility] Rx#: [id number] NS Inj 1,000 ML @ 50 mls/hr IV. 650 / 650 CONT .Q20H [facility] Rx#:[id number] Cerebyx Inj 200 MGPE In NS Inj 54 / 54 54 / 54 50 ML @ 216 mls/hr IV.SIG Q12HR [facility] Rx#:[id number] Zosyn 3.375 GM Premix 50 ML @ 50 / 50 50 / 50 100 / 100 100 mls/hr IV.SIG Q6H [facility] Rx#: [id number] KCl 10 mEq Premix Inj 10 meq In 300 / 300 100 ml @ 100 mls/hr IV.SIG Q1H [facility] Rx#:[id number] Keppra Inj 500 MG In NS Inj 100 105 / 105 105 / 105 105 / 105 ML @ 400 mls/hr IV.SIG Q12H [facility] Rx#:[id number] Flagyl 500 MG Inj 100 ML @ 100 200 / 200 100 / 100 100 / 100 mls/hr IV.SIG Q8H [facility] Rx#: [id number] Oral 480 / 480 Output: Urine 350 / 350 Other: Date of Last Bowel Movement 03/07/18 03/08/18 # Incontinent Bowel Movements 1 - Constitutional no acute distress - Routine HEENT Exam Head: Present: normocephalic - Routine Respiratory Exam Present: CTA bilaterally - Routine Cardiovascular Exam Present: S1, S2 - Routine Abdominal Exam Present: soft, normoactive bowel sounds. Absent: tenderness, distended, guarding, firm - Routine Extremities Exam Absent: edema - Routine Skin Exam Present: dry, warm - Routine Neurological Exam Present: alert - Routine Psychiatric Exam Present: cooperative - Urinary Catheter Management Indwelling Urethral Catheter Cath placed during this visit: yes, but has since been removed by the nurse Reason for continuing: Not indwelling catheter Insertion date: 03/04/18 Insertion time: 16:20 Removal date: 03/05/18 Removal time: 11:14 <Rafia Echeverria - Last Filed: 03/08/18 16:26> Vital signs: Vital Signs 03/07/18 23:42 03/08/18 00:00 03/08/18 04:00 Temperature 98.2 F 98.9 F Pulse Rate 65 69 65 Respiratory Rate 17 17 Blood Pressure 159/74 H 184/81 H Pulse Oximetry 96 98 03/08/18 08:00 03/08/18 12:00 03/08/18 16:00 Temperature 97.8 F 97.6 F 98.3 F Pulse Rate 69 67 66 Respiratory Rate 19 17 16 Blood Pressure 178/77 H 130/70 155/70 H Pulse Oximetry 98 98 97 03/08/18 20:00 Temperature 98.1 F Pulse Rate 76 Respiratory Rate 16 Blood Pressure 152/69 H Pulse Oximetry 97 Intake & Output 03/08/18 03/08/18 03/09/18 06:59 18:59 06:59 Intake Total 789 / 789 1954 / 1954 404 / 404 Output Total 350 / 350 800 / 800 Balance 439 / 439 1154 / 1154 404 / 404 Weight 83.2 kg Intake: IV 309 / 309 1159 / 1159 404 / 404 NS Inj 1,000 ML @ 50 mls/hr IV. 650 / 650 350 / 350 CONT .Q20H [facility] Rx#:[id number] Cerebyx Inj 200 MGPE In NS Inj 54 / 54 54 / 54 54 / 54 50 ML @ 216 mls/hr IV.SIG Q12HR [facility] Rx#:[id number] Zosyn 3.375 GM Premix 50 ML @ 50 / 50 100 / 100 100 mls/hr IV.SIG Q6H [facility] Rx#: [id number] Keppra Inj 500 MG In NS Inj 100 105 / 105 105 / 105 ML @ 400 mls/hr IV.SIG Q12H [facility] Rx#:[id number] Flagyl 500 MG Inj 100 ML @ 100 100 / 100 200 / 200 mls/hr IV.SIG Q8H [facility] Rx#: [id number] Oral 480 / 480 555 / 555 Oral Supplement 240 / 240 Output: Urine 350 / 350 800 / 800 Other: Date of Last Bowel Movement 03/07/18 03/08/18 03/08/18 # Bowel Movements 3 # Incontinent Bowel Movements 1 - Urinary Catheter Management Indwelling Urethral Catheter Cath placed during this visit: no <Meng Loyola E - Last Filed: 03/08/18 22:56> Results - Labs CBC & Chem 7: 03/08/18 05:20 03/08/18 05:20 Laboratory Results - last 24 hr 03/07/18 03/07/18 03/07/18 17:30 17:51 20:03 WBC RBC Hgb Hct MCV MCH MCHC RDW Plt Count MPV Sodium Potassium 3.6 Chloride Carbon Dioxide Anion Gap BUN Creatinine Estimated GFR POC Glucose 261 H 309 H Random Glucose Calcium Total Bilirubin AST ALT Alkaline Phosphatase Total Protein Albumin Lipase St C. diff Tox Epid 027 Phenytoin 11.7 03/07/18 03/08/18 03/08/18 23:56 05:20 05:20 WBC 9.0 RBC 3.10 L Hgb 9.3 L Hct 27.3 L MCV 88.2 MCH 30.1 MCHC 34.1 RDW 14.5 Plt Count 232 MPV 8.2 Sodium 143 Potassium 3.1 L Chloride 109 H Carbon Dioxide 24.0 Anion Gap 10 BUN 6 L Creatinine 0.67 Estimated GFR Greater than 89 POC Glucose 137 H Random Glucose 133 H Calcium 7.7 L Total Bilirubin 0.9 AST 55 H ALT 84 H Alkaline Phosphatase 850 H Total Protein 5.7 L Albumin 1.[address] C. diff Tox Epid 027 Phenytoin 11.0 03/08/18 03/08/18 03/08/18 08:19 12:09 14:00 WBC RBC Hgb Hct MCV MCH MCHC RDW Plt Count MPV Sodium Potassium Chloride Carbon Dioxide Anion Gap BUN Creatinine Estimated GFR POC Glucose 146 H 208 H Random Glucose Calcium Total Bilirubin AST ALT Alkaline Phosphatase Total Protein Albumin Lipase St C. diff Tox Epid 027 Negative Phenytoin - Imaging Impressions Abdomen/Pelvis CT 03/08/18 08:00 CONCLUSION: 1. Stable CT examination in comparison to 03/04/2018. 2. Persistent abnormal appearance of the gallbladder as described on recent CT abdomen and MRCP reports. 3. Small hiatal hernia with mild circumferential distal esophageal wall thickening. 4. Trace right pleural effusion with bibasilar atelectasis. 5. Nonspecific prostate enlargement. <Rafia Echeverria - Last Filed: 03/08/18 16:26> - Labs CBC & Chem 7: 03/08/18 05:20 03/08/18 05:20 Laboratory Results - last 24 hr 03/07/18 03/08/18 03/08/18 23:56 05:20 05:20 WBC 9.0 RBC 3.10 L Hgb 9.3 L Hct 27.3 L MCV 88.2 MCH 30.1 MCHC 34.1 RDW 14.5 Plt Count 232 MPV 8.2 Sodium 143 Potassium 3.1 L Chloride 109 H Carbon Dioxide 24.0 Anion Gap 10 BUN 6 L Creatinine 0.67 Estimated GFR Greater than 89 POC Glucose 137 H Random Glucose 133 H Calcium 7.7 L Total Bilirubin 0.9 AST 55 H ALT 84 H Alkaline Phosphatase 850 H Total Protein 5.7 L Albumin 1.7 L Lipase 315 Stl C.difficile DNA Amp St C. diff Tox Epid 027 Phenytoin 11.0 03/08/18 03/08/18 03/08/18 08:19 12:09 14:00 WBC RBC Hgb Hct MCV MCH MCHC RDW Plt Count MPV Sodium Potassium Chloride Carbon Dioxide Anion Gap BUN Creatinine Estimated GFR POC Glucose 146 H 208 H Random Glucose Calcium Total Bilirubin AST ALT Alkaline Phosphatase Total Protein Albumin Lipase Stl C.difficile DNA Amp Positive H St C. diff Tox Epid 027 Negative Phenytoin 03/08/18 03/08/18 16:52 21:02 WBC RBC Hgb Hct MCV MCH MCHC RDW Plt Count MPV Sodium Potassium Chloride Carbon Dioxide Anion Gap BUN Creatinine Estimated GFR POC Glucose 286 H 247 H Random Glucose Calcium Total Bilirubin AST ALT Alkaline Phosphatase Total Protein Albumin Lipase Stl C.difficile DNA Amp St C. diff Tox Epid 027 Phenytoin - Imaging Impressions Abdomen/Pelvis CT 03/08/18 08:00 CONCLUSION: 1. Stable CT examination in comparison to 03/04/2018. 2. Persistent abnormal appearance of the gallbladder as described on recent CT abdomen and MRCP reports. 3. Small hiatal hernia with mild circumferential distal esophageal wall thickening. 4. Trace right pleural effusion with bibasilar atelectasis. 5. Nonspecific prostate enlargement. 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 Patient also has significant history of seizures, hypertension, coronary artery disease, depression and hyperlipidemia. Surgical history includes appendectomy, coronary artery stent placement and tonsillectomy. Patient is pleasant and cooperative unable to provide history for consultation. Call placed to Pedro Pena patient's son, unable to contact at this time. Patient was brought to [facility] emergency room in [place] on 03/04/2018 for complaints of nausea, diarrhea, vomiting and fever times 1 week. Patient was transferred to [facility] in [place] for further evaluation of possible gallstone pancreatitis. Upon consultation patient denies any present abdominal pain or tenderness. There is no reported further vomiting noted. Our service has been consulted to evaluate patient for possible gallstone pancreatitis. Upon admission to ER WBC 9.5 hemoglobin 10.3 hematocrit 31.0 platelet count 209 INR 1.3 total bilirubin 1.9 AST 130 ALT 154 with an alk phos of 872 and lipase level of 1635. Gallstone pancreatitis Patient transferred to [facility] ER from [place] to ER due to nausea, vomiting, diarrhea and fever for 6 days. (03/04) CT abdomen and pelvis revealed --> There is minimal basilar atelectasis in the lungs. Small hiatal hernia. No acute findings in the liver, spleen, adrenals, kidneys. There is mural thickening of the gallbladder with questionable mild pericholecystic inflammatory changes. There is also some mild infiltration of fat around the pancreas most characteristic of a mild pancreatitis. No free fluid or free air. No bowel obstruction. Byrd catheter present in bladder. Mural thickening of the gallbladder. Questionable mild inflammatory changes around the gallbladder and pancreas. Small hiatal hernia. No bowel obstruction, free fluid or free air. Byrd catheter in bladder. 03/05/2018 MRCP findings as follows--> Abnormal gallbladder with wall thickening , pericholecystic inflammation, and possibly trace pericholecystic fluid, findings concerning for cholecystitis. There is sludge within the gallbladder. Acute pancreatitis. Hemoglobin 9.6 hematocrit 29.7 total bilirubin 1.5 AST 94 ALT 122 alk phos 755. Based on the above findings we will await general surgery evaluation and recommendations. 03/06/2018 shows gradual trend down of bilirubin and LFTs. Bilirubin now 1.3, AST 93, ALT 110, hemoglobin 10.4. Byrd catheter still notes dark orange urine but adequate amounts. Patient is beginning to ask for liquids and feel appetite. We will trial clear liquids slow amounts as long as there is no nausea vomiting or increasing abdominal pain. Maintain IV hydration for now and if patient continues to improve may DC IV fluids tomorrow. Acute pancreatitis slow gradual improvement, first episode, check CA-19-9, rule out concern for cancer. Probably related to gallbladder sludge and inflammation. Will need follow-up outpatient with general surgery for possible cholecystectomy 03/07/2018 patient has some altered mental status secondary to his dementia but is much more controlled when is in the room. EEG this morning labs show mild trending down of LFTs AST 88, ALT 101, alkaline phosphatase mildly elevated at 927, lipase 386, bilirubin 1 no obvious bleeding current hemoglobin stable at 9.4 no leukocytosis. Marked elevated CA 199 173.5, patient will need EUS as outpatient initially discussed follow-up with general surgery for evaluation of cholecystectomy. 03/08/2018-patient awake and alert oriented x2 and does recognize at bedside. Patient denies abdominal pain, taking p.o. intake well. Discussed plan of care with patient spouse. Hemoglobin 9.3 hematocrit 27.3 total bilirubin 0.9 AST 55 ALT 84 alk phos 850 all trending downwards.(03/08) CT abdomen and pelvis revealed the followin. Stable CT examination in comparison to 03/04/2018. 2. Persistent abnormal appearance of the gallbladder as described on recent CT abdomen and MRCP reports. 3. Small hiatal hernia with mild circumferential distal esophageal wall thickening. 4. Trace right pleural effusion with bibasilar atelectasis. 5. Nonspecific prostate enlargement Plan -Full liquid diet -Continue to monitor labs/LFTs trending downward -Supportive care -Further recommendations to follow based on patient status and findings This patient has been seen by myself and Dr. Loyola and this note is written on his behalf - Attending Attestation Dr. Loyola <Rafia Echeverria - Last Filed: 03/08/18 16:26> (1) Gallstone pancreatitis Status: Acute Code(s): K85.10 - Biliary acute pancreatitis without necrosis or infection - Plan Patient seen and examined Agree with above history and physical Continue with current supportive care Monitor labs Resolving pancreatitis, I do not think that the patient needs endoscopic ultrasound at this point but this is something we can contemplate on outpatient basis if need be or with recurrent symptoms If all appears to be stable tomorrow and patient is tolerating intake patient may be discharged from a GI standpoint follow-up as an outpatient <Meng Loyola - Last Filed: 03/08/18 22:56>
[2018-03-08] MEDS ORDERED: Piperacil/Tazo 3.375 GM Premix 50 ML IV.SIG SCH (18:00)
[2018-03-09] MEDS: Sod Chloride 0.9% Inj 1,000 ML IV.CONT SCH ×2 (03:30→22:03)
[2018-03-09 07:34] LABS: Albumin 1.8 g/dL (3.4-5.0); Anion Gap 10 meq/L (5-15); Blood Urea Nitrogen 5 mg/dL (7-18); Calcium 7.6 mg/dL (8.5-10.1); Carbon Dioxide 24.2 meq/L (21.0-32.0); Chloride 107 meq/L (98-107); Glomerular Filtration Rate Greater Than 89 mL/min (>89); Glucose,Random 173 mg/dL (74-106); Lipase 344 U/L (73-393); Potassium 3.3 meq/L (3.5-5.1)
[2018-03-09 07:36] LABS: Alanine Aminotransferase 70 U/L (12-78); Aspartate Aminotransferase 40 U/L (15-37)
[2018-03-09 07:38] LABS: Alkaline Phosphatase 781 U/L (45-117); Phenytoin (Dilantin) 11.5 mcg/mL (10.0-20.0); Total Protein 5.9 g/dL (6.4-8.2)
[2018-03-09 07:41] LABS: Sodium 141 meq/L (136-145)
[2018-03-09] MEDS: Insulin NovoLOG Aspart Correctional Sugar Inj SQ SCH ×4 (08:35→21:59)
[2018-03-09] MEDS: Heparin - SQ 10,000 UNITS/ML Vial SQ SCH ×2 (08:35→21:57)
[2018-03-09] MEDS: Sertraline 100 MG Tablet PO SCH ×2 (08:35→21:57)
[2018-03-09] MEDS: hydrALAZINE 10 MG Tablet PO SCH ×3 (08:37→17:00)
[2018-03-09] MEDS: Lisinopril 20 MG Tablet PO SCH ×2 (08:38→21:57)
[2018-03-09] MEDS: Metoprolol Tartrate 50 MG Tablet PO SCH ×2 (08:38→21:57)
[2018-03-09] MEDS: Fosphenytoin Inj 200 MGPE in Sodium Chlor 0.9% Inj 50 ML IV.SIG SCH ×2 (09:26→21:58)
--- NOTE | 2018-03-09 14:44 | P.PNIM ---
Subjective Interval history: Patient feels better tolerating full liquid diet at this time. No further abdominal pain. Still some loose stools. No seizure overnight. No headaches. Physical Exam Vital signs: Vital Signs 03/08/18 16:00 03/08/18 20:00 03/09/18 00:00 Temperature 98.3 F 98.1 F 98.1 F Pulse Rate 66 71 63 Respiratory Rate 16 16 16 Blood Pressure 155/70 H 152/69 H 161/74 H Pulse Oximetry 97 97 98 03/09/18 04:00 03/09/18 08:00 03/09/18 12:00 Temperature 97.7 F 97.8 F 97.8 F Pulse Rate 69 68 58 L Respiratory Rate 16 18 17 Blood Pressure 190/88 H 198/86 H 183/77 H Pulse Oximetry 98 98 98 Intake & Output 03/08/18 03/09/18 03/09/18 18:59 06:59 18:59 Intake Total 1954 / 1954 1209 / 1209 259 / 259 Output Total 800 / 800 600 / 600 Balance 1154 / 1154 609 / 609 259 / 259 Weight 81.5 kg Intake: IV 1159 / 1159 609 / 609 259 / 259 NS Inj 1,000 ML @ 50 mls/hr IV. 650 / 650 350 / 350 CONT .Q20H GINA Rx#:[id number] Cerebyx Inj 200 MGPE In NS Inj 54 / 54 54 / 54 54 / 54 50 ML @ 216 mls/hr IV.SIG Q12HR GINA Rx#:[id number] Zosyn 3.375 GM Premix 50 ML @ 100 / 100 100 mls/hr IV.SIG Q6H GINA Rx#: [id number] Keppra Inj 500 MG In NS Inj 100 105 / 105 105 / 105 105 / 105 ML @ 400 mls/hr IV.SIG Q12H GINA Rx#:[id number] Flagyl 500 MG Inj 100 ML @ 100 200 / 200 100 / 100 100 / 100 mls/hr IV.SIG Q8H GINA Rx#: [id number] Oral 555 / 555 600 / 600 Oral Supplement 240 / 240 Output: Urine 800 / 800 600 / 600 Other: Date of Last Bowel Movement 03/08/18 03/08/18 # Bowel Movements 3 Narrative: GENERAL: This is an elderly male patient, in no apparent distress. CARDIOVASCULAR: Regular rate and rhythm without murmurs, gallops, or rubs. RESPIRATORY: Clear to auscultation. Breath sounds equal bilaterally. No wheezes , rales, or rhonchi. GASTROINTESTINAL: Normal bowel sounds. Abdomen soft, non-tender, nondistended. No guarding. Normoactive bowel sounds MUSCULOSKELETAL: Extremities without clubbing, cyanosis. NEUROLOGICAL: More awake today, oriented to self and place. Follow simple commands. No focal deficits. - Urinary Catheter Management Indwelling Urethral Catheter Cath placed during this visit: yes, but has since been removed by the nurse Reason for continuing: Not indwelling catheter Insertion date: 03/04/18 Insertion time: 16:20 Removal date: 03/05/18 Removal time: 11:14 Results - Labs CBC & Chem 7: 03/08/18 05:20 03/09/18 06:57 Laboratory Results - last 24 hr 03/07/18 03/08/18 03/08/18 05:45 14:00 16:52 Sodium Potassium Chloride Carbon Dioxide Anion Gap BUN Creatinine Estimated GFR POC Glucose 286 H Random Glucose Calcium Total Bilirubin AST ALT Alkaline Phosphatase Total Protein Albumin Lipase Stool C.difficile Ag Negative Stool C.difficile Toxin Negative Stl C.difficile DNA Amp Positive H St C. diff Tox Epid 027 Negative Phenytoin Levetiracetam 8.5 L 03/08/18 03/09/18 03/09/18 21:02 06:57 07:23 Sodium 141 Potassium 3.3 L Chloride 107 Carbon Dioxide 24.2 Anion Gap 10 BUN 5 L Creatinine 0.65 Estimated GFR Greater than 89 POC Glucose 247 H 171 H Random Glucose 173 H Calcium 7.6 L Total Bilirubin 0.8 AST 40 H ALT 70 Alkaline Phosphatase 781 H Total Protein 5.9 L Albumin 1.8 L Lipase 344 Stool C.difficile Ag Stool C.difficile Toxin Stl C.difficile DNA Amp St C. diff Tox Epid 027 Phenytoin 11.5 Levetiracetam 03/09/18 12:16 Sodium Potassium Chloride Carbon Dioxide Anion Gap BUN Creatinine Estimated GFR POC Glucose 246 H Random Glucose Calcium Total Bilirubin AST ALT Alkaline Phosphatase Total Protein Albumin Lipase Stool C.difficile Ag Stool C.difficile Toxin Stl C.difficile DNA Amp St C. diff Tox Epid 027 Phenytoin Levetiracetam Assessment and Plan - Assessment (1) Gallstone pancreatitis Code(s): K85.10 - Biliary acute pancreatitis without necrosis or infection Status: Acute (2) Hypokalemia Code(s): E87.6 - Hypokalemia Status: Acute (3) Diarrhea Code(s): R19.7 - Diarrhea, unspecified Status: Acute (4) Diet-controlled diabetes mellitus Code(s): E11.9 - Type 2 diabetes mellitus without complications Status: Chronic (5) Seizures Code(s): R56.9 - Unspecified convulsions Status: Chronic (6) Status post craniectomy Code(s): Z98.890 - Other specified postprocedural states Status: Chronic (7) Encephalopathy Code(s): G93.40 - Encephalopathy, unspecified Status: Acute - Plan Mr. Pena is a 77 y/o male with a history of cerebellar AVM s/p right suboccipital craniectomy for resection of cerebellar mass on 03/30/15, seizures , hypertension, CAD, depression, and hyperlipidemia who presented to the ER in [place] for nausea, diarrhea, vomiting, and fevers for 6 days. The patient was found to have findings suspicious for gallstone pancreatitis and was transferred to [facility] under the hospitalist service for further evaluation and management. Acute gallstone pancreatitis - -Abdomen/pelvis CT shows mural thickening of gallbladder, mild inflammatory changes around gallbladder and pancreas, no bowel obstruction -MRCP 03/05/2018, findings normal gallbladder with wall thickening, pericholecystic inflammation, possibly trace pericholecystic fluids, findings concerning for cholecystitis. There is large within the gallbladder. -LFTs continue to trend down. Lipase 344. -Appreciate GI input. Since first episode of pancreatitis, CVA 199 was ordered -173.5. Possible elevation due to sludge in gallbladder. Per GI, recommends supportive care,allow labs to trend down and surgery later. Consideration for outpatient ultrasound endoscopy Tolerating full liquid diet advance to soft diet. -Cautious hydration Zofran 4 milligrams IV push every 6 hours as needed for nausea or vomiting -Discontinue Flagyl -Appreciate surgical input, has signed off. prefers medical management at this time. If symptoms recur, then will reconsider surgery LFTs and lipase trending down -Advance to soft diet Diarrhea, patient on antibiotics C. difficile negative We will stop Zosyn, stop Flagyl Initiate Lactinex Breakthrough seizures Halicat called yesterday per previous providers documentation, had seizure, approximately 5 minutes. Was given Ativan. Dilantin level subtherapeutic 3-he has been nauseous and vomiting. -Continue Keppra -level pending -Continue with Dilantin 200 mg IV twice daily and change to p.o. Dilantin level 11.5 -Continue Keppra 500 mg IV twice daily and convert to p.o. Appreciate neurology recommendations. EEG mild encephalopathy CT and brain MRI negative Continue with seizure precautions No driving. Diabetes mellitus type 2, uncontrolled, [id number] Hyperglycemia endorses history of diabetes, however he had been manage with diet Was on glyburide and metformin. Blood glucose has been noted elevated initially 416 on BMP, today 232 Hemoglobin A1c 8.4 Continue with Accu-Cheks before meals and at bedtime and insulin therapy as needed -We will continue to monitor, may need to be restarted on either glyburide or metformin, however patient's p.o. intake at this time is unpredictable. We will continue with subcu insulin for now. Hypokalemia -Potassium 3.1, replaced History of coronary artery disease with stents -Continue metoprolol -Continue to hold Plavix for now. History of hypertension, chronic essential Blood pressure was elevated, it is slowly improving -Continue lisinopril -cont. Vasotec PRN -Continue with hydralazine 10 mg po TID Add Norvasc. Heparin 5000 units subcu for DVT prophylaxis PT and OT evaluation Continue physical therapy Discharge Planning: Possible discharge to home if tolerates diet in the morning with home health care. (3) Diarrhea Qualifiers: Diarrhea type: unspecified type Qualified Code(s): R19.7 - Diarrhea, unspecified
--- NOTE | 2018-03-09 14:47 | P.DCO ---
- Diagnosis (1) Diabetes mellitus type II, uncontrolled Status: Chronic (2) Gallstone pancreatitis Status: Resolved - Physical Therapy Order: Evaluate and treat - Home Health Nursing Order: Medical education, Diabetic education, Nursing assessment with vital signs - Case Management Consult Yes - Certification I have seen patient Pedro Pena on 03/09/18. My clinical findings support the need for the requested home health care services because: Limited mobility due to disease progression I certify that my clinical findings support that this patient is homebound because: Impaired cognitive ability/safety (1) Diabetes mellitus type II, uncontrolled Qualifiers: Glycemic state: with hyperglycemia Qualified Code(s): E11.65 - Type 2 diabetes mellitus with hyperglycemia
--- NOTE | 2018-03-09 15:59 | P.PNGI ---
Subjective Interval history: Patient awake and alert laying supine in bed. Nurse reporting patient fed and eating well <EcheverriaRafia - Last Filed: 03/09/18 15:52> Physical Exam Vital signs: Vital Signs 03/08/18 16:00 03/08/18 20:00 03/09/18 00:00 Temperature 98.3 F 98.1 F 98.1 F Pulse Rate 66 71 63 Respiratory Rate 16 16 16 Blood Pressure 155/70 H 152/69 H 161/74 H Pulse Oximetry 97 97 98 03/09/18 04:00 03/09/18 08:00 03/09/18 12:00 Temperature 97.7 F 97.8 F 97.8 F Pulse Rate 69 68 58 L Respiratory Rate 16 18 17 Blood Pressure 190/88 H 198/86 H 183/77 H Pulse Oximetry 98 98 98 Intake & Output 03/08/18 03/09/18 03/09/18 18:59 06:59 18:59 Intake Total 1954 / 1954 1209 / 1209 259 / 259 Output Total 800 / 800 600 / 600 Balance 1154 / 1154 609 / 609 259 / 259 Weight 81.5 kg Intake: IV 1159 / 1159 609 / 609 259 / 259 NS Inj 1,000 ML @ 50 mls/hr IV. 650 / 650 350 / 350 CONT .Q20H GINA Rx#:[id number] Cerebyx Inj 200 MGPE In NS Inj 54 / 54 54 / 54 54 / 54 50 ML @ 216 mls/hr IV.SIG Q12HR GINA Rx#:[id number] Zosyn 3.375 GM Premix 50 ML @ 100 / 100 100 mls/hr IV.SIG Q6H GINA Rx#: [id number] Keppra Inj 500 MG In NS Inj 100 105 / 105 105 / 105 105 / 105 ML @ 400 mls/hr IV.SIG Q12H GINA Rx#:[id number] Flagyl 500 MG Inj 100 ML @ 100 200 / 200 100 / 100 100 / 100 mls/hr IV.SIG Q8H GINA Rx#: [id number] Oral 555 / 555 600 / 600 Oral Supplement 240 / 240 Output: Urine 800 / 800 600 / 600 Other: Date of Last Bowel Movement 03/08/18 03/08/18 # Bowel Movements 3 - Constitutional no acute distress - Routine HEENT Exam Head: Present: normocephalic - Routine Respiratory Exam Present: CTA bilaterally. Absent: accessory muscle use - Routine Cardiovascular Exam Present: RRR - Routine Abdominal Exam Present: soft, normoactive bowel sounds. Absent: tenderness, distended, guarding, firm - Routine Skin Exam Present: dry, warm - Routine Neurological Exam Present: alert - Routine Psychiatric Exam Present: cooperative - Urinary Catheter Management Indwelling Urethral Catheter Cath placed during this visit: yes, but has since been removed by the nurse Reason for continuing: Not indwelling catheter Insertion date: 03/04/18 Insertion time: 16:20 Removal date: 03/05/18 Removal time: 11:14 <Rafia Echeverria - Last Filed: 03/09/18 15:52> Vital signs: Vital Signs 03/09/18 00:00 03/09/18 04:00 03/09/18 08:00 Temperature 98.1 F 97.7 F 97.8 F Pulse Rate 63 69 68 Respiratory Rate 16 16 18 Blood Pressure 161/74 H 190/88 H 198/86 H Pulse Oximetry 98 98 98 03/09/18 12:00 03/09/18 16:00 Temperature 97.8 F 97.9 F Pulse Rate 58 L 62 Respiratory Rate 17 18 Blood Pressure 183/77 H 175/77 H Pulse Oximetry 98 98 Intake & Output 03/09/18 03/09/18 03/10/18 06:59 18:59 06:59 Intake Total 1209 / 1209 899 / 899 54 / 54 Output Total 600 / 600 1600 / 1600 Balance 609 / 609 -701 / -701 54 / 54 Weight 81.5 kg Intake: IV 609 / 609 359 / 359 54 / 54 NS Inj 1,000 ML @ 50 mls/hr IV. 350 / 350 CONT .Q20H GINA Rx#:[id number] Cerebyx Inj 200 MGPE In NS Inj 54 / 54 54 / 54 54 / 54 50 ML @ 216 mls/hr IV.SIG Q12HR GINA Rx#:[id number] Keppra Inj 500 MG In NS Inj 100 105 / 105 105 / 105 ML @ 400 mls/hr IV.SIG Q12H GINA Rx#:[id number] Flagyl 500 MG Inj 100 ML @ 100 100 / 100 200 / 200 mls/hr IV.SIG Q8H GINA Rx#: [id number] Oral 600 / 600 540 / 540 Output: Urine 600 / 600 1600 / 1600 Other: Date of Last Bowel Movement 03/08/18 03/08/18 # Bowel Movements 0 - Urinary Catheter Management Indwelling Urethral Catheter Cath placed during this visit: no <NirMeng Holloway - Last Filed: 03/09/18 22:55> Results - Labs CBC & Chem 7: 03/08/18 05:20 03/09/18 06:57 Laboratory Results - last 24 hr 03/07/18 03/08/18 03/08/18 05:45 14:00 16:52 Sodium Potassium Chloride Carbon Dioxide Anion Gap BUN Creatinine Estimated GFR POC Glucose 286 H Random Glucose Calcium Total Bilirubin AST ALT Alkaline Phosphatase Total Protein Albumin Lipase Stool C.difficile Ag Negative Stool C.difficile Toxin Negative Stl C.difficile DNA Amp Positive H St C. diff Tox Epid 027 Negative Phenytoin Levetiracetam 8.5 L 03/08/18 03/09/18 03/09/18 21:02 06:57 07:23 Sodium 141 Potassium 3.3 L Chloride 107 Carbon Dioxide 24.2 Anion Gap 10 BUN 5 L Creatinine 0.65 Estimated GFR Greater than 89 POC Glucose 247 H 171 H Random Glucose 173 H Calcium 7.6 L Total Bilirubin 0.8 AST 40 H ALT 70 Alkaline Phosphatase 781 H Total Protein 5.9 L Albumin 1.8 L Lipase 344 Stool C.difficile Ag Stool C.difficile Toxin Stl C.difficile DNA Amp St C. diff Tox Epid 027 Phenytoin 11.5 Levetiracetam 03/09/18 12:16 Sodium Potassium Chloride Carbon Dioxide Anion Gap BUN Creatinine Estimated GFR POC Glucose 246 H Random Glucose Calcium Total Bilirubin AST ALT Alkaline Phosphatase Total Protein Albumin Lipase Stool C.difficile Ag Stool C.difficile Toxin Stl C.difficile DNA Amp St C. diff Tox Epid 027 Phenytoin Levetiracetam <Rafia Echeverria - Last Filed: 03/09/18 15:52> - Labs CBC & Chem 7: 03/08/18 05:20 03/09/18 06:57 Laboratory Results - last 24 hr 03/07/18 03/08/18 03/09/18 05:45 14:00 06:57 Sodium 141 Potassium 3.3 L Chloride 107 Carbon Dioxide 24.2 Anion Gap 10 BUN 5 L Creatinine 0.65 Estimated GFR Greater than 89 POC Glucose Random Glucose 173 H Calcium 7.6 L Total Bilirubin 0.8 AST 40 H ALT 70 Alkaline Phosphatase 781 H Total Protein 5.9 L Albumin 1.8 L Lipase 344 Stool C.difficile Ag Negative Stool C.difficile Toxin Negative Phenytoin 11.5 Levetiracetam 8.5 L 03/09/18 03/09/18 03/09/18 07:23 12:16 16:59 Sodium Potassium Chloride Carbon Dioxide Anion Gap BUN Creatinine Estimated GFR POC Glucose 171 H 246 H 194 H Random Glucose Calcium Total Bilirubin AST ALT Alkaline Phosphatase Total Protein Albumin Lipase Stool C.difficile Ag Stool C.difficile Toxin Phenytoin Levetiracetam 03/09/18 22:01 Sodium Potassium Chloride Carbon Dioxide Anion Gap BUN Creatinine Estimated GFR POC Glucose 293 H Random Glucose Calcium Total Bilirubin AST ALT Alkaline Phosphatase Total Protein Albumin Lipase Stool C.difficile Ag Stool C.difficile Toxin Phenytoin Levetiracetam <Meng Loyola - Last Filed: 03/09/18 22:55> Assessment and Plan (1) Gallstone pancreatitis Status: Resolved Code(s): K85.10 - Biliary acute pancreatitis without necrosis or infection - Plan 03/09/2018 Resolving pancreatitis Patient awake alert oriented x2. Denies any abdominal pain, nurse reports patient fed and taking food well. No obvious bleeding reported. Hemoglobin 9.3 hematocrit 27.3 total bilirubin 0.8 AST 40 ALT 70 alk phos 781 lipase 344 all trending down. Plan -Cardiac diet -Continue to monitor labs/trending downward -Supportive care -Patient may be discharged from a GI standpoint please advised to follow-up as outpatient: EUS may be a consideration if patient has recurring symptoms This patient has been seen by myself and Dr. Loyola and this note is written on his behalf - Attending Attestation <Rafia Echeverria - Last Filed: 03/09/18 15:52> (1) Gallstone pancreatitis Status: Resolved Code(s): K85.10 - Biliary acute pancreatitis without necrosis or infection - Plan Patient seen and examined Agree with above history and physical Continue with current supportive care Monitor labs We will sign off <eMng Loyola - Last Filed: 03/09/18 22:55>
[2018-03-10 08:32] VITALS: BP 200/80; PULSE 66; RESP 18; TEMP 97.7; O2SAT 98
[2018-03-10] MEDS: Lisinopril 20 MG Tablet PO SCH (08:56)
[2018-03-10] MEDS: Metoprolol Tartrate 50 MG Tablet PO SCH (08:56)
[2018-03-10] MEDS: hydrALAZINE 10 MG Tablet PO SCH (08:56)
[2018-03-10] MEDS: Sertraline 100 MG Tablet PO SCH (08:57)
[2018-03-10] MEDS: Heparin - SQ 10,000 UNITS/ML Vial SQ SCH (08:57)
[2018-03-10] MEDS: Insulin NovoLOG Aspart Correctional Sugar Inj SQ SCH (08:57)
[2018-03-10] MEDS ORDERED: Phenytoin Sodium 100 MG Capsule PO SCH (09:00)
[2018-03-10] MEDS ORDERED: Lactobacillus Acidophilus/L. Spores Tablet PO SCH (09:00)
--- NOTE | 2018-03-10 09:17 | P.DS ---
Date of admission: 03/04/18 19:10 Primary care physician: Dada Mazariegos MD Anticipated date of discharge: 03/10/18 Brief History from admission: Mr. Pena is a 77 y/o male with a history of cerebellar AVM s/p right suboccipital craniectomy for resection of cerebellar mass on 03/30/15, seizures , hypertension, CAD, depression, and hyperlipidemia who presented to the ER in [place] for nausea, diarrhea, vomiting, and fevers for 6 days. The patient was found to have findings suspicious for gallstone pancreatitis and was transferred to [facility] under the hospitalist service for further evaluation and management. . Patient update on day of discharge: Patient states that he is doing well. No seizures overnight. Tolerating diet. No abdominal pain. Wants to go home. DS: Diagnosis - Discharge Diagnosis (1) Gallstone pancreatitis Status: Resolved Diagnosis: Principal (2) Diabetes mellitus type II, uncontrolled Status: Chronic Diagnosis: Secondary (3) Seizures Status: Chronic Diagnosis: Secondary (4) Status post craniectomy Status: Chronic Diagnosis: Secondary (5) Encephalopathy Status: Resolved Diagnosis: Secondary (6) Hypokalemia Status: Resolved Diagnosis: Secondary (7) Diarrhea Status: Resolved Diagnosis: Secondary DS: Medications - Discharge Medications Prescriptions: acidophilus-sporogenes [Acidophilus Ex Str (L. sporog)] 1 tab PO BID #20 tab phenytoin sodium extended 200 mg PO BID #60 cap DS: Summary Hospital Course: These are the medical issues addressed during this hospitalization: 77 y/o male with a history of cerebellar AVM s/p right suboccipital craniectomy for resection of cerebellar mass on 03/30/15, seizures, hypertension, CAD, depression, and hyperlipidemia who presented to the ER in [place] for nausea , diarrhea, vomiting, and fevers for 6 days. The patient was found to have findings suspicious for gallstone pancreatitis and was transferred to [facility] under the hospitalist service for further evaluation and management. Acute gallstone pancreatitis - -Abdomen/pelvis CT shows mural thickening of gallbladder, mild inflammatory changes around gallbladder and pancreas, no bowel obstruction -MRCP 03/05/2018, findings normal gallbladder with wall thickening, pericholecystic inflammation, possibly trace pericholecystic fluids, findings concerning for cholecystitis. There is large within the gallbladder. -LFTs and lipase continue to trend down during the hospitalization. GI service and general surgery was consulted during the hospitalization. since first episode of pancreatitis, CVA 199 was ordered-173.5. Possible elevation due to sludge in gallbladder. Per GI, recommends supportive care,allow labs to trend down and surgery later. Consideration for outpatient ultrasound endoscopy Patient was initially placed on bowel rest was able to advance diet to ADA diet prior to discharge to home. Zofran 4 milligrams IV push every 6 hours as needed for nausea or vomiting Was initially placed on Flagyl on admission and later discontinued. Diarrhea, patient on antibiotics C. difficile negative We will stop Zosyn, stop Flagyl Initiate Lactinex Breakthrough seizures on March 08 Patient had witnessed seizure, approximately 5 minutes. Was given Ativan. Dilantin level was found to be subtherapeutic increased Dilantin 200 mg IV twice daily -Continue Keppra 500 mg IV twice daily and convert to p.o. Appreciate neurology recommendations. EEG obtained showed mild encephalopathy CT and brain MRI negative seizure precautions initiated during hospitalization No driving. Diabetes mellitus type 2, uncontrolled, [id number] Hyperglycemia Was on glyburide and metformin at home Hemoglobin A1c 8.4 Continue with Accu-Cheks before meals and at bedtime and insulin therapy as needed Hypokalemia -Potassium 3.1, replaced History of coronary artery disease with stents -Continue metoprolol -Plavix on hold during hospitalization due to possibility of needing a procedure. History of hypertension, chronic essential Blood pressure was elevated, it is slowly improving -Continue lisinopril Vasotec as needed was provided -Continue with hydralazine 10 mg po TID Add Norvasc to regimen. Heparin 5000 units subcu for DVT prophylaxis PT and OT evaluation Patient has gained maximum benefit from hospitalization and is ready to be transitioned home with home health care with outpatient follow-up. - Time Spent with Patient Total time spent providing and/or coordinating discharge services: Less than 30 minutes - Quality: VTE Deep Vein Thrombosis/Pulmonary Embolism Present on Admission: No Exam Vital signs: Vital Signs 03/09/18 12:00 03/09/18 16:00 03/10/18 00:00 Temperature 97.8 F 97.9 F 97.9 F Pulse Rate 58 L 62 64 Respiratory Rate 17 18 21 Blood Pressure 183/77 H 175/77 H 168/79 H Pulse Oximetry 98 98 99 03/10/18 02:01 03/10/18 04:00 03/10/18 08:00 Temperature 98.4 F 97.7 F Pulse Rate 74 61 66 Respiratory Rate 21 18 Blood Pressure 181/78 H 200/80 H Pulse Oximetry 99 98 Intake & Output 03/09/18 03/10/18 03/10/18 18:59 06:59 18:59 Intake Total 899 / 899 499 / 499 Output Total 1600 / 1600 1600 / 1600 Balance -701 / -701 -1101 / -1101 Weight 81 kg Intake: IV 359 / 359 259 / 259 Cerebyx Inj 200 MGPE In NS Inj 54 / 54 54 / 54 50 ML @ 216 mls/hr IV.SIG Q12HR GINA Rx#:[id number] Keppra Inj 500 MG In NS Inj 100 105 / 105 105 / 105 ML @ 400 mls/hr IV.SIG Q12H GINA Rx#:[id number] Flagyl 500 MG Inj 100 ML @ 100 200 / 200 100 / 100 mls/hr IV.SIG Q8H GINA Rx#: [id number] Oral 540 / 540 240 / 240 Output: Urine 1600 / 1600 1600 / 1600 Other: Date of Last Bowel Movement 03/08/18 03/09/18 # Bowel Movements 0 Narrative: GENERAL: This is an elderly male patient, in no apparent distress. CARDIOVASCULAR: Regular rate and rhythm without murmurs, gallops, or rubs. RESPIRATORY: Clear to auscultation. Breath sounds equal bilaterally. No wheezes , rales, or rhonchi. GASTROINTESTINAL: Normal bowel sounds. Abdomen soft, non-tender, nondistended. No guarding. Normoactive bowel sounds MUSCULOSKELETAL: Extremities without clubbing, cyanosis. NEUROLOGICAL: More awake today, oriented to self and place. Follow simple commands. No focal deficits. Results Procedures completed during hospitalization: None Labs on day of discharge: Labs from last 24 hours 03/10/18 03/09/18 03/09/18 08:41 22:01 16:59 POC Glucose 173 H 293 H 194 H Stool C.difficile Ag Stool C.difficile Toxin Levetiracetam 03/09/18 03/08/18 03/07/18 12:16 14:00 05:45 POC Glucose 246 H Stool C.difficile Ag Negative Stool C.difficile Toxin Negative Levetiracetam 8.5 L - Impressions ITS Impressions Chest X-Ray 03/04/18 15:28 CONCLUSION: Negative examination. Cholangiopancreatography MRI 03/05/18 00:00 CONCLUSION: 1. Abnormal gallbladder with wall thickening, pericholecystic inflammation, and possibly trace pericholecystic fluid, findings concerning for cholecystitis. There is sludge within the gallbladder. 2. Acute pancreatitis. Head CT 03/07/18 00:00 CONCLUSION: 1. Stable postoperative features in the posterior fossa with evidence of malacia in the right cerebellar hemisphere. 2. Senescent changes without acute abnormality. Specifically, no evidence for acute hemorrhage. . Head MRI 03/07/18 00:00 CONCLUSION: 1. Postoperative features of prior right occipital craniotomy and encephalomalacia in the right cerebellar hemisphere. 2. Senescent changes with mild periventricular ischemic white matter demyelination. 3. No acute abnormality. Specifically, no evidence for acute infarction. Abdomen/Pelvis CT 03/08/18 08:00 CONCLUSION: 1. Stable CT examination in comparison to 03/04/2018. 2. Persistent abnormal appearance of the gallbladder as described on recent CT abdomen and MRCP reports. 3. Small hiatal hernia with mild circumferential distal esophageal wall thickening. 4. Trace right pleural effusion with bibasilar atelectasis. 5. Nonspecific prostate enlargement. Discharge Plan - Discharge Disposition Patient Disposition: /Home Health Service - Discharge Condition Condition: Stable - Discharge Order Discharge Orders: Discharge Order (Routine); Ordered 03/10/18 Ordered By: Karen Alexis - Discharge Details Anticipated Discharge Date: 03/10/18 - Physicians Team Primary Care Provider: Dada Mazariegos Attending Provider: Karen Alexis Other Providers: Tamra Piña MD ; Myao Martinez MD ; [employer] ; Albaro Coley MD
[2018-03-10] MEDS ORDERED: amLODIPine 5 MG Tablet PO SCH (10:00)
== END 2018-03-10 11:44 | disposition home health service (06) ==
LOC: PHED 13:52 → PHEDH 19:10 → N07 21:26 → PHEDH 23:31 → N07 03-05 00:01
PROVIDERS: ADMIT Family Medicine; ATTEND Family Medicine